=== PATIENT | female | born 1980 | race Caucasian/White ===

== ENCOUNTER 2019-10-06 16:21 | Outpatient (CLI) | payer OTHER, SELFPAY ==
--- NOTE | ~2019-10-06 | MM_ITS ---
EXAMINATION: MM screening [facility] BI w cit[facility] HISTORY: Screening mammogram TECHNIQUE: Craniocaudal and mediolateral oblique 3-D tomosynthesis images were obtained and synthetic 2-D images were generated. CAD analysis was submitted and interpreted. COMPARISON: 07/27/2018, 06/30/2018, 11/28/2016 BREAST PARENCHYMAL COMPOSITION: The breasts are heterogeneously dense, which may obscure small masses . FINDINGS: RIGHT BREAST: There is interval increase in size of cysts in the upper outer quadrant of the breast. No suspicious mass, calcification, or architectural distortion is identified. LEFT BREAST: There is a possible low density mass in the posterior third of the lower outer breast 7 cm from the nipple best seen on the craniocaudal view (CC image 32/95). IMPRESSION: 1. Possible left breast mass 2. Additional mammographic views and possible breast ultrasound are recommended. BI-RADS Category 0: Incomplete: Needs additional imaging evaluation. Reviewed, dictated and finalized at location A. IMPRESSION: 1. Possible left breast mass 2. Additional mammographic views and possible breast ultrasound are recommended . BI-RADS Category 0: Incomplete: Needs additional imaging evaluation.
== END 2019-10-06 16:22 | disposition home or self-care (01) ==
LOC: ANHIMG 16:49
PROVIDERS: PCP Physician Assistant; Visit Provider Physician Assistant
DX: Z12.31 Encounter for screening mammogram for malignant neoplasm of breast (principal); R92.8 Other abnormal and inconclusive findings on diagnostic imaging of breast
CPT/HCPCS: 77063; 77067

== ENCOUNTER 2019-10-26 11:27 | Outpatient (CLI) | payer OTHER, SELFPAY ==
--- NOTE | ~2019-10-26 | MMUS_ITS ---
EXAMINATION: MM diagnostic mammo unilat LT, US breast LT limited HISTORY: Possible left breast mass on screening mammogram TECHNIQUE: Additional 3-D tomosynthesis images of the left breast were performed and synthetic 2-D im ages were generated. CAD analysis was submitted and interpreted. High resolution limited left breast ultrasound was performed. COMPARISON: 10/06/2019, 06/30/2018, 11/28/2016 FINDINGS: MAMMOGRAPHIC FINDINGS: No definite persistent mass is identified with spot compression of the left breast. There is no suspi cious calcification or architectural distortion. ULTRASOUND: Limited ultrasound of the outer left breast is performed. There are multiple simple and complicated c ysts which measure up to 6 mm. No suspicious cystic or solid mass is identified. IMPRESSION: 1. . No mammographic or sonographic evidence of malignancy. 2. Recommend routine screening mammography in one year. BI-RADS Category 2: Benign finding(s). Reviewed, dictated and finalized at location A. IMPRESSION: 1. . No mammographic or sonographic evidence of malignancy. 2. Recommend routine screening mammography in one year. BI-RADS Category 2: Benign finding(s).
== END 2019-10-26 11:28 | disposition home or self-care (01) ==
LOC: ANHIMG 11:28
PROVIDERS: PCP Physician Assistant; Visit Provider Physician Assistant
DX: R92.8 Other abnormal and inconclusive findings on diagnostic imaging of breast (principal)
CPT/HCPCS: 76642; 77065

== ENCOUNTER 2021-01-05 12:40 | Outpatient (CLI) | payer OTHER, SELFPAY ==
--- NOTE | ~2021-01-05 | MMUS_ITS ---
EXAMINATION: MM diagnostic [facility] BI w citlaly, US breast RT limited HISTORY: Palpable mass in the upper outer quadrant of the right breast TECHNIQUE: Craniocaudal, mediolateral, and mediolateral oblique 3-D tomosynthesis images of the right breast were performed and synthetic 2-D images were generated. CAD analysis was submitted and interp reted. High resolution limited right breast ultrasound was performed. COMPARISON: 10/26/2019, 10/06/2019, 07/27/2018, 06/30/2018 BREAST PARENCHYMAL COMPOSITION: The breasts are heterogeneously dense, which may obscure small masses . FINDINGS: MAMMOGRAPHIC FINDINGS: Right breast: There is a 3.7 cm oval, obscured, equal density mass in the posterior third of the uppe r outer quadrant of the breast corresponding to the palpable abnormality of concern. Left breast: There is no evidence of suspicious mass, calcification, or architectural distortion to suggest malignancy. There has been no suspicious interval change. ULTRASOUND: There is a 3.6 x 2.5 cm cyst at the 9:00 location 8 cm from the nipple corresponding to the palpable abnormality of concern. An adjacent 1.4 x 0.9 cm cyst is present at the 9:00 location 5 cm from the n ipple. IMPRESSION: 1. Right breast cysts corresponding to the palpable abnormality of concern. No mammographic or sonogr aphic evidence of malignancy. 2. Recommend routine screening mammography in one year. BI-RADS Category 2: Benign finding(s). Reviewed, dictated and finalized at location A. IMPRESSION: 1. Right breast cysts corresponding to the palpable abnormality of concern. No mammographic or sonographic evidence of malignancy. 2. Recommend routine screening mammography in one year. BI-RADS Category 2: Benign finding(s).
== END 2021-01-05 12:41 | disposition home or self-care (01) ==
LOC: ANHIMG 12:44
PROVIDERS: PCP Physician Assistant; Visit Provider Physician Assistant
DX: N63.0 Unspecified lump in unspecified breast (principal)
CPT/HCPCS: 76642; 77062; 77066; G0279

== ENCOUNTER 2022-01-08 10:22 | Outpatient (CLI) | payer OTHER, SELFPAY ==
--- NOTE | ~2022-01-08 | MM_ITS ---
EXAMINATION: MM screening [facility] BI w [facility] HISTORY: Screening mammogram, family history of breast cancer in her mother. TECHNIQUE: Craniocaudal and mediolateral oblique 3-D tomosynthesis images were obtained and synthetic 2-D images were generated. CAD analysis was submitted and interpreted. COMPARISON: 01/05/2021, 10/26/2019, 10/06/2019, 07/27/2018, 06/30/2018 BREAST PARENCHYMAL COMPOSITION: The breasts are heterogeneously dense, which may obscure small masses . FINDINGS: Waxing and waning breast masses are consistent with cysts. There is no suspicious mass, johnathan cification, or architectural distortion to suggest malignancy in either breast. There has been no daria picious interval change. IMPRESSION: 1. No mammographic evidence of malignancy. 2. Recommend routine screening mammography in one year. BI-RADS Category 2: Benign finding(s). Reviewed, dictated and finalized at location A.
== END 2022-01-08 10:23 | disposition home or self-care (01) ==
PROVIDERS: PCP Physician Assistant; Visit Provider Physician Assistant
DX: Z12.31 Encounter for screening mammogram for malignant neoplasm of breast (principal)
CPT/HCPCS: 77063; 77067

== ENCOUNTER 2022-08-22 09:23 | Outpatient (CLI) | payer OTHER, SELFPAY ==
--- NOTE | ~2022-08-22 | US_ITS ---
EXAMINATION: US_VDOPREFBI_US DATE: 08/22/2022 10:48 INDICATION: Varicose veins of lower extremity. TECHNIQUE: Grayscale ultrasound images without and with compression and Doppler ultrasound images of the bilateral lower extremity veins were obtained. COMPARISON: None. FINDINGS: The visualized portions of right common femoral vein, profunda (deep) femoral vein, femoral vein, pop liteal vein, peroneal veins, posterior tibial veins, and greater saphenous vein outflow are patent. R ight greater saphenous vein measures 8 mm in the upper thigh, 6 mm in the lower thigh, and 5 mm in th e calf. Right small saphenous vein measures 5 mm in the upper calf and 4 mm in the lower calf. There is no reflux. The visualized portions of left common femoral vein, profunda femoral vein, femoral vein, popliteal v ein, peroneal veins, posterior tibial veins, and greater saphenous vein outflow are patent. Left grea ter saphenous vein measures 8 mm in the upper thigh, 6 mm in the lower thigh, and 4 mm in the calf. L eft small saphenous vein measures 5 mm in the upper calf and 3 mm the lower calf. IMPRESSION: 1. No deep venous thrombosis. 2. No reflux. Reviewed, dictated and finalized at location A.
== END 2022-08-22 09:24 | disposition home or self-care (01) ==
PROVIDERS: PCP Physician Assistant; Visit Provider Physician Assistant
DX: I83.93 Asymptomatic varicose veins of bilateral lower extremities (principal)
CPT/HCPCS: 93970

== ENCOUNTER → 2022-12-03 15:44 | Outpatient (CLI) | payer OTHER, SELFPAY ==
--- NOTE | ~2022-12-03 | XR_ITS ---
XR wrist LT min 3V 12/03/2022 16:44 INDICATION: Left wrist pain PROCEDURE: 4 views left wrist COMPARISON: No prior studies for comparison. FINDINGS: Fracture, dislocation or subluxation is not identified. The soft tissues appear within norm al limits. No foreign bodies are identified. IMPRESSION: 1: NO ACUTE BONE OR JOINT ABNORMALITY IDENTIFIED. Reviewed, dictated and finalized at location A.
== END ==
PROVIDERS: PCP Physician Assistant; Visit Provider Physician Assistant
DX: S69.92XA Unspecified injury of left wrist, hand and finger(s), initial encounter (principal); X58.XXXA Exposure to other specified factors, initial encounter
CPT/HCPCS: 73110

== ENCOUNTER 2022-12-17 16:38 | Outpatient (CLI) | payer OTHER, SELFPAY ==
--- NOTE | ~2022-12-17 | MR_ITS ---
MRI of the left wrist Technique: Coronal T1 weighted and proton density fat sat images, and axial and sagittal proton-densi ty and proton-density fat-sat images were acquired. Clinical History: Injury Findings: Scapholunate ligament is intact, and there is no widening of the scapholunate interval. Abhishek otriquetral ligament is intact. TFCC is intact. Bone marrow signals are unremarkable. Joint spaces are preserved. No joint effusion or synovitis evid ent. Flexor tendons in the carpal tunnel are unremarkable. Extensor tendons are unremarkable. No soft tiss ue mass or fluid collection evident. IMPRESSION: No significant abnormality identified. Reviewed, dictated and finalized at location .
== END 2022-12-17 16:39 | disposition home or self-care (01) ==
PROVIDERS: PCP Physician Assistant; Visit Provider Physician Assistant
DX: S69.92XA Unspecified injury of left wrist, hand and finger(s), initial encounter (principal)
CPT/HCPCS: 73221

== ENCOUNTER 2023-07-04 09:07 | Outpatient (CLI) | payer OTHER, SELFPAY ==
--- NOTE | ~2023-07-04 | MM_ITS ---
EXAMINATION: MM screening [facility] BI w cit[facility] HISTORY: Screening TECHNIQUE: Craniocaudal and mediolateral oblique 3-D tomosynthesis images were obtained and synthetic 2-D images were generated. CAD analysis was submitted and interpreted. COMPARISON: Comparison to multiple prior studies sequentially, with oldest reviewed study dated 06/30. BREAST PARENCHYMAL COMPOSITION: Dense: The breasts are heterogeneously dense, which may obscure small masses FINDINGS: Decreased size of mass in the upper outer quadrant of the right breast, consistent with kno wn cysts. Stable small obscured masses in the left breast, consistent with known cysts. No new masses , calcifications or architectural distortion in either breast to suggest malignancy. IMPRESSION: 1. No mammographic evidence of malignancy. 2. Recommend routine screening mammography in one year. BI-RADS Category 2: Benign finding(s). Reviewed, dictated and finalized at location A. 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
== END 2023-07-04 09:08 | disposition home or self-care (01) ==
LOC: ANHIMG 09:13
PROVIDERS: PCP Physician Assistant; Visit Provider Physician Assistant
DX: Z12.31 Encounter for screening mammogram for malignant neoplasm of breast (principal)
CPT/HCPCS: 77063; 77067

== ENCOUNTER 2024-09-01 10:25 | Outpatient (CLI) | payer OTHER, SELFPAY ==
--- NOTE | ~2024-09-01 | MM_ITS ---
EXAMINATION: MM screening [facility] BI w [facility] HISTORY: Screening TECHNIQUE: Craniocaudal and mediolateral oblique 3-D tomosynthesis images were obtained and synthetic 2-D images were generated. CAD analysis was submitted and interpreted. COMPARISON: Comparison to multiple prior studies sequentially, with oldest reviewed study dated 10/05. BREAST PARENCHYMAL COMPOSITION: Dense: The breasts are heterogeneously dense, which may obscure small masses FINDINGS: There are bilateral breast masses centered in the upper outer quadrant of both breasts, par tially obscured by fibroglandular content. Some of these masses are stable and some new or increased in size. There are no suspicious calcifications. IMPRESSION: 1. Bilateral breast masses. 2. Additional mammographic views and possible breast ultrasound are recommended. BI-RADS Category 0: Incomplete: Needs additional imaging evaluation. Reviewed, dictated and finalized at location A. IMPRESSION: 1. Bilateral breast masses. 2. Additional mammographic views and possible breast ultrasound are recommended . BI-RADS Category 0: Incomplete: Needs additional imaging evaluation.
--- OUTSIDE RECORDS SUMMARY | 2024-09-01 12:07 | XMS_ITS | Clinical Summary ---
Author Organization [facility] [place] Address [address] [place] [address] Phone Care Team Providers Care Medical Donation Professional Name Role Phone Chelsea Aquino Primary Care Provider Allergies No known active allergies Medications Levonorgestrel (MIRENA) 20 mcg/24 hr Intrauterine IUD by Intrauterine route. Active Active Problems Patient Care Coordination No te Formatting of this note migh t be different from the original. Primary Care: EDGAR Hernandez Referring Provider: Chelsea Aquino [address] [place] [address] [place] [address] Other: Problem Noted Date Diagnosed Date BRCA negative 03/20/2017 Overview (03/20/2017): The patient underwent the myriad my risk genetic testing for hereditary cancer syndromes due to her paternal family history of breast cancer and pancreatic cancer. The patient tested negative for any deleterious mutations in all 28 genes that were tested. This testing included the genes responsible for HBOC, Levin syndrome, as well as most other common hereditary cancer syndromes. Increased risk of breast cancer 03/17/2017 Vitamin D deficiency 03/17/2017 Family history of malignant neoplasm of breast in relative diagnosed when younger than 45 years of age 0902/07/2017 Family history of pancreatic cancer 02/07/2017 Encounter for genetic counseling and testing Diffuse cystic mastopathy 02/20/2009 Family history of malignant neoplasm of breast 1 Family History Medical History Relation Name Comments Cancer Father Pancreatic Cancer Maternal Grandfather Blood cancer Cancer Mother Cervical Breast Cancer Paternal Aunt 1 Susan Breast Cancer Paternal Aunt 2 Daniella Breast Cancer Paternal Cousin Kelley Breast Cancer Paternal Grandmother Healthy Sister 1 Healthy Sister 2 Healthy Sister 3 Celiac Disease Neg Hx Crohn's Disease Neg Hx Relation Name Status Comments Father Maternal Grandfather Maternal Grandmother Mother Paternal Aunt 1 Susan Paternal Aunt 2 Daniella Paternal Cousin Kelley Paternal Grandfather Paternal Grandmother Sister 1 Alive Sister 2 Alive Sister 3 Alive Social History Tobacco Use Types Packs/Day Years Used Date Smoking Tobacco: Never Smokeless Tobacco: Never Alcohol Use Standard Drinks/Week Comments Yes 0 (1 standard drink = 0.6 oz pur e alcohol) moderate Comments No Sex and Gender Information Value Date Recorded Sex Assigned at Not on file Legal Sex Female 5:44 AM [employer] Gender Identity Not on file Sexual Orientation Not on file Last Filed Vital Signs Vital Sign Reading Time Taken Comments Blood Pressure 98/67 04/22/2017 3:19 PM [employer] Pulse 84 03/17/2017 10:13 AM [employer] Temperature 36.9 C (98.4 F) 03/17/2017 10:13 AM [employer] Respiratory Rate 16 03/17/2017 10:13 AM [employer] Oxygen Saturation - - Inhaled Oxygen Concentration - - Weight 89.8 kg (198 lb) 05/30/2017 1:40 PM [employer] Height 180.3 cm (5' 11 ) 04/22/2017 3:19 PM [employer] Body Mass Index 27.62 04/22/2017 3:19 PM [employer] Plan of Treatment Health Maintenance Due Date Last Done Comments DTAP/TDAP/TD VACCINES (1 - Tdap) 1997 HEPATITIS B VACCINES (1 of 3 - 19+ 3-dose series) 1997 HPV/Cotest (21-29) 09/10/1999 CERVICAL CANCER SCREENING 2008 HPV/Cotest (30-65) 2008 PAP SMEAR 2008 BREAST CANCER SCREENING 2018 11/28/2016 COLORECTAL SCREENING 09/10/2023 Colorectal Cancer Screening 09/10/2023 FIT-DNA Q 3 years 09/10/2023 FIT/FOBT Q 1 year 09/10/2023 Flex Sig/CT Colonography Q 5 years 09/10/2023 INFLUENZA VACCINE (#1) 2023 HPV VACCINES Aged Out No longer eligi ble based on patient's age to complete this topic Procedures Procedure Name Priority Date/Time Associated Diagnosis Comments MAMMO SCREEN BILAT W OR WO CAD Routine 11/28/2016 3:08 PM CDT Visit for screening mammogram from Last 3 Months or Most Recently Relevant to Health Maintenance Results * MAMMO SCREEN BILAT W OR WO CAD (11/28/2016 3:08 PM CDT) Anatomical Region Laterality Modality Breast Bilateral Mammography 11/28/2016 3:08 PM CDT Addenda Addendum by Poppy Brantley MD on 12/14/2016 7:28 AM CDT Comparison is now made to previous sonograms from [facility]. No comparison mammograms are identified. Therefore the current study will need to serve as a baseline exam. Breast parenchyma is heterogeneously dense. No dominant masses, suspicious calcifications or areas of asymmetry or distortion are identified. IMPRESSION: Negative baseline screening mammogram. Recommend routine follow-up. OVERALL ASSESSMENT: BI-RADS category 1 - Negative Dictated from: [facility] Impressions 12/01/2016 8:23 PM CDT IMPRESSION: No prior films are currently available for comparison. The prior films will be requested and once received an addendum will be made. Overall Assessment: BI-RADS Category 0 - Incomplete: Needs comparison to prior images. Dictation Location: [facility] Narrative 12/01/2016 8:23 PM CDT BILATERAL SCREENING DIGITAL MAMMOGRAMS WITH COMPUTER ASSISTED DIAGNOSIS DATE: 11/28/2016 3:08 PM HISTORY: Annual screening study. FINDINGS: Comparison films are not available. CAD was utilized. The breast parenchyma is heterogeneously dense. Procedure Note Poppy Brantley MD - 12/01/2016 BILATERAL SCREENING DIGITAL MAMMOGRAMS WITH COMPUTER ASSISTED DIAGNOSIS DATE: 11/28/2016 3:08 PM HISTORY: Annual screening study. FINDINGS: Comparison films are not available. CAD was utilized. The breast parenchyma is heterogeneously dense. IMPRESSION IMPRESSION: No prior films are currently available for comparison. The prior films will be requested and once received an addendum will be made. Overall Assessment: BI-RADS Category 0 - Incomplete: Needs comparison to prior images. Dictation Location: [facility] us Elidia Jara MD MAMMO ORDERABLES Edited Result - Final from Last 3 Months or Most Recently Relevant to Health Maintenance Insurance [employer] [facility] OPEN ACCESS [facility] Address: [facility] [id number] [place] [address] Care Teams Medical Donation Professional Relationship Specialty Start Date End Date Chelsea Aquino PA PCP - General 10/18/08
--- OUTSIDE RECORDS SUMMARY | 2024-09-01 12:08 | XMS_ITS | Clinical Summary ---
Author Organization [facility] Address Formerly [facility] [place] [address] Care Team Providers Care Medical Transport Specialist Name Role Phone Keely Aquino Primary Care Provider [phone] Allergies No known active allergies Medications levonorgestrel 20 MCG/24HR IUD Active Levocetirizine Dihydrochloride 5 MG Tab Take 1 tablet by mouth daily. 07/02/19 20 Active vitamin D3, cholecalciferol, 5000 UNITS capsule Take 1 capsule by mouth daily. Active Multiple Vitamin (MULTIVITAMIN ADULT OR) Active Turmeric (QC TUMERIC COMPLEX OR) Active Emollient (COLLAGEN EX) Active fluticasone propionate (FLONASE) 50 MCG/ACT nasal spray fluticasone propionate 50 mcg/actuation nasal spray,suspensio n SPRAY 2 SPRAY(S) EVERY DAY BY INTRANASAL ROUTE DIRECTED. Active Active Problems Problem Noted Date Diagnosed Date BRCA negative 03/20/2017 Overview (09/29/2019): The patient underwent the myriad my risk [...] Vitamin D deficiency 03/17/2017 Family history of pancreatic cancer 02/07/2017 Diffuse cystic mastopathy 02/20/2009 Family history of malignant neoplasm of breast in relative diagnosed when younger than 45 years of age 1002/20/2009 Immunizations Immunization Administration Dates Next Due Tdap (Adacel) 09/29/2019 Family History Medical History Relation Comments Cancer Father Pancreatic Cance r. Pancreas Disease Father Cancer Maternal Grandmother Ovarian Cancer Mother In early to mid 40's. Total Hysto done for this. Cancer Paternal Grandfather Cancer Paternal Grandmother Relation Status Comments Father Maternal Grandmother Mother Alive Paternal Grandfather Paternal Grandmother Social History Tobacco Use Types Packs/Day Years Used Date Smoking Tobacco: Never Smokeless Tobacco: Never Tobacco Cessation:Counseling Given: No Alcohol Use Standard Drinks/Week Comments Yes 2 (1 standard drink = 0.6 oz pur e alcohol) Socially PHQ-2 Answer Date Recorded PHQ-2 Score - If the patient scores above 3, please move on to questions 3-9 2 12/05/2021 Comments No Sex and Gender Information Value Date Recorded Sex Assigned at Not on file Legal Sex Female 4:06 PM CDT Gender Identity Not on file Sexual Orientation Not on file Last Filed Vital Signs Vital Sign Reading Time Taken Comments Blood Pressure 119/82 12/05/2021 9:17 AM CDT Pulse 91 12/05/2021 9:17 AM CDT Temperature 37.6 C (99.6 F) 12/05/2021 9:17 AM CDT Respiratory Rate 18 12/05/2021 9:17 AM CDT Oxygen Saturation 97% 12/05/2021 9:17 AM CDT Inhaled Oxygen Concentration - - Weight 100.2 kg (221 lb) 12/05/2021 9:17 AM CDT Height 177.8 cm (5' 10 ) 12/05/2021 9:17 AM CDT Body Mass Index 31.71 12/05/2021 9:17 AM CDT Plan of Treatment Health Maintenance Due Date Last Done Comments Colorectal Cancer Screening Colonoscopy (10 Years) 1978 Hepatitis C 1996 Hepatitis B Vaccines (1 of 3 - 19+ 3-dose series) 1997 Annual Physical 12/05/2022 12/05/2021, 11/10, 09/29/2019 Mammogram Screening 01/09/2024 01/08/2022, 01/05/2021, 01/05/2021, Additional history exists COVID-19 Vaccine (2023- season) 2024 Cervical Cancer Screening Pap Smear (Age 30 to 64) Every 3 Years 12/05/2024 12/05/2021, 10/13/2019 Cervical Cancer Screening Pap with HPV Testing (Age 30 to 64) Every 5 Years 12/05/2026 12/05/2021 Cervical Cancer Screening with HPV 12/05/2026 DTaP, Tdap and Td Vaccines (2 - Td or Tdap) 09/28/2029 09/29/2019 HPV Vaccines Aged Out No longer eligi ble based on patient's age to complete this topic Meningococcal B Vaccine Aged Out No l onger eligible based on patient's age to complete this topic Meningococcal Vaccine Aged Out No britt marky eligible based on patient's age to complete this topic Pneumococcal Vaccine: Pediatrics (0 to 5 Years) and At-Risk Patients (6 to 49 Years) Aged Out No longer eligible based on patient's age to complete this topic RSV Immunizations Under 20 Months Aged Out No longer eligible based on patient's age to complete this topic Procedures Procedure Name Priority Date/Time Associated Diagnosis Comments MAMMOGRAM GENERIC (SCAN ORDER) 01/08/2022 HUMAN PAPILLOMAVIRUS, HIGH-RISK TYPES Routine 12/05/2021 12:00 PM CDT CYTOPATH CERV/VAG THIN LAYER Routine 12/05/2021 6:54 AM CDT from Last 3 Months or Most Recently Relevant to Health Maintenance Results * MAMMOGRAM GENERIC (01/08/2022) Anatomical Region Laterality Modality Other 01/08/2022 Narrative 01/08/2022 Ordered by an unspecified provider. us Documents Scanned SCANNING Final Result * HUMAN PAPILLOMAVIRUS, HIGH-RISK TYPES (12/05/2021 12:00 PM CDT) SPEC DESCRIPTION CERVICAL/END OCERVICAL 12/07/2021 7:16 AM CDT [facility] HPV DNA HIGH RISK NEGATIVE NEGATIVE 12/07/2021 3:10 PM CDT [facility] Comment:SEE CYTOLOGY REPORT 12/05/2021 12:0 0 PM CDT us Keely HERNÁNDEZ PATHOLOGY/CYTOLOGY ORDERABLE S Final Result [facility] [address] [place] [address], * Cytopath Cerv/Vag Thin Layer (12/05/2021 6:54 AM CDT) THIN PREP PAP [facility] [address] [place] [address] Department of Pathology Pathology Report CERVICAL/VAGINAL PAP SMEAR REPORT Name: JENNIFER HUTCHISON Age: 5 1980 (Age: 41) Location: [facility] Sex: F Collected Date: 12/05/2021 [facility] #: [id number] Date Received: 12/07/2021 Date Reported: 12/11/2021 Provider: KEELY HERNÁNDEZ INTERPRETATION CERVICAL/ENDOCERVI ELVIE: SATISFACTORY FOR EVALUATION. ENDOCERVICAL/TRANS FORMATION ZONE COMPONENT PRESENT. NEGATIVE FOR INTRAEPITHELIAL LESION OR MALIGNANCY. NEGATIVE FOR HIGH RISK HPV. The FDA approved Aptima HPV assay is an in vitro nucleic acid amplification test for the qualitative detection of E6/E7 viral messenger RNA (mRNA) from 14 high-risk types of human papillomavirus (HPV) in cervical specimens. The high-risk HPV types detected by the assay include: 16,18,31,33,35,39, 45,51,52,56,58,59, 66, and 68. Electronically Signed Out By BRIANDA Lynn (ASCP) CLINICAL HISTORY Z12.4 SCREENING PAP TEST ThinPrep Pap Test with HR HPV testing in patient > 30 years requested. Menstrual Status: Irregular Contraceptive History: IUD SPECIMEN SUBMITTED CERVICAL/ENDOCERVI ELVIE Specimen Received:1 Thin Prep Vial, Image Assisted Pap (SMD) Please note: The Pap smear is not a diagnostic test. It is a screening test. Negative results on combined screening (Pap test and HPV-DNA) have a high negative predictive value (99.1-100 percent) for cervical cancer. The pap test is not effective in detecting cervical adenocarcinoma. [facility] 12/05/2021 6:54 AM CDT 12/07/2021 6:54 AM CDT Comment:CERVICAL/ENDOCERVICA L Keely HERNÁNDEZ PATHOLOGY/CYTOLOGY ORDERABLE S Final Result [facility] [address] [place] [address], from Last 3 Months or Most Recently Relevant to Health Maintenance Insurance [employer] Care Teams Medical Transport Specialist Relationship Specialty [place] [address] [place] [address] PCP - General PHYSICIAN PHYSICAL THERAPY AIDE 09/29/19
--- OUTSIDE RECORDS SUMMARY | 2024-09-01 12:08 | XMS_ITS | Data Portability ---
Author Organization [facility] Ovi Conner Address [address] [place] [address] Care Team Providers Care Security Door Installer Name Role Phone FREDO FARIAS Primary Care Provider Unavailab le Assessment No assessment recorded. Plan of Treatment Reminders Order Date Submit Date Provider Last Modified By Organization Details Last Modified Time Details Appointments None recorded. Lab rapid strep group A, throat 2024 025 [email or web address] In-Office Order, Internal Use Only DO Not Attach Compendium DO Not Attach Compendium, Do Not Delete/merge, [id number] 17:54:25 influenza virus A + B + SARS-CoV-2 (COVID19) Ag panel, rapid IA, upper respirator y specimen 2024 025 [email or web address] In-Office Order, Internal Use Only DO Not Attach Compendium DO Not Attach Compendium, Do Not Delete/merge, [id number] 17:54:25 TSH + free T4, serum 2023 024 [facility], [address], [place], [address], 5 16:09:41 lipid panel, serum 2023 024 [facility], [address], [address], [place], [address], 5 16:09:42 CBC w/ auto diff 2023 024 [employer] [facility], [address], [place], [address], 5 16:09:41 vitamin B12 + folate, serum or blood 2023 024 [facility], [address], [place], [address], 5 16:09:41 CMP, serum or plasma 2023 024 [facility], [address], [place], [address], 5 16:09:41 HbA1c (hemoglobi n A1c), blood 2023 024 [facility], [address], [place], [address], 5 16:09:41 Referral None recorded. Procedures None recorded. Surgeries None recorded. Imaging MAMMO, screening, digital, bilateral 2023 024 [facility] (Mammography) , [address], [place], [address], 5 10:18:58 Medication Orders None recorded. Patient TargetsNo targets recorded. Patient InstructionsNo instructions recorded. Reason for Referral None Reported. Results Created Date Observation Date Name Description Value Unit Range Abnormal Flag Note LastModifiedBy Organization Detail LastModifiedTime 06/04/1906/04/2024 influ antonieta virus A + B + SARS- CoV-2 (COVI D19) Ag panel , rapid IA, upper respi rator y speci men Flu A negati ve Not Available In-Office Order Internal Use Only DO Not Attach Compendium DO Not Attach Compendium, Do Not Delete/merge, [id number] 06/04/2024 15:37:19 06/04/19 25 06/04/2024 influ antonieta virus A + B + SARS- CoV-2 (COVI D19) Ag panel , rapid IA, upper respi rator y speci men Flu B negati ve Not Available In-Office Order Internal Use Only DO Not Attach Compendium DO Not Attach Compendium, Do Not Delete/merge, [id number] 06/04/2024 15:37:19 06/04/19 25 06/04/2024 influ antonieta virus A + B + SARS- CoV-2 (COVI D19) Ag panel , rapid IA, upper respi rator y speci men Rapid SARS CoV 2 Ag, QL IA, respiratory specimen negati ve Not Available In-Office Order Internal Use Only DO Not Attach Compendium DO Not Attach Compendium, Do Not Delete/merge, [id number] 06/04/2024 15:37:19 06/04/19 25 06/04/2024 rapid strep group A, throa t Strep negati ve Not Available In-Office Order Internal Use Only DO Not Attach Compendium DO Not Attach Compendium, Do Not Delete/merge, [id number] 06/04/2024 15:08:50 Result Notes None recorded. Problems Name Problem SNOMED Code Status Onset Date Resolution Date Notes Provider Name and Address Organization Details Recorded Time Body mass index 25-29 - overweight 491340577 Active 024 Anthony Coates MA [facility] [place], [place] - [facility] 11:27:13 Problem Notes None recorded. Medical Equipment None Reported. Allergies No known drug allergies Medications Name Sig Start Date Stop Date Status Note LastModified by Organization Details LastModified Time Mirena 21 mcg/24 hr (up to 8 years) 52 mg intrauterin e device Take by intrauter ine route. active Not Available Not Available No t Available hydrocortis one 2.5 % topical ointment APPLY TO ARMPITS TWICE DAILY NEEDED 01/14 completed Not Available Not Available Not Available fluticasone propionate 50 mcg/actuati on nasal spray,suspe nsion SPRAY 2 SPRAYS INTRANASA LLY EVERY DAY DIRECTED. active Not Available Not Available No t Available levocetiriz ine 5 mg tablet TAKE 1 TABLET BY MOUTH EVERY DAY active Not Available Not Available No t Available Vitals Date Recorded Body weight Body mass index (BMI) Body height Respiratory rate Oxygen saturation Oxygen saturation in Arterial blood by Pulse oximetry Heart rate Systolic blood pressure Diastolic blood pressure Provider Name and Address Organization Details Last Updated DateTime 4 84576.2 1 g 27.8 kg/m2 177.8 cm 18 /min 99 % 99 % 91 /min 118 mm[Hg] 72 mm[Hg] Anthony Coates MA [facility] 11:29:38 Date Recorded Systolic blood pressure Diastolic blood pressure Provider Name and Address Organization Details Last Updated DateTime 01/15/2024 110 mm[Hg] 80 mm[Hg] EDGAR Sears Attn: Accounting,[address] [facility], [place], [address], [facility] 01/15/2024 11:58:41 Social History Question Answer Notes LastModified by Organizat ion Details LastModified Time Tobacco Smoking Status Never Smoker Anthony Coates MA null, [facility] 01/15/2024 11:25:02 Do You Have An Advance Directive? No Information not available 01/15/2024 What Is Your Level Of Alcohol Consumption? Occasional Information not available 01/15/2024 Are You Blind Or Do You Have Difficulty Seeing? No Information not available 01/15/2024 What Is Your Level Of Caffeine Consumption? Occasional No Soda, Coffee Information not available 01/15/2024 In The 14 Days Before Symptom Onset, Have You Had Close Contact With A Laboratory-confir med COVID-19 While That Case Was Ill? No Information not available 01/15/2024 In The 14 Days Before Symptom Onset, Have You Had Close Contact With A Person Who Is Under Investigation For COVID-19 While That Person Was Ill? No Information not available 01/15/2024 Have You Been To An Area Known To Be High Risk For COVID-19? No Information not available 01/15/2024 Are You Currently Employed? Yes Information not available 01/15/2024 Are You Deaf Or Do You Have Serious Difficulty Hearing? No Information not available 01/15/2024 What Type Of Diet Are You Following? 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 No Information not available 01/15/2024 What Was The Date Of Your Most Recent Tobacco Screening? 01/15/2024 Information not available 01/15/2024 What Is Your Relationship Status? Information not available 01/15/2024 Do You Use Your Seat Belt Or Car Seat Routinely? Yes Information not available 01/15/2024 Do You Have Smoke And Carbon Monoxide Detectors In Your Home? Yes Information not available 01/15/2024 Do You Feel Stressed (tense, Restless, Nervous, Or Anxious, Or Unable To Sleep At Night)? AV4885-4 Information not available 01/15/2024 Do You Use Any Illicit Or Recreational Drugs? No Information not available 01/15/2024 Do You Use Sunscreen Routinely? Yes Information not available 01/15/2024 Has Tobacco Cessation Counseling Been Provided? No Information not available 01/15/2024 Do You Or Have You Ever Used Any Other Forms Of Tobacco Or Nicotine? No Information not available 01/15/2024 Sex: Female Functional Status Question Answer Note LastModified by Organizat ion Details LastModified Time Are you able to care for yourself? Yes Information not available 01/15/2024 What is your exercise level? Occasional Information not available 01/15/2024 Mental Status None recorded. Family History Relationship Description Onset Age of this Age Resolved Age Notes LastModified by Organization Details LastModified Time Unspecified Relation Family history of breast cancer tcarterma Not available 2023 11:24:43 Maternal Grandmother Family history of breast cancer tcarterma Not available 2023 11:24:43 Paternal Grandmother Family history of breast cancer tcarterma Not available 2023 11:24:43 Sister Disorder of thyroid gland tcarterma Not available 2023 12:24:30 Mother Malignant tumor of ovary tcarterma Not available 2023 12:24:36 Father Malignant tumor of pancreas tcarterma Not available 2023 12:24:47 Medical History Condition Response Coronary Artery Disease N Other N High Blood Pressure N Atrial Fibrillation N Kidney or Bladder Problems N Thyroid Problems N GI Problems N Depression N COPD N Blood Clots N Have you had a mammogram in the last yea r? N Skin Problems N Anemia N Heart Attack ([place]) N Anxiety Disorder N Diabetes N Muscle, Joint, or Bone Problems N Seizures/Epilepsy N Have you had a colonoscopy in the last 1 0 years? N Acid Reflux (GERD) N Cancer N Stroke N Asthma N Allergies N Have you had a PSA blood test in the las t year? N High Cholesterol N Hepatitis N Liver Disease N Headaches N Heart Failure N Osteoporosis N Gynecological History Statement/Question Response Menses Monthly N Current Control Method IUD Obstetrics History GPAL:G 0 P 0 0 0 0 Past Encounters Encounter ID Performer Location Encounter Start Date Encounter Closed Date Diagnosis/Indication Diagnosis SNOMED-CT Code Diagnosis ICD10 Code Diagnosis Note [id number] EDGAR Sears [facility] [address] [place] [address] 01/15/2024 11:13:18 01/15/2024 13:28:33 Adult health examination 693969836 Z00.00 Annual wellness exam complete Cholesterol screening 27 9593613 Z13.220 Fasting lipid panel is due Diabetes m ellitus screening 409503183 Z13.1 Annual A1c screening is due Thyroid di sorder screening 359357529 Z13.29 Routine thyroid labs were ordered Long-term drug therapy 440068048 Z79.899 cmp, cbc and b12, folate labs are due Screening mammography 24 008283 Z12.31 Annual mammogram is ordered Body mass index 25-29 - overweight 567044440 Z68.27 BMI is 27.8 [id number] EDGAR Sears [facility] [address] [place] [address] 06/04/2024 14:49:22 06/07/2024 15:16:04 Sore throat 704519535 J02.9 Health Concerns Section Related Observation LastModified by Organization Detai ls LastModified Time None Recorded Concern Status LastModified by Organization Details LastModified Time None Recorded Advance Directives Directive N: Payers Encounter Date Sequence Insurance Name Policy Number Policy Lopez Covered Member ID Lopez Member ID Guarantor Name 01/15/2024 1 [employer] - ALLIED BENEFITS - OPEN ACCESS [id number] Silverio Hutchison [id number] OI Jennifer Hutchison 06/04/2024 1 [employer] Hutchison [id number] OI Jennifer Hutchison Notes Date Note Type Note Provider Name and Address Organization Details Recorded Time 01/15/2024 text/html Patient is here for annual wellness exam. She is due for all regular fasting labs. She is exercising and eating healthy and has lost weight and feels terrific. She has no complaints EDGAR Sears Attn: Accounting,[address] [place], [address], [place] [facility] 01/18/2024 23:32:31 OBGyn Episode No OBEpisode recorded.
--- OUTSIDE RECORDS SUMMARY | 2024-09-01 12:08 | XMS_ITS | Data Portability ---
Author Organization [place] [employer], Main Office Address [address] [place] [address] Assessment No assessment recorded. Plan of Treatment Reminders Order Date Submit Date Provider Last Modified By Organization Details Last Modified Time Details Appointments None recorde d. Lab None recorde d. Referral None recorde d. Procedures None recorde d. Surgeries None recorde d. Imaging XR, wrist 023 12/04/19 [facility], [address], [address] [address], [place], [address], 3 08:11:34 Medication Orders None recorde d. Patient TargetsNo targets recorded. Patient InstructionsNo instructions recorded. Reason for Referral None Reported. Results Created Date Observation Date Name Description Value Unit Range Abnormal Flag Note LastModifiedBy Organization Detail LastModifiedTime 04/30/20 21 05/01/2021 REFLE XIVE URINE CULTU RE reflexive urine culture NO CULTU RE INDIC ATED Not Available [address] [address] [place], [address], 05/01/2021 14:36:41 04/30/20 21 05/01/2021 URINA LYSIS , COMPL ETE W/REF CHIARA TO CULTU RE color yellow yellow normal Not Available [address] [address] [address] [place], [address], 05/01/2021 14:36:41 04/30/20 21 05/01/2021 URINA LYSIS , COMPL ETE W/REF CHIARA TO CULTU RE appearance clear clear normal Not Available [facility] [address] [address] [place], [address], 05/01/2021 14:36:41 04/30/20 21 05/01/2021 URINA LYSIS , COMPL ETE W/REF CHIARA TO CULTU RE specific gravity 1.017 1.001- 1.035 normal Not Available [address], [address], 05/01/2021 14:36:41 04/30/20 21 05/01/2021 URINA LYSIS , COMPL ETE W/REF CHIARA TO CULTU RE pH 5.5 5.0-8. 0 normal Not Available [address], [address], 05/01/2021 14:36:41 04/30/20 21 05/01/2021 URINA LYSIS , COMPL ETE W/REF CHIARA TO CULTU RE glucose negati ve negati ve normal Not Available [address], [address], 05/01/2021 14:36:41 04/30/20 21 05/01/2021 URINA LYSIS , COMPL ETE W/REF CHIARA TO CULTU RE bilirubin negati ve negati ve normal Not Available [address], [address], 05/01/2021 14:36:41 04/30/20 21 05/01/2021 URINA LYSIS , COMPL ETE W/REF CHIARA TO CULTU RE ketones negati ve negati ve normal Not Available [address], [address], 05/01/2021 14:36:41 04/30/20 21 05/01/2021 URINA LYSIS , COMPL ETE W/REF CHIARA TO CULTU RE occult blood negati ve negati ve normal Not Available [address], [address], 05/01/2021 14:36:41 12/20/05/01/2021 URINA LYSIS , COMPL ETE W/REF CHIARA TO CULTU RE protein negati ve negati ve normal Not Available [address], [address], 05/01/2021 14:36:41 04/30/2005/01/2021 URINA LYSIS , COMPL ETE W/REF CHIARA TO CULTU RE nitrite negati ve negati ve normal Not Available [address], [address], 05/01/2021 14:36:41 04/30/2005/01/2021 URINA LYSIS , COMPL ETE W/REF CHIRAA TO CULTU RE leukocyte esterase negati ve negati ve normal Not Available [address], [address], 05/01/2021 14:36:41 04/30/20 21 05/01/2021 URINA LYSIS , COMPL ETE W/REF CHIARA TO CULTU RE WBC none seen /hpf < or = 5 normal Not Available [address], [address], 05/01/2021 14:36:41 04/30/20 21 05/01/2021 URINA LYSIS , COMPL ETE W/REF CHIARA TO CULTU RE RBC none seen /hpf < or = 2 normal Not Available [address], [address], 05/01/2021 14:36:41 04/30/20 21 05/01/2021 URINA LYSIS , COMPL ETE W/REF CHIARA TO CULTU RE squamous epithelial cells 0-5 /hpf < or = 5 Not Available [address], [address], 05/01/2021 14:36:41 04/30/20 21 05/01/2021 URINA LYSIS , COMPL ETE W/REF CHIARA TO CULTU RE bacteria none seen /hpf none seen normal Not Available [address], [address], 05/01/2021 14:36:41 04/30/20 21 05/01/2021 URINA LYSIS , COMPL ETE W/REF CHIARA TO CULTU RE hyaline cast none seen /lpf none seen normal Not Available [address], [address], 05/01/2021 14:36:41 04/30/20 21 05/01/2021 CBC (INCL UDES DIFF/ PLT) white blood cell count 5.2 thous and/u L 3.8-10 .8 normal Not Available [address], [address], 05/01/2021 14:36:39 04/30/20 21 05/01/2021 CBC (INCL UDES DIFF/ PLT) red blood cell count 4.41 bonnie on/uL 3.80-5 .10 normal Not Available [address], [address], 05/01/2021 14:36:39 04/30/20 21 05/01/2021 CBC (INCL UDES DIFF/ PLT) hemoglobin 13.3 g/dL 11.7-1 5.5 normal Not Available [address], [address], 05/01/2021 14:36:39 04/30/20 21 05/01/2021 CBC (INCL UDES DIFF/ PLT) hematocrit 40.3 % 35.0-4 5.0 normal Not Available [address], [address], 05/01/2021 14:36:39 04/30/20 21 05/01/2021 CBC (INCL UDES DIFF/ PLT) MCV 91.4 fL 80.0-1 00.0 normal Not Available [address], [address], 05/01/2021 14:36:39 04/30/20 21 05/01/2021 CBC (INCL UDES DIFF/ PLT) MCH 30.2 pg 27.0-3 3.0 normal Not Available [address], [address], 05/01/2021 14:36:39 04/30/20 21 05/01/2021 CBC (INCL UDES DIFF/ PLT) MCHC 33.0 g/dL 32.0-3 6.0 normal Not Available [address], [address], 05/01/2021 14:36:39 04/30/20 21 05/01/2021 CBC (INCL UDES DIFF/ PLT) RDW 11.5 % 11.0-1 5.0 normal Not Available [address], [address], 05/01/2021 14:36:39 04/30/20 21 05/01/2021 CBC (INCL UDES DIFF/ PLT) platelet count 288 thous and/u L 140-40 0 normal Not Available [address], [address], 05/01/2021 14:36:39 04/30/20 21 05/01/2021 CBC (INCL UDES DIFF/ PLT) MPV 9.6 fL 7.5-12 .5 normal Not Available [address], [address], 05/01/2021 14:36:39 04/30/20 21 05/01/2021 CBC (INCL UDES DIFF/ PLT) absolute neutrophils 3167 cells /uL 1500-7 800 normal Not Available [address], [address], 05/01/2021 14:36:39 04/30/20 21 05/01/2021 CBC (INCL UDES DIFF/ PLT) absolute lymphocytes 1555 cells /uL 850-39 00 normal Not Available [address], [address], 05/01/2021 14:36:39 04/30/20 21 05/01/2021 CBC (INCL UDES DIFF/ PLT) absolute monocytes 348 cells /uL 200-95 0 normal Not Available [address], [address], 05/01/2021 14:36:39 04/30/20 21 05/01/2021 CBC (INCL UDES DIFF/ PLT) absolute eosinophils 109 cells /uL 15-500 normal Not Available [address], [address], 05/01/2021 14:36:39 04/30/20 21 05/01/2021 CBC (INCL UDES DIFF/ PLT) absolute basophils 21 cells /uL 0-200 normal Not Available [address], [address], 05/01/2021 14:36:39 04/30/20 21 05/01/2021 CBC (INCL UDES DIFF/ PLT) neutrophils 60.9 % normal Not Available [address], [address], 05/01/2021 14:36:39 04/30/20 21 05/01/2021 CBC (INCL UDES DIFF/ PLT) lymphocytes 29.9 % normal Not Available [address], [address], 05/01/2021 14:36:39 04/30/20 21 05/01/2021 CBC (INCL UDES DIFF/ PLT) monocytes 6.7 % normal Not Available [address] [place], [address], 05/01/2021 14:36:39 04/30/20 21 05/01/2021 CBC (INCL UDES DIFF/ PLT) eosinophils 2.1 % normal Not Available [address], [address], 05/01/2021 14:36:39 04/30/20 21 05/01/2021 CBC (INCL UDES DIFF/ PLT) basophils 0.4 % normal Not Available [address], [address], 05/01/2021 14:36:39 04/30/20 21 05/01/2021 HEMOG LOBIN A1C hemoglobin A1C 5.1 %_of_ total _HGB <5.7 normal Not Available [address], [address], 05/01/2021 14:36:39 04/30/20 21 05/01/2021 COMPR EHENS LOLIS METAB OLIC PANEL glucose 101 mg/dL 65-139 normal Non-f astin g refer ence inter carlita Not Available [address], [address], 05/01/2021 14:36:38 04/30/20 21 05/01/2021 COMPR EHENS LOLIS METAB OLIC PANEL urea nitrogen (BUN) 15 mg/dL 7-25 normal Not Available [address], [address], 05/01/2021 14:36:38 04/30/20 21 05/01/2021 COMPR EHENS LOLIS METAB OLIC PANEL creatinine 0.89 mg/dL 0.50-1 .10 normal Not Available [address], [address], 05/01/2021 14:36:38 04/30/20 21 05/01/2021 COMPR EHENS LOLIS METAB OLIC PANEL eGFR non-afr. slovak 80 mL/mi n/1.7 3m2 > or = 60 normal Not Available [address], [address], 05/01/2021 14:36:38 04/30/20 21 05/01/2021 COMPR EHENS LOLIS METAB OLIC PANEL eGFR 93 mL/mi n/1.7 3m2 > or = 60 normal Not Available [address], [address], 05/01/2021 14:36:38 04/30/20 21 05/01/2021 COMPR EHENS LOLIS METAB OLIC PANEL BUN/creatini ne ratio not applic able (calc ) 6-22 Not Available [address], [address], 05/01/2021 14:36:38 04/30/20 21 05/01/2021 COMPR EHENS LOLIS METAB OLIC PANEL sodium 138 mmol/ L 135-14 6 normal Not Available [address], [address], 05/01/2021 14:36:38 04/30/20 21 05/01/2021 COMPR EHENS LOLIS METAB OLIC PANEL potassium 4.1 mmol/ L 3.5-5. 3 normal Not Available [address], [address], 05/01/2021 14:36:38 04/30/20 21 05/01/2021 COMPR EHENS LOLIS METAB OLIC PANEL chloride 106 mmol/ L 98-110 normal Not Available [address], [address], 05/01/2021 14:36:38 04/30/20 21 05/01/2021 COMPR EHENS LOLIS METAB OLIC PANEL carbon dioxide 22 mmol/ L 20-32 normal Not Available [address], [address], 05/01/2021 14:36:38 04/30/20 21 05/01/2021 COMPR EHENS LOLIS METAB OLIC PANEL calcium 10.4 mg/dL 8.6-10 .2 high Not Available [address], [address], 05/01/2021 14:36:38 04/30/20 21 05/01/2021 COMPR EHENS LOLIS METAB OLIC PANEL protein, total 6.8 g/dL 6.1-8. 1 normal Not Available [address], [address], 05/01/2021 14:36:38 04/30/20 21 05/01/2021 COMPR EHENS LOLIS METAB OLIC PANEL albumin 4.2 g/dL 3.6-5. 1 normal Not Available [address], [address], 05/01/2021 14:36:38 04/30/20 21 05/01/2021 COMPR EHENS LOLIS METAB OLIC PANEL globulin 2.6 g/dL_ (calc ) 1.9-3. 7 normal Not Available [address], [address], 05/01/2021 14:36:38 04/30/20 21 05/01/2021 COMPR EHENS LOLIS METAB OLIC PANEL albumin/glob ulin ratio 1.6 (calc ) 1.0-2. 5 normal Not Available [address], [address], 05/01/2021 14:36:38 04/30/20 21 05/01/2021 COMPR EHENS LOLIS METAB OLIC PANEL bilirubin, total 0.4 mg/dL 0.2-1. 2 normal Not Available [address], [address], 05/01/2021 14:36:38 04/30/20 21 05/01/2021 COMPR EHENS LOLIS METAB OLIC PANEL alkaline phosphatase 82 U/L 31-125 normal Not Available [facility] [employer] [address] [place], [address], 05/01/2021 14:36:38 04/30/20 21 05/01/2021 COMPR EHENS LOLIS METAB OLIC PANEL AST 22 U/L 10-30 normal Not Available [address], [address], 05/01/2021 14:36:38 04/30/20 21 05/01/2021 COMPR EHENS LOLIS METAB OLIC PANEL ALT 19 U/L 6-29 normal Not Available [address], [address], 05/01/2021 14:36:38 04/30/20 21 05/01/2021 LIPID PANEL WITH RATIO S cholesterol, total 171 mg/dL <200 normal Not Available [address], [address], 05/01/2021 14:36:38 04/30/20 21 05/01/2021 LIPID PANEL WITH RATIO S HDL cholesterol 51 mg/dL > or = 50 normal Not Available [address], [address], 05/01/2021 14:36:38 04/30/20 21 05/01/2021 LIPID PANEL WITH RATIO S triglyceride s 169 mg/dL <150 high Not Available [address], [address], 05/01/2021 14:36:38 04/30/20 21 05/01/2021 LIPID PANEL WITH RATIO S LDL-choleste rol 93 mg/dL _(johnathan c) normal Refer ence range : <100 Roberta able range <100 mg/dL for prima ry preve ntion ; <70 mg/dL for patie nts with CHD or diabe tic patie nts with > or = 2 CHD risk facto rs. LDL-C is now calcu lated using the Cecilia n-Hop kins maylin marroquin, which is a valid ated novel metho d provi ding rhonda r accur acy than the Fried leatha equat ion in the estim ation of LDL-C . Cecilia n SS et al. SARINA. 2013; 310(1 9): 2061- 2068 (http ://ed ucati on.Qu Lucy josue [employer]. com/f aq/FA Q164) Not Available [facility] [address] [place], [address], 05/01/2021 14:36:38 04/30/20 21 05/01/2021 LIPID PANEL WITH RATIO S chol/HDLC ratio 3.4 (calc ) <5.0 normal Not Available [facility] [address] [address] [place], [address], 05/01/2021 14:36:38 04/30/20 21 05/01/2021 LIPID PANEL WITH RATIO S LDL/HDL ratio 1.8 (calc ) Below avera ge Risk: <2.34 Betsy Layne ge Risk: 2.35- 4.12 Moder ate Risk: 4.13- 5.56 High Risk: >5.57 Not Available [facility] [address] [address] [place], [address], 05/01/2021 14:36:38 04/30/20 21 05/01/2021 LIPID PANEL WITH RATIO S non HDL cholesterol 120 mg/dL _(johnathan c) <130 normal For patie nts with diabe neyad plus 1 major ASCVD risk facto r, treat ing to a non-H DL-C goal of <100 mg/dL (LDL- C of <70 mg/dL ) is consi lloydd a codey pemike c optio n. Not Available [facility] [address] [place], [address], 05/01/2021 14:36:38 04/30/20 21 05/01/2021 TSH+F REE T4 TSH 0.62 mIU/L normal Refer ence Range > or = 20 Years 0.40- 4.50 Pregn trent Range s First trime ster 0.26- 2.66 Secon d trime ster 0.55- 2.73 Third trime ster 0.43- 2.91 Not Available [address], [address], 05/01/2021 14:36:37 04/30/20 21 05/01/2021 TSH+F REE T4 T4, free 1.0 NG/dL 0.8-1. 8 normal Not Available [address], [address], 05/01/2021 14:36:37 08/10/19 23 08/10/2022 TSH+F REE T4 TSH 0.96 mIU/L normal Refer ence Range > or = 20 Years 0.40- 4.50 Pregn trent Range s First trime ster 0.26- 2.66 Secon d trime ster 0.55- 2.73 Third trime ster 0.43- 2.91 Not Available [address], [address], 08/10/2022 06:12:20 08/10/19 23 08/10/2022 TSH+F REE T4 T4, free 1.2 NG/dL 0.8-1. 8 normal Not Available [address], [address], 08/10/2022 06:12:20 08/10/19 23 08/10/2022 LIPID PANEL WITH RATIO S cholesterol, total 164 mg/dL <200 normal Not Available [address], [address], 08/10/2022 06:12:21 08/10/19 23 08/10/2022 LIPID PANEL WITH RATIO S HDL cholesterol 53 mg/dL > or = 50 normal Not Available [address], [address], 08/10/2022 06:12:21 08/10/19 23 08/10/2022 LIPID PANEL WITH RATIO S triglyceride s 73 mg/dL <150 normal Not Available [facility] [address] [place], [address], 08/10/2022 06:12:21 08/10/1908/10/2022 LIPID PANEL WITH RATIO S LDL-choleste rol 95 mg/dL _(johnathan c) normal Refer ence range : <100 Roberta able range <100 mg/dL for prima ry preve ntion ; <70 mg/dL for patie nts with CHD or diabe tic patie nts with > or = 2 CHD risk facto rs. LDL-C is now calcu lated using the Cecilia n-Hop kins calcu danilo n, which is a valid ated novel lior obrien accur acy than the Fried leatha equat ion in the estim ation of LDL-C . Cecilia marroquin SS et al. SARINA. 2013; 310(1 9): 2061- 2068 (http ://ed ati on.Qu Lucy [employer]. com/f aq/FA Q164) Not Available [facility] [address] [address] [address] [place], [address], 08/10/2022 06:12:21 08/10/1908/10/2022 LIPID PANEL WITH RATIO S chol/HDLC ratio 3.1 (calc ) <5.0 normal Not Available [address] [place], [address], 08/10/2022 06:12:21 08/10/19 23 08/10/2022 LIPID PANEL WITH RATIO S LDL/HDL ratio 1.8 (calc ) Below avera ge Risk: <2.34 Betsy Layne ge Risk: 2.35- 4.12 Moder ate Risk: 4.13- 5.56 High Risk: >5.57 Not Available [address], [address], 08/10/2022 06:12:21 08/10/19 23 08/10/2022 LIPID PANEL WITH RATIO S non HDL cholesterol 111 mg/dL _(johnathan c) <130 normal For patie nts with diabe neyda plus 1 major ASCVD risk facto r, treat ing to a non-H DL-C goal of <100 mg/dL (LDL- C of <70 mg/dL ) is izzy godwino n. Not Available [address] [address] [place], [address], 08/10/2022 06:12:21 08/10/19 23 08/10/2022 COMPR EHENS LOLIS METAB OLIC PANEL glucose 89 mg/dL 65-99 normal Fasti ng refer ence inter carlita Not Available [facility] [address] [address] [place], [address], 08/10/2022 06:12:22 08/10/19 23 08/10/2022 COMPR EHENS LOLIS METAB OLIC PANEL urea nitrogen (BUN) 15 mg/dL 7-25 normal Not Available [address] [address] [place], [address], 08/10/2022 06:12:22 08/10/19 23 08/10/2022 COMPR EHENS LOLIS METAB OLIC PANEL creatinine 0.88 mg/dL 0.50-0 .99 normal Not Available [address] [address] [place], [address], 08/10/2022 06:12:22 08/10/19 23 08/10/2022 COMPR EHENS LOLIS METAB OLIC PANEL eGFR 84 mL/mi n/1.7 3m2 > or = 60 normal The eGFR is based on the CKD-E PI 2020 equat ion. To calcu late the new eGFR from a previ ous Creat inine or Cysta vito C resul t, go to https ://roberta chery/jorge weston s/ kdoqi /gfr% 5Fcal culat or Not Available [address] [address] [place], [address], 08/10/2022 06:12:22 08/10/19 23 08/10/2022 COMPR EHENS LOLIS METAB OLIC PANEL BUN/creatini ne ratio NOT APPLIC ABLE (calc ) 6-22 Not Available [address], [address], 08/10/2022 06:12:22 08/10/19 23 08/10/2022 COMPR EHENS LOLIS METAB OLIC PANEL sodium 136 mmol/ L 135-14 6 normal Not Available [address], [address], 08/10/2022 06:12:22 08/10/19 23 08/10/2022 COMPR EHENS LOLIS METAB OLIC PANEL potassium 3.8 mmol/ L 3.5-5. 3 normal Not Available [address], [address], 08/10/2022 06:12:22 08/10/19 23 08/10/2022 COMPR EHENS LOLIS METAB OLIC PANEL chloride 101 mmol/ L 98-110 normal Not Available [address], [address], 08/10/2022 06:12:22 08/10/19 23 08/10/2022 COMPR EHENS LOLIS METAB OLIC PANEL carbon dioxide 29 mmol/ L 20-32 normal Not Available [address], [address], 08/10/2022 06:12:22 08/10/19 23 08/10/2022 COMPR EHENS LOLIS METAB OLIC PANEL calcium 10.2 mg/dL 8.6-10 .2 normal Not Available [address], [address], 08/10/2022 06:12:22 08/10/19 23 08/10/2022 COMPR EHENS LOLIS METAB OLIC PANEL protein, total 7.1 g/dL 6.1-8. 1 normal Not Available [address], [address], 08/10/2022 06:12:22 08/10/19 23 08/10/2022 COMPR EHENS LOLSI METAB OLIC PANEL albumin 4.4 g/dL 3.6-5. 1 normal Not Available [address], [address], 08/10/2022 06:12:22 08/10/19 23 08/10/2022 COMPR EHENS LOLIS METAB OLIC PANEL globulin 2.7 g/dL_ (calc ) 1.9-3. 7 normal Not Available [address], [address], 08/10/2022 06:12:22 08/10/19 23 08/10/2022 COMPR EHENS LOLIS METAB OLIC PANEL albumin/glob ulin ratio 1.6 (calc ) 1.0-2. 5 normal Not Available [address], [address], 08/10/2022 06:12:22 08/10/19 23 08/10/2022 COMPR EHENS LOLIS METAB OLIC PANEL bilirubin, total 0.5 mg/dL 0.2-1. 2 normal Not Available [address], [address], 08/10/2022 06:12:22 08/10/19 23 08/10/2022 COMPR EHENS LOLIS METAB OLIC PANEL alkaline phosphatase 78 U/L 31-125 normal Not Available [address] [address] [place], [address], 08/10/2022 06:12:22 08/10/19 23 08/10/2022 COMPR EHENS LOLIS METAB OLIC PANEL AST 20 U/L 10-30 normal Not Available [address], [address], 08/10/2022 06:12:22 03/31/08/10/2022 COMPR EHENS LOLIS METAB OLIC PANEL ALT 21 U/L 6-29 normal Not Available [address] [place], [address], 08/10/2022 06:12:22 08/10/19 23 08/10/2022 HEMOG LOBIN A1C hemoglobin A1C 5.0 %_of_ total _HGB <5.7 normal For the purpo se of sho reyna for the prese nce of diabe neyda: <5.7% Consi stent with the absen ce of diabe neyda 5.7-6 .4% Consi stent with incre ased risk for diabe neyda (pred iabet es) > or =6.5% Consi stent with diabe neyda This assay resul t is consi stent with a decre ased risk of diabe neyda. Curre ntly, no conse nsus exist s segun sotomayor use of hemog lobin A1c for diagn osis of diabe neyda in child ramana. Accor ding to Ameri can Diabe neyda Assoc iatio n (ADA) guide lines , hemog lobin A1c <7.0% repre sents optim al contr ol in non-p regna nt diabe tic patie nts. Diffe rent ri cs may apply to speci fic patie nt popul ation s. Stand ards of Medic al Care in Diabe neyda(A DA). Not Available [address], [address], 08/10/2022 06:12:22 08/10/1908/10/2022 CBC (INCL UDES DIFF/ PLT) white blood cell count 6.0 thous and/u L 3.8-10 .8 normal Not Available [facility] [address] [address] [place], [address], 08/10/2022 06:12:23 08/10/19 23 08/10/2022 CBC (INCL UDES DIFF/ PLT) red blood cell count 4.57 bonnie on/uL 3.80-5 .10 normal Not Available [facility] [place] [id number] [place] [address], [address], 08/10/2022 06:12:23 08/10/19 23 08/10/2022 CBC (INCL UDES DIFF/ PLT) hemoglobin 14.3 g/dL 11.7-1 5.5 normal Not Available [address], [address], 08/10/2022 06:12:23 08/10/1908/10/2022 CBC (INCL UDES DIFF/ PLT) hematocrit 42.6 % 35.0-4 5.0 normal Not Available [address], [address], 08/10/2022 06:12:23 08/10/19 23 08/10/2022 CBC (INCL UDES DIFF/ PLT) MCV 93.2 fL 80.0-1 00.0 normal Not Available [address], [address], 08/10/2022 06:12:23 08/10/19 23 08/10/2022 CBC (INCL UDES DIFF/ PLT) MCH 31.3 pg 27.0-3 3.0 normal Not Available [address], [address], 08/10/2022 06:12:23 08/10/1908/10/2022 CBC (INCL UDES DIFF/ PLT) MCHC 33.6 g/dL 32.0-3 6.0 normal Not Available [address], [address], 08/10/2022 06:12:23 08/10/19 23 08/10/2022 CBC (INCL UDES DIFF/ PLT) RDW 11.6 % 11.0-1 5.0 normal Not Available [address], [address], 08/10/2022 06:12:23 08/10/19 23 08/10/2022 CBC (INCL UDES DIFF/ PLT) platelet count 272 thous and/u L 140-40 0 normal Not Available [address], [address], 08/10/2022 06:12:23 08/10/19 23 08/10/2022 CBC (INCL UDES DIFF/ PLT) MPV 9.0 fL 7.5-12 .5 normal Not Available [address], [address], 08/10/2022 06:12:23 08/10/1908/10/2022 CBC (INCL UDES DIFF/ PLT) absolute neutrophils 4002 cells /uL 1500-7 800 normal Not Available [address], [address], 08/10/2022 06:12:23 08/10/19 23 08/10/2022 CBC (INCL UDES DIFF/ PLT) absolute lymphocytes 1548 cells /uL 850-39 00 normal Not Available [address], [address], 08/10/2022 06:12:23 08/10/19 23 08/10/2022 CBC (INCL UDES DIFF/ PLT) absolute monocytes 372 cells /uL 200-95 0 normal Not Available [address], [address], 08/10/2022 06:12:23 08/10/1908/10/2022 CBC (INCL UDES DIFF/ PLT) absolute eosinophils 48 cells /uL 15-500 normal Not Available [address], [address], 08/10/2022 06:12:23 08/10/1908/10/2022 CBC (INCL UDES DIFF/ PLT) absolute basophils 30 cells /uL 0-200 normal Not Available [address], [address], 08/10/2022 06:12:23 08/10/19 23 08/10/2022 CBC (INCL UDES DIFF/ PLT) neutrophils 66.7 % normal Not Available [facility] [address], [address], 08/10/2022 06:12:23 08/10/19 23 08/10/2022 CBC (INCL UDES DIFF/ PLT) lymphocytes 25.8 % normal Not Available [facility] [address], [address], 08/10/2022 06:12:23 08/10/19 23 08/10/2022 CBC (INCL UDES DIFF/ PLT) monocytes 6.2 % normal Not Available [facility] [address], [address], 08/10/2022 06:12:23 08/10/19 23 08/10/2022 CBC (INCL UDES DIFF/ PLT) eosinophils 0.8 % normal Not Available [facility] [address], [id number], 08/10/2022 06:12:23 08/10/19 23 08/10/2022 CBC (INCL UDES DIFF/ PLT) basophils 0.5 % normal Not Available [facility] [address], [id number], 08/10/2022 06:12:23 08/10/19 23 08/10/2022 URINA LYSIS , COMPL ETE W/REF CHIARA TO CULTU RE color YELLOW yellow normal Not Available [facility] [address], [id number], 08/10/2022 06:12:24 08/10/19 23 08/10/2022 URINA LYSIS , COMPL ETE W/REF CHIARA TO CULTU RE appearance CLOUDY clear abnormal Not Available [facility] [address], [id number], 08/10/2022 06:12:24 08/10/19 23 08/10/2022 URINA LYSIS , COMPL ETE W/REF CHIARA TO CULTU RE specific gravity 1.020 1.001- 1.035 normal Not Available [address], [id number], 08/10/2022 06:12:24 08/10/19 23 08/10/2022 URINA LYSIS , COMPL ETE W/REF CHIARA TO CULTU RE pH 6.5 5.0-8. 0 normal Not Available [address], [id number], 08/10/2022 06:12:24 08/10/19 23 08/10/2022 URINA LYSIS , COMPL ETE W/REF CHIARA TO CULTU RE glucose NEGATI VE negati ve normal Not Available [address], [id number], 08/10/2022 06:12:24 08/10/19 23 08/10/2022 URINA LYSIS , COMPL ETE W/REF CHIARA TO CULTU RE bilirubin NEGATI VE negati ve normal Not Available [address], [id number], 08/10/2022 06:12:24 08/10/19 23 08/10/2022 URINA LYSIS , COMPL ETE W/REF CHIARA TO CULTU RE ketones NEGATI VE negati ve normal Not Available [address], [id number], 08/10/2022 06:12:24 08/10/19 23 08/10/2022 URINA LYSIS , COMPL ETE W/REF CHIARA TO CULTU RE occult blood NEGATI VE negati ve normal Not Available [address], [id number], 08/10/2022 06:12:24 08/10/19 23 08/10/2022 URINA LYSIS , COMPL ETE W/REF CHIARA TO CULTU RE protein NEGATI VE negati ve normal Not Available [address], [id number], 08/10/2022 06:12:24 08/10/19 23 08/10/2022 URINA LYSIS , COMPL ETE W/REF CHIARA TO CULTU RE nitrite NEGATI VE negati ve normal Not Available [address], [id number], 08/10/2022 06:12:24 08/10/19 23 08/10/2022 URINA LYSIS , COMPL ETE W/REF CHIARA TO CULTU RE leukocyte esterase NEGATI VE negati ve normal Not Available [address], [id number], 08/10/2022 06:12:24 08/10/19 23 08/10/2022 URINA LYSIS , COMPL ETE W/REF CHIARA TO CULTU RE WBC 0-5 /hpf < or = 5 normal Not Available [address] [address], [address], 08/10/2022 06:12:24 08/10/19 23 08/10/2022 URINA LYSIS , COMPL ETE W/REF CHIARA TO CULTU RE RBC NONE SEEN /hpf < or = 2 normal Not Available [address], [address], 08/10/2022 06:12:24 08/10/19 23 08/10/2022 URINA LYSIS , COMPL ETE W/REF CHIARA TO CULTU RE squamous epithelial cells 10-20 /hpf < or = 5 abnormal Not Available [address], [address], 08/10/2022 06:12:24 08/10/19 23 08/10/2022 URINA LYSIS , COMPL ETE W/REF CHIARA TO CULTU RE bacteria MODERA TE /hpf none seen abnormal Not Available [address], [address], 08/10/2022 06:12:24 08/10/19 23 08/10/2022 URINA LYSIS , COMPL ETE W/REF CHIARA TO CULTU RE hyaline cast 0-5 /lpf none seen abnormal Not Available [address], [address], 08/10/2022 06:12:24 08/10/19 23 08/10/2022 URINA LYSIS , COMPL ETE W/REF CHIARA TO CULTU RE note This urine was joseph zed for the prese nce of WBC, RBC, bacte opal, casts , and other forme d eleme nts. Only those eleme nts seen were repor italia. Not Available [address], [address], 08/10/2022 06:12:24 08/10/19 23 08/10/2022 REFLE XIVE URINE CULTU RE reflexive urine culture NO CULTU RE INDIC ATED Not Available [address], [address], 08/10/2022 06:12:24 01/11/20 21 01/05/2021 MAMMO , scree maribell, digit al, bilat eral No observ ation record ed. [id number], [place], [address], 07/10/2022 16:58:19 04/02/20 22 01/08/2022 MAMMO , scree maribell, digit al, bilat eral No observ ation record ed. [id number], [place], [address], 07/10/2022 16:58:19 12/05/19 23 12/03/2022 XR, wrist No observ ation record ed. [email or web address] [address], [place], [address], 12/04/2022 15:53:10 12/20/19 23 12/17/2022 MRI, wrist , w/o contr ast No observ ation record ed. [address] [facility] [address], [place], [address], 12/20/2022 11:12:43 12/20/19 23 12/17/2022 MRI, wrist , w/o contr ast No observ ation record ed. [address] [facility] [address], [place], [address], 12/20/2022 11:12:13 Result Notes None recorded. Problems Name Problem SNOMED Code Status Onset Date Resolution Date Notes Provider Name and Address Organization Details Recorded Time Bacterial conjunctiviti s 202863981 Active Not Available [facility] 3 16:57:07 Acute sinusitis 73657360 Active Not Available [facility] 3 16:57:07 Body mass index 25-29 - overweight 546207601 Active Not Available [facility] 3 16:57:07 Lazy eye 344120587 Active Not Available [facility] 3 16:57:07 Acute otitis media 7830112 Active Not Available [facility] 3 16:57:07 Seasonal allergic rhinitis 214151012 Active Not Available [facility] 3 16:57:07 Change in skin lesion 777491155 Active Not Available [facility] 3 16:57:07 Cough 08171139 Active Not Available [facility] 3 16:57:07 Hoarse 35529011 Active 2021 Not Available [facility] 3 16:57:07 Upper respiratory infection 42325696 Active Not Available [facility] 3 16:57:07 Blepharospasm 11483923 Active Not Available [facility] 3 16:57:07 Allergic rhinitis 03172109 Active Not Available [facility] 3 16:57:07 Varicose veins of lower extremity 63291833 Active 2022 Not Available [facility] 3 16:57:07 Congestion of nasal sinus 90010783 Active 2021 Not Available [facility] 3 16:57:07 Skin lesion 17956904 Active Not Available [facility] 3 16:57:08 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 Procedures Surgical History None recorded. Imaging Results Imaging Date Name Status LastModified by Organiz ation Details LastModified Time 01/05/2021 MAMMO, screening, digital, bilateral completed [id number] [place] [address], [address], 07/10/2022 16:58:19 01/08/2022 MAMMO, screening, digital, bilateral completed [id number] [facility], [place], [address], 07/10/2022 16:58:19 12/03/2022 XR, wrist completed [email or web address] [facility] [address], [place], [address], 12/04/2022 15:53:10 12/17/2022 MRI, wrist, w/o contrast completed [address] [place] [address], [address], 12/20/2022 11:12:43 12/17/2022 MRI, wrist, w/o contrast completed [address] [place] [address], [address], 12/20/2022 11:12:13 Procedure Notes None recorded. Medical Equipment None Reported. Medications Name Sig Start Date Stop Date Status Note LastModified by Organization Details LastModified Time amoxicillin 500 mg capsule 01/04 completed Not Available Not Available Not Available azithromyci n 250 mg tablet TAKE 2 TABLETS (500 MG) BY ORAL ROUTE ONCE DAILY FOR 1 DAY THEN 1 TABLET (250 MG) BY ORAL ROUTE ONCE DAILY FOR 4 DAYS 08/30 completed Not Available Not Available Not Available triamcinolo ne acetonide 0.1 % topical cream 10/10 completed Not Available Not Available Not Available amoxicillin 875 mg tablet Take 1 tablet every 12 hours by oral route. active Not Available Not Available No t Available cephalexin 500 mg capsule TAKE 1 CAPSULE BY MOUTH EVERY 6 HOURS 02/03 completed Not Available Not Available Not Available methylpredn isolone 4 mg tablets in a dose pack Take by oral route for 6 days. 08/31 completed Not Available Not Available Not Available Vitamin D2 1,250 mcg (50,000 unit) capsule TAKE 1 CAPSULE BY MOUTH EVERY WEEK 10/10 completed Not Available Not Available Not Available Tussionex Pennkinetic ER 10 mg-8 mg/5 mL suspension, extended release Take 5 mL every 12 hours by oral route as needed. active Not Available Not Available No t Available cefdinir 300 mg capsule TAKE 1 CAPSULE(S ) EVERY 12 HOURS BY ORAL ROUTE WITH MEALS. active Not Available Not Available No t Available fluticasone propionate 50 mcg/actuati on nasal spray,suspe nsion SPRAY 2 SPRAY(S) EVERY DAY BY INTRANASA L ROUTE DIRECTED. active Not Available Not Available No t Available tobramycin 0.3 %-dexametha sone 0.1 % eye drops,suspe nsion INSTILL 1 DROP INTO each eye BY OPHTHALMI C ROUTE EVERY 6 HOURS x 5 days active Not Available Not Available No t Available Vigamox 0.5 % eye drops INSTILL 1 DROP INTO each eye BY OPHTHALMI C ROUTE 3 TIMES PER DAY active Not Available Not Available No t Available Zyrtec takes daily 05/27 completed Not Available Not Available Not Available Mirena use as directed 2014 active Not Available Not Available Not Avai lable levocetiriz ine 5 mg tablet TAKE 1 TABLET BY MOUTH EVERY DAY active Not Available Not Available No t Available Flonase Allergy Relief otc, takes prn 2020 active Not Available Not Available Not Avai lable Vitals Date Recorded Body mass index (BMI) Body height Oxygen saturation Oxygen saturation in Arterial blood by Pulse oximetry Heart rate Body temperature Body weight Systolic blood pressure Diastolic blood pressure Provider Name and Address Organization Details Last Updated DateTime 1 32.2 kg/m2 177.17 cm 98 % 98 % 101 /min 97.2 [degF] 772392. 1 g 110 mm[Hg] 70 mm[Hg] Not Available [facility] 3 16:56:25 Date Recorded Body mass index (BMI) Body height Oxygen saturation Oxygen saturation in Arterial blood by Pulse oximetry Heart rate Body temperature Body weight Systolic blood pressure Diastolic blood pressure Provider Name and Address Organization Details Last Updated DateTime 3 33.1 kg/m2 175.26 cm 99 % 99 % 101 /min 98.1 [degF] 692038. 69 g 122 mm[Hg] 72 mm[Hg] Not Available [facility] 3 16:56:25 Date Recorded Body height Provider Name an d Address Organization Details Last Updated DateTime 07/13/2020 177.17 cm Not Available [facility] 3 16:56:25 Date Recorded Body height Provider Name an d Address Organization Details Last Updated DateTime 05/31/2021 177.17 cm Not Available [facility] 3 16:56:25 Date Recorded Body height Body mass index (BMI) Body weight Body temperature Heart rate Oxygen saturation Oxygen saturation in Arterial blood by Pulse oximetry Systolic blood pressure Diastolic blood pressure Provider Name and Address Organization Details Last Updated DateTime 3 175.26 cm 32.5 kg/m2 78031.3 2 g 97.6 [degF] 74 /min 97 % 97 % 118 mm[Hg] 80 mm[Hg] Samantha Gamboa RN [place] - [facility] [employer] [facility] 3 15:58:07 Social History Question Answer Notes LastModified by Organizat ion Details LastModified Time Tobacco Smoking Status Never Smoker Not Available [facility] 07/10/2022 16:55:52 What Is Your Level Of Alcohol Consumption? Occasional [id number] Information not available 07/10/2022 What Is Your Level Of Caffeine Consumption? Moderate [id number] Information not available 07/10/2022 How Much Tobacco Do You Chew? None [id number].[id number] Information not available 07/10/2022 In The 14 Days Before Symptom Onset, Have You Had Close Contact With A Laboratory-confir med COVID-19 While That Case Was Ill? No [id number] Information not available 07/10/2022 In The 14 Days Before Symptom Onset, Have You Had Close Contact With A Person Who Is Under Investigation For COVID-19 While That Person Was Ill? No [id number].[id number] Information not available 07/10/2022 What Type Of Diet Are You Following? REGULAR [id number].[id number] Information not available 07/10/2022 Which Illicit Or Recreational Drugs Have You Used? None [id number] Information not available 07/10/2022 Do You Or Have You Ever Used E-cigarettes Or Vape? 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 Yes [id number].[id number] Information not available 07/10/2022 What Was The Date Of Your Most Recent Tobacco Screening? 07/13/2020 [id number] Information not available 07/10/2022 Do You Or Have You Ever Used Smokeless Tobacco? Never Used Smokeless Tobacco [id number].[id number] Information not available 07/10/2022 How Much Tobacco Do You Smoke? No MIGRATION.[id number] Information not available 07/10/2022 How Many Years Have You Smoked Tobacco? 0 MIGRATION.[id number] Information not available 07/10/2022 Have You Recently Traveled Abroad? No MIGRATION.[id number] Information not available 07/10/2022 Sex: Unknown Functional Status Question Answer Note LastModified by Organizat ion Details LastModified Time What is your exercise level? Moderate [id number] Information not available 07/10/2022 Mental Status None recorded. Family History Relationship Description Onset Age of this Age Resolved Age Notes LastModified by Organization Details LastModified Time Father Malignant tumor of pancreas 54 [id number] Not available 07/10/2022 16:55:56 Paternal Grandmother Malignant tumor of breast [id number] Not available 07/10/2022 16:55:56 Paternal Aunt Malignant tumor of pancreas MIGRATION.[id number] Not available 07/10/2022 16:55:56 Maternal Grandmother Myocardial infarction 59 [id number] Not available 07/10/2022 16:55:56 Medical History Condition Response BLINDNESS N NERVE DISEASE N RHEUMATIC FEVER N BLADDER PROBLEMS N KIDNEY STONES N OTHER # 1 N POLIO N LUNG DISEASE/DISORDER N RADIATION / CHEMOTHERAPY N COPD N Other # 2 N BLOOD DISEASES N SURGERY N EAR OR HEARING PROBLEMS N MUMPS N DEPRESSION (INCLUDING POST ) N BOWEL PROBLEMS N STROKE/TIA N ULCERS N BENIGN PROSTATIC HYPERPLASIA N MEASLES N MYOCARDIAL INFARCTION N OBESITY N GERD/NAUSEA N ANEURYSM N URINARY/BLADDER/KIDNEY PROBLEMS N INPATIENT PSYCH CARE N CORONARY ARTERY DISEASE (CAD) N ADDICTION CONCERNS N ENDOMETRIOSIS N Impotence N USE OF BLOOD THINNERS N SKIN PROBLEMS Y GASTROINTESTINAL DISORDER N PERIPHERAL VASCULAR DISEASE N MUSCLE,JOINT OR BONE PROBLEMS N GASTROINTESTINAL BLEEDING N BLOOD CLOTS N ASTHMA N CATARACTS N ERECTILE DYSFUNCTION N VARICOSITIES N GI PROBLEMS N Low Testosterone N INFERTILITY N AIDS/HIV N LIVER DISEASE N MALE HYPOGONADISM N HYPERTENSION N Deficiency N ANXIETY DISORDER N BLOOD TRANSFUSION N ANEMIA/BLOOD DISORDER N CHRONIC EAR INFECTIONS N BRONCHITIS N TUBERCULOSIS N GLAUCOMA N DIVERTICULITIS N SLEEP APNEA N CHICKENPOX N INFECTIOUS DISEASE N HEART ARRHYTHMIA N PROSTATE N INSOMNIA N HIGH CHOLESTEROL / HYPERLIPIDEMIA N HYPERTHYROIDISM N EYE PROBLEMS N NEUROLOGICAL PROBLEMS N EDEMA N CHRONIC PAIN SYNDROME N HYPOTHYROIDISM N CAROTID BLOCKAGE N CONSTIPATION N BACK / NECK PROBLEMS N HAVE YOU BEEN HOSPITALIZED OR SEEN IN [facility] IN THE PAST YEAR ? N ATHEROSCLEROSIS N BREAST PROBLEMS Y DIALYSIS N ECZEMA N OSTEOPOROSIS N ARTHRITIS N NO SIGNIFICANT PAST MEDICAL HISTORY N APPENDICITIS N DIABETES, TYPE N BAD TEETH N ENT N HEARTBURN / REFLUX Y AUTISM SPECTRUM DISORDER (ASD) N HEPATITIS / LIVER DISEASE N PULMONARY DISEASE N GOUT N SLEEP DISORDER N ALZHEIMER'S DISEASE N Brain Problems N HERPES N DEMENTIA N HEADACHES/MIGRAINES Y SEIZURES/EPILEPSY N VASCULAR DISEASE N PACEMAKER N Blood Disorder N DIZZINESS N HEART DISEASE/HEART PROBLEMS N KIDNEY DISEASE N MULTIPLE SCLEROSIS N CARDIAC ARRHYTHMIA N CANCER: SPECIFY N ANESTHESIA COMPLICATIONS N ATRIAL FIBRILLATION N Gall Stones N PULMONARY EMBOLISM N AUTOIMMUNE DISEASE N Gynecological History Statement/Question Response Menses Monthly N Abnormal Pap Y Date of Last Pap 10/11/2019 Date of Last Mammogram 10/26/2019 Current Control Method IUD Sexually Active? Y Obstetrics History GPAL:G 0 P 0 0 0 0 Immunizations Vaccine Type Date Status Note Provider Nam e and Address Organization Details Recorded Time Tdap 10/11/2019 completed Not Available [facility] 07/10/2022 16:58:15 Past Encounters Encounter ID Performer Location Encounter Start Date Encounter Closed Date Diagnosis/Indication Diagnosis SNOMED-CT Code Diagnosis ICD10 Code Diagnosis Note [id number] [facility] [address] [place] [address] 07/13/2020 00:00:00 08/03/2020 23:42:57 [id number] [facility] [address] [place] [address] 02/06/2021 00:00:00 02/06/2021 20:00:05 [id number] [facility] [address] [place] [address] 05/31/2021 00:00:00 06/11/2021 00:11:03 [id number] [facility] [address] [place] [address] 07/03/2022 00:00:00 07/06/2022 22:25:01 [id number] EDGAR Sears [facility] [address] [place] [address] 12/03/2022 15:48:46 12/03/2022 16:32:56 Injury of wrist 308572346 S69.92XA check xray of wrist to evaluate for possible small fracture that occurred over 18 months ago and was never evaluated. If xray is normal, she will need to proceed with MRI of the wrist to assess for ligamentou s injury. Health Concerns Section Related Observation LastModified by Organization Detai ls LastModified Time None Recorded Concern Status LastModified by Organization Details LastModified Time None Recorded Advance Directives Directive None Recorded Payers Encounter Date Sequence Insurance Name Policy Number Policy Lopez Covered Member ID Lopez Member ID Guarantor Name 12/03/2022 1 [employer] - OPEN ACCESS [id number] Silverio Hutchison [id number] BRIAN Hutchison Notes Date Note Type Note Provider Name and Address Organization Details Recorded Time 07/13/2020 text/html Sinusitis/Allerg yRepo rted bypatient.Quality:no itching; no throbbing; minimal discomfort; improving;hoarseness; congested;colored phlegm;productive cough;watering Severity:no pain; does not limit daily activities; no nosebleeds (epistaxis);frequent breathing through the mouth(only at night) Duration:infrequent; symptoms usually last ; had 1 sinus infections treated with antibiotics in the last year Onset/Timing:new onset; occurs during particular seasons of the year spring; initially started 6days ago; progressively worse over last 3days Context:no recent upper respiratory infection; no recent sick contacts; not worse around animals; not worse around pollen; not worse around dust; not worse around molds; not worse when mowing grass; not worse with certain foods; not worse with odors;worse with environmental exposure Alleviating factors:relief with nasal steroid Flonase Aggravating factors:not worse with change in medication; worse during an upper respiratory infection (a cold); worse when allergies are active; worse when weather yo-yo's on us Associated Symptoms:no fever; no weight loss; no hemoptysis; no hematemesis; no difficulty breathing; no feeling of strangulation; no nausea or vomiting; no headache; no facial pain; no sore throat; not constantly clearing the throat; no decreased sense of smell; no ear fullness; no nasal itching; no eye itching; no skin itching; no dental pain; no muscle aches;nasal discharge from both nostrils;cough;nasal discharge;pain behind the eyes both Risk Factors:no current smoking or tobacco use; no history of smoking; no increased stress; no family history of allergies; no history of nasal trauma; no allergy to aspirin; no history of nasal polyps; no history of asthma; no chemotherapy; no DM; no HIV; no immunodeficiency Prior Treatmenthas not tried any otc, decongestants or cold medicine Not Available [facility] 08/03/2020 23:42:57 02/06/2021 text/html Generic HPI TemplateReported bypatient.Notes:Pt is here today for her wellness exam, doing fine, no complaints Not Available [facility] 02/06/2021 20:00:05 05/31/2021 text/html Sinusitis/Allerg yRepo rted bypatient.Quality:no pain; no throbbing; minimal discomfort;hoarseness Severity:no frequent breathing through the mouth; no nosebleeds (epistaxis); no snoring; mild;limits daily activities(but getting better.) Duration:continuous Onset/Timing:gradual onset; initially started 2weeks ago Context:no recent upper respiratory infection; no recent sick contacts; not worse with seasonal allergen exposure; not worse around animals; not worse around pollen; not worse around dust; not worse around molds; not worse with environmental exposure; not worse when mowing grass; not worse with certain foods; not worse with odors; COVID-19 pos 05/21/21 Alleviating factors:relief with OTC meds pseudofed ((wallphed) but stopped that now) Aggravating factors:not worse with change in medication; not worse during an upper respiratory infection (a cold); not worse when allergies are active Associated Symptoms:no fever; no weight loss; no hemoptysis; no hematemesis; no difficulty breathing; no feeling of strangulation; no nausea or vomiting; no facial pain; no sinus pain; no sore throat; no decreased sense of smell; no nasal passage blockage; no ear fullness; no nasal itching; no eye itching; no pain behind the eyes; no skin itching; no dental pain; no muscle aches;nasal discharge from both nostrils;cough;thick phlegm in throat;nasal discharge Risk Factors:no current smoking or tobacco use; no history of smoking; no increased stress; no family history of allergies; no history of nasal trauma; no allergy to aspirin; no history of nasal polyps; no history of asthma; no chemotherapy; no DM; no HIV; no immunodeficiency Not Available [facility] 06/11/2021 00:11:03 12/03/2022 text/html Generic HPI TemplateReported bypatient.Location:le ft wrist Quality:soreness, sharp pain, aching Context:old fall a few years ago is when it started. Aggravating factors:movement, weight bearing EDGAR Sears [address] [facility], [facility] [address], [place], [address], [facility] 12/06/2022 10:39:44 OBGyn Episode No OBEpisode recorded.
--- OUTSIDE RECORDS SUMMARY | 2024-09-01 12:08 | XMS_ITS | Clinical Summary ---
Author Organization [facility] Care Team Providers Care Leaf Sticker Name Role Phone Unavailable Primary Care Provider Unavailabl e Social History Tobacco Use Types Packs/Day Years Used Date Smoking Tobacco: Never Assessed Comments Unknown Sex and Gender Information Value Date Recorded Sex Assigned at Not on file Legal Sex Female 2:38 PM [employer]AP[employer] SE[employer] Gender Identity Not on file Sexual Orientation Not on file Plan of Treatment Health Maintenance Due Date Last Done Comments Hepatitis C Virus (HCV) Screening 1978 Hepatitis B Immunization (1 of 3 - 19+ 3-dose series) 1997 Pap Smear 09/10/1999 Cervical Cancer Screening (CCS) 2008 HPV/Cotest 2008 Discussion re Starting/Frequ ency of Mammograms 2018 Colonoscopy 09/10/2023 Colorectal Cancer Screening 09/10/2023 Influenza Immunization (#1) 2024 SARS-COV-2 Immunization ( season) 2024 Respiratory Syncytial Virus (RSV) Immunization (Adult) (1 - 1-dose 75+ series) 2053 DTaP/Tdap/Td Immunization Discontinued 09/29/2019 TdaP Immunization Completed 09/29/2019 Meningococcal Immunization (ACWY) Aged Out No longer eligible based on patient's age to complete this topic Pneumococcal Immunization Combined Aged Out No longer eligible b ased on patient's age to complete this topic Rotavirus Immunization Aged Out No lo nger eligible based on patient's age to complete this topic
== END 2024-09-01 10:26 | disposition home or self-care (01) ==
LOC: ANHIMG 10:29
PROVIDERS: PCP Physician Assistant; Visit Provider Physician Assistant
DX: Z12.31 Encounter for screening mammogram for malignant neoplasm of breast (principal); N63.21 Unspecified lump in the left breast, upper outer quadrant; N63.11 Unspecified lump in the right breast, upper outer quadrant
CPT/HCPCS: 77063; 77067

== ENCOUNTER 2024-09-16 11:05 | Outpatient (CLI) | payer OTHER, SELFPAY ==
--- NOTE | ~2024-09-16 | MMUS_ITS ---
EXAMINATION: US breast BI limited, MM diagnostic katina BI w citlaly HISTORY: Follow-up bilateral breast masses. TECHNIQUE: Additional 3-D tomosynthesis images of the breasts were performed and synthetic 2-D images were generated. CAD analysis was submitted and interpreted. High resolution bilateral limited breast ultrasound was performed. COMPARISON: Comparison to multiple prior studies sequentially, with oldest reviewed study dated 10/05. BREAST PARENCHYMAL COMPOSITION: Dense: The breasts are heterogeneously dense, which may obscure small masses FINDINGS: MAMMOGRAPHIC FINDINGS: There are persistent obscured asymmetries in the upper outer quadrant of both breasts. No discrete ma ss is identified. No suspicious calcifications. No architectural distortion. ULTRASOUND: Limited right breast ultrasound: There are multiple cysts of the right breast. At 10:00, 2 cm from th e nipple there is an oval hypoechoic mass measuring 6 x 6 x 4 mm with posterior acoustic shadowing, s lightly irregular margins and no internal vascularity. Limited left breast ultrasound: At 2:00, 1 cm from the nipple there is a 1 cm cyst at 3:00 near the n ipple there is an oval circumscribed parallel oriented hypoechoic 5 mm mass without posterior feature s or internal vascularity, likely benign. IMPRESSION: 1. Suspicious right breast mass at 10:00, 2 cm from the nipple measuring 6 mm. Ultrasound-guided righ t breast biopsy recommended. Probable benign left breast mass at 3:00 near the nipple measuring 5 mm. Six-month follow-up breast ultrasound recommended to assess stability of this mass. 2. Ultrasound-guided right breast biopsy recommended. BI-RADS category 4, suspicious findings. Reviewed, dictated and finalized at location A. IMPRESSION: 1. Suspicious right breast mass at 10:00, 2 cm from the nipple measuring 6 mm. Ultrasound-guided right breast biopsy recommended. Probable benign left breast mass at 3:00 near the nipple measuring 5 mm. Six-month follow-up breast ultraso und recommended to assess stability of this mass. 2. Ultrasound-guided right breast biopsy recommended. BI-RADS category 4, suspicious findings.
--- OUTSIDE RECORDS SUMMARY | 2024-09-16 11:17 | XMS_ITS | Clinical Summary ---
Author Organization [facility] [place] Address [address] [place] [address] Phone Care Team Providers Care General Maintenance Technician Name Role Phone Chelsea Aquino Primary Care Provider [phone] Allergies No known active allergies Medications Levonorgestrel (MIRENA) 20 mcg/24 hr Intrauterine IUD by Intrauterine route. Active Active Problems Patient Care Coordination No te Formatting of this note migh t be different from the original. 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 Gender Identity Not on file Sexual Orientation Not on file Last Filed Vital Signs Vital Sign Reading Time Taken Comments Blood Pressure 98/67 04/22/2017 3:19 PM DITCHING MACHINE OPERATOR Pulse 84 03/17/2017 10:13 AM DITCHING MACHINE OPERATOR Temperature 36.9 C (98.4 F) 03/17/2017 10:13 AM DITCHING MACHINE OPERATOR Respiratory Rate 16 03/17/2017 10:13 AM DITCHING MACHINE OPERATOR Oxygen Saturation - - Inhaled Oxygen Concentration - - Weight 89.8 kg (198 lb) 05/30/2017 1:40 PM DITCHING MACHINE OPERATOR Height 180.3 cm (5' 11 ) 04/22/2017 3:19 PM DITCHING MACHINE OPERATOR Body Mass Index 27.62 04/22/2017 3:19 PM DITCHING MACHINE OPERATOR Plan of Treatment Health Maintenance Due Date [...] is now made to previous sonograms from [facility]. No comparison mammograms are identified. Therefore the current study will need to serve as a baseline exam. Breast parenchyma is heterogeneously dense. No dominant masses, suspicious calcifications or areas of asymmetry or distortion are identified. IMPRESSION: Negative baseline screening mammogram. Recommend routine follow-up. OVERALL ASSESSMENT: BI-RADS category 1 - Negative Dictated from: [facility] Impressions 12/01/2016 8:23 PM CDT IMPRESSION: No prior films are currently available for comparison. The prior films will be requested and once received an addendum will be made. Overall Assessment: BI-RADS Category 0 - Incomplete: Needs comparison to prior images. Dictation Location: [facility] Narrative 12/01/2016 8:23 PM CDT BILATERAL SCREENING [...] Needs comparison to prior images. Dictation Location: [facility] us Elidia Jara MD MAMMO ORDERABLES Edited Result - Final from Last 3 Months or Most Recently Relevant to Health Maintenance Insurance [employer] [facility] [place] [facility] [place] Address: [facility] [address] [place] [address] Care Teams General Maintenance Technician Relationship Specialty Start Date End Date Chelsea Aquino PA PCP - General 10/18/08
--- OUTSIDE RECORDS SUMMARY | 2024-09-16 11:17 | XMS_ITS | Clinical Summary ---
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
--- OUTSIDE RECORDS SUMMARY | 2024-09-16 11:17 | XMS_ITS | Data Portability ---
Author Organization [facility] Ovi Conner Address [address] [place] [address] Care Team Providers Care Punch Molder Name Role Phone FREDO FARIAS Primary Care Provider Unavailab le Assessment No assessment recorded. Plan of Treatment Reminders Order Date Submit Date Provider Last Modified By Organization Details Last Modified Time Details Appointments None recorded. Lab rapid strep group A, throat 2024 025 [email or web address] In-Office Order, Internal Use Only DO Not Attach Compendium DO Not Attach Compendium, Do Not Delete/merge, [id number] 17:54:25 influenza virus A + B + SARS-CoV-2 (COVID19) Ag panel, rapid IA, upper respirator y specimen 2024 025 [email or web address] In-Office Order, Internal Use Only DO Not Attach Compendium DO Not Attach Compendium, Do Not Delete/merge, [id number] 5 17:54:25 TSH + free T4, serum 2023 024 [facility], [address], [place], [address], 5 16:09:41 lipid panel, serum 2023 024 [facility], [address], [address], [place], [address], 5 16:09:42 CBC w/ auto diff 2023 024 [facility], [address], [place], [address], 5 16:09:41 vitamin B12 + folate, serum or blood 2023 024 [facility], [address], [place], [address], 5 16:09:41 CMP, serum or plasma 2023 024 [facility], [address], [place], [address], 5 16:09:41 HbA1c (hemoglobi n A1c), blood 2023 024 [facility], [address], [place], [address], 5 16:09:41 Referral None recorded. Procedures None recorded. Surgeries None recorded. Imaging MAMMO, screening, digital, bilateral 2023 024 [facility] (Mammography) , [address], [place], [address], 5 10:18:58 Medication Orders None recorded. Patient [...] DO Not Attach Compendium, Do Not Delete/merge, [id number] 06/04/2024 15:37:19 06/04/19 25 06/04/2024 influ antonieta virus A + B + SARS- CoV-2 (COVI D19) Ag panel , rapid IA, upper respi rator y speci men Flu B negati ve Not Available In-Office Order Internal Use Only DO Not Attach Compendium DO Not Attach Compendium, Do Not Delete/merge, [id number] 06/04/2024 15:37:19 06/04/19 25 06/04/2024 influ antonieta virus A + B + SARS- CoV-2 (COVI D19) Ag panel , rapid IA, upper respi rator y speci men Rapid SARS CoV 2 Ag, QL IA, respiratory specimen negati ve Not Available In-Office Order Internal Use Only DO Not Attach Compendium DO Not Attach Compendium, Do Not Delete/merge, [id number] 06/04/2024 15:37:19 06/04/19 25 06/04/2024 rapid strep group A, throa t Strep negati ve Not Available In-Office Order Internal Use Only DO Not Attach Compendium DO Not Attach Compendium, Do Not Delete/merge, [id number] 06/04/2024 15:08:50 09/02/19 25 09/01/2024 MAMMO , scree maribell, digit al, bilat eral No observ ation record ed. [address] [place] [address], [address], 09/02/2024 10:36:22 Result Notes None recorded. Problems Name Problem SNOMED Code Status Onset Date Resolution Date Notes Provider Name and Address Organization Details Recorded Time Body mass index 25-29 - overweight 244765727 Active 024 Anthony Coates MA [facility], [place] - [facility] 4 11:27:13 Problem Notes None recorded. Procedures Surgical History None recorded. Imaging Results Imaging Date Name Status LastModified by Organiz ation Details LastModified Time 09/01/2024 MAMMO, screening, digital, bilateral completed [address], [address], 09/02/2024 10:36:22 Procedure Notes None recorded. Medical Equipment None [...] Address Organization Details Last Updated DateTime 4 11014.2 1 g 27.8 kg/m2 177.8 cm 18 /min 99 % 99 % 91 /min 118 mm[Hg] 72 mm[Hg] Anthony Coates MA [facility] 4 11:29:38 Date Recorded Systolic blood pressure Diastolic blood pressure Provider Name and Address Organization Details Last Updated DateTime 01/15/2024 110 mm[Hg] 80 mm[Hg] EDGAR Sears Attn: Accounting[address] [place], [address], [facility] 01/15/2024 11:58:41 Social History Question Answer Notes LastModified by Organizat ion Details LastModified Time Tobacco Smoking Status Never Smoker Anthony Coates MA null, [facility] 01/15/2024 11:25:02 Do You Have An Advance [...] available 01/15/2024 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 [id number] Information not available 01/15/2024 Do You Use [...] [email or web address] Not available 2023 12:24:30 Mother Malignant neoplasm of ovary tcarterma Not available 2023 12:24:36 [...] Skin Problems N Anemia N Heart Attack (DE) N Anxiety Disorder N Diabetes N Muscle, [...] SNOMED-CT Code Diagnosis ICD10 Code Diagnosis Note [id number] Mazin Burgess MD [place] [address] [address] 01/15/2024 11:13:18 01/15/2024 13:28:33 Adult health examination 820277500 Z00.00 Annual wellness exam complete Cholesterol screening 27 1280324 Z13.220 Fasting lipid panel is due Diabetes m ellitus screening 324903108 Z13.1 Annual A1c screening is due Thyroid di sorder screening 811030540 Z13.29 Routine thyroid labs were ordered Long-term drug therapy 067443539 Z79.899 cmp, cbc and b12, folate labs are due Screening mammography 24 567284 Z12.31 Annual mammogram is ordered Body mass index 25-29 - overweight 416867702 Z68.27 BMI is 27.8 [id number] Mazin Burgess MD [facility] [place] [address] [place] [address] 06/04/2024 14:49:22 06/07/2024 15:16:04 Sore throat 833501881 J02.9 Health Concerns Section Related Observation LastModified by Organization Detai ls LastModified Time None Recorded Concern Status LastModified by Organization Details LastModified Time None Recorded Advance Directives Directive N: Payers Encounter Date Sequence Insurance Name Policy Number Policy Lopez Covered Member ID Lopez Member ID Guarantor Name 01/15/2024 1 [employer] - [employer] BENEFITS - OPEN ACCESS [id number] Silverio Hutchison [id number] OI Jennifer Hutchison 06/04/2024 1 [employer] Silverio Hutchison [id number] OI Jennifer Hutchison Notes Date Note Type Note Provider Name and Address Organization Details Recorded Time 01/15/2024 text/html Patient is here for annual wellness exam. She is due for all regular fasting labs. She is exercising and eating healthy and has lost weight and feels terrific. She has no complaints EDGAR Sears Attn: Accounting,[address] [place], [address], [facility] 01/18/2024 23:32:31 OBGyn Episode No OBEpisode recorded.
--- OUTSIDE RECORDS SUMMARY | 2024-09-16 11:17 | XMS_ITS | Clinical Summary ---
Author Organization [facility] Anonymous You Address [address] [place] [address] Care Team Providers Care Veterinary Meat Inspector Name Role Phone Unavailable Primary Care Provider Unavailabl e Source Comments [facility] Anonymous You,non-owned Affiliates and Associated Physician Practices is amultiple site organization consisting of ambulatory clinics and hospital sitesin [place], [place], [place] and [place]. This disclosure is being madepursuant to the Care Everywhere program and may not contain all information available regarding this patient. Last updated 18.ISH Anonymous You Allergies No known active allergies Medications * Be aware that medications may not be up to date on this document. Alwaysverify current medications with the patient. Multiple Vitamins-Cowles als (MULTIPLE VITAMINS/WOMEN S PO) Active vitamin D3 (CHOLECALCIFER OL) 125 MCG (5000 UT) capsule Take 1 capsule by mouth once daily Active fluticasone propionate (FLONASE) 50 MCG/ACT nasal spray fluticasone propionate 50 mcg/actuation nasal spray,suspension SPRAY 2 SPRAY(S) EVERY DAY BY INTRANASAL ROUTE DIRECTED. Active levonorgestrel (MIRENA) 20 MCG/24HR IUD Active levocetirizine (XYZAL) 5 MG tablet levocetirizine 5 mg tablet TAKE 1 TABLET BY MOUTH EVERY DAY Active Social History Tobacco Use Types Packs/Day Years Used Date Smoking Tobacco: Never Smokeless Tobacco: Never Comments No Sex and Gender Information Value Date Recorded Sex Assigned at Not on file Legal Sex Female 2:11 PM RESPIRATORY THERAPY MANAGER Gender Identity Not on file Sexual Orientation Not on file Last Filed Vital Signs Vital Sign Reading Time Taken Comments Blood Pressure 120/82 04/09/2021 12:10 PM RESPIRATORY THERAPY MANAGER Pulse 91 04/09/2021 12:10 PM RESPIRATORY THERAPY MANAGER Temperature 37.2 C (98.9 F) 04/09/2021 12:10 PM RESPIRATORY THERAPY MANAGER Respiratory Rate 16 04/09/2021 12:10 PM RESPIRATORY THERAPY MANAGER Oxygen Saturation 97% 04/09/2021 12:10 PM RESPIRATORY THERAPY MANAGER Inhaled Oxygen Concentration - - Weight 90.7 kg (200 lb) 04/09/2021 12:10 PM RESPIRATORY THERAPY MANAGER Height 177.8 cm (5' 10 ) 04/09/2021 12:10 PM RESPIRATORY THERAPY MANAGER Body Mass Index 28.7 04/09/2021 12:10 PM RESPIRATORY THERAPY MANAGER Plan of Treatment Health Maintenance Due Date Last Done Comments COLOGUARD (AGES 45-75) - COL ON CA SCREENING 1978 COLON MONITORING 1978 COLONOSCOPY - COLON CA SCREENING 1978 CT COLONOGRAPHY - COLON CA SCREENING 1978 Colorectal Cancer Screening 1978 FIT - COLON CA SCREENING 1978 FLEX SIG - COLON CA SCREENING 1978 LIPID TESTING 1978 MAMMOGRAM 1978 HIV SCREENING 1993 HEPATITIS C SCREENING 09/04/1996 DTAP/TDAP/TD VACCINES (1 - Tdap) 1997 HEPATITIS B VACCINE (1 of 3 - 19+ 3-dose series) 1997 SCREENING FOR DIABETES 04/09/2021 COVID-19 VACCINE (1 - 2023-2 5 season) 2024 DEPRESSION SCREENING 05/12/2024 INFLUENZA VACCINE (Season Ended) 2025 ZOSTER VACCINE (1 of 2) 2028 HIB VACCINE Aged Out No longer eligi ble based on patient's age to complete this topic HPV VACCINE Aged Out No longer eligi ble based on patient's age to complete this topic MENINGOCOCCAL (Group B) VACC INE SHARED DECISION-MAKING Aged Out No longer eligibl e based on patient's age to complete this topic MENINGOCOCCAL GROUPS A/C/Y/W VACCINE Aged Out No longer eligible b ased on patient's age to complete this topic PNEUMOCOCCAL VACCINE Aged Out No long er eligible based on patient's age to complete this topic Insurance [facility]
--- OUTSIDE RECORDS SUMMARY | 2024-09-16 11:17 | XMS_ITS | Data Portability ---
Author Organization [employer], Main Office Address [address] [place] [address] Assessment No assessment recorded. Plan of Treatment Reminders Order Date Submit Date Provider Last Modified By Organization Details Last Modified Time Details Appointments None recorde d. Lab None recorde d. Referral None recorde d. Procedures None recorde d. Surgeries None recorde d. Imaging XR, wrist 023 12/04/19 [facility], [address], [address] [address], [place], [address], 3 08:11:34 Medication Orders None recorde d. Patient TargetsNo targets recorded. Patient InstructionsNo instructions recorded. Reason for Referral None Reported. Results Created Date Observation Date Name Description Value Unit Range Abnormal Flag Note LastModifiedBy Organization Detail LastModifiedTime 04/30/20 21 05/01/2021 REFLE XIVE URINE CULTU RE reflexive urine culture NO CULTU RE INDIC ATED Not Available [address] [address] [place], [address], 05/01/2021 14:36:41 04/30/20 21 05/01/2021 URINA LYSIS , COMPL ETE W/REF CHIARA TO CULTU RE color yellow yellow normal Not Available [employer] [address] [address] [place], [address], 05/01/2021 14:36:41 04/30/20 21 05/01/2021 URINA LYSIS , COMPL ETE W/REF CHIARA TO CULTU RE appearance clear clear normal Not Available [employer] [address] [address] [place], [address], 05/01/2021 14:36:41 04/30/20 21 05/01/2021 URINA LYSIS , COMPL ETE W/REF CHIARA TO CULTU RE specific gravity 1.017 1.001- 1.035 normal Not Available [address], [address], 05/01/2021 14:36:41 04/30/20 21 05/01/2021 URINA LYSIS , COMPL ETE W/REF CHIARA TO CULTU RE pH 5.5 5.0-8. 0 normal Not Available [address], [address], 05/01/2021 14:36:41 04/30/20 21 05/01/2021 URINA LYSIS , COMPL ETE W/REF CHIARA TO CULTU RE glucose negati ve negati ve normal Not Available [address], [address], 05/01/2021 14:36:41 04/30/20 21 05/01/2021 URINA LYSIS , COMPL ETE W/REF CHIARA TO CULTU RE bilirubin negati ve negati ve normal Not Available [address], [address], 05/01/2021 14:36:41 04/30/20 21 05/01/2021 URINA LYSIS , COMPL ETE W/REF CHIARA TO CULTU RE ketones negati ve negati ve normal Not Available [address], [address], 05/01/2021 14:36:41 04/30/20 21 05/01/2021 URINA LYSIS , COMPL ETE W/REF CHIARA TO CULTU RE occult blood negati ve negati ve normal Not Available [address], [address], 05/01/2021 14:36:41 12/20/05/01/2021 URINA LYSIS , COMPL ETE W/REF CHIARA TO CULTU RE protein negati ve negati ve normal Not Available [address], [address], 05/01/2021 14:36:41 04/30/2005/01/2021 URINA LYSIS , COMPL ETE W/REF CHIARA TO CULTU RE nitrite negati ve negati ve normal Not Available [address], [address], 05/01/2021 14:36:41 04/30/2005/01/2021 URINA LYSIS , COMPL ETE W/REF CHIARA TO CULTU RE leukocyte esterase negati ve negati ve normal Not Available [address], [address], 05/01/2021 14:36:41 04/30/20 21 05/01/2021 URINA LYSIS , COMPL ETE W/REF CHIARA TO CULTU RE WBC none seen /hpf < or = 5 normal Not Available [address], [address], 05/01/2021 14:36:41 04/30/20 21 05/01/2021 URINA LYSIS , COMPL ETE W/REF CHIARA TO CULTU RE RBC none seen /hpf < or = 2 normal Not Available [address], [address], 05/01/2021 14:36:41 04/30/20 21 05/01/2021 URINA LYSIS , COMPL ETE W/REF CHIARA TO CULTU RE squamous epithelial cells 0-5 /hpf < or = 5 Not Available [address], [address], 05/01/2021 14:36:41 04/30/20 21 05/01/2021 URINA LYSIS , COMPL ETE W/REF CHIARA TO CULTU RE bacteria none seen /hpf none seen normal Not Available [address], [address], 05/01/2021 14:36:41 04/30/20 21 05/01/2021 URINA LYSIS , COMPL ETE W/REF CHIARA TO CULTU RE hyaline cast none seen /lpf none seen normal Not Available [address], [address], 05/01/2021 14:36:41 04/30/20 21 05/01/2021 CBC (INCL UDES DIFF/ PLT) white blood cell count 5.2 thous and/u L 3.8-10 .8 normal Not Available [address], [address], 05/01/2021 14:36:39 04/30/20 21 05/01/2021 CBC (INCL UDES DIFF/ PLT) red blood cell count 4.41 bonnie on/uL 3.80-5 .10 normal Not Available [address], [address], 05/01/2021 14:36:39 04/30/20 21 05/01/2021 CBC (INCL UDES DIFF/ PLT) hemoglobin 13.3 g/dL 11.7-1 5.5 normal Not Available [address], [address], 05/01/2021 14:36:39 04/30/20 21 05/01/2021 CBC (INCL UDES DIFF/ PLT) hematocrit 40.3 % 35.0-4 5.0 normal Not Available [address], [address], 05/01/2021 14:36:39 04/30/20 21 05/01/2021 CBC (INCL UDES DIFF/ PLT) MCV 91.4 fL 80.0-1 00.0 normal Not Available [address], [address], 05/01/2021 14:36:39 04/30/20 21 05/01/2021 CBC (INCL UDES DIFF/ PLT) MCH 30.2 pg 27.0-3 3.0 normal Not Available [address], [address], 05/01/2021 14:36:39 04/30/20 21 05/01/2021 CBC (INCL UDES DIFF/ PLT) MCHC 33.0 g/dL 32.0-3 6.0 normal Not Available [address], [address], 05/01/2021 14:36:39 04/30/20 21 05/01/2021 CBC (INCL UDES DIFF/ PLT) RDW 11.5 % 11.0-1 5.0 normal Not Available [address], [address], 05/01/2021 14:36:39 04/30/20 21 05/01/2021 CBC (INCL UDES DIFF/ PLT) platelet count 288 thous and/u L 140-40 0 normal Not Available [address], [address], 05/01/2021 14:36:39 04/30/20 21 05/01/2021 CBC (INCL UDES DIFF/ PLT) MPV 9.6 fL 7.5-12 .5 normal Not Available [address], [address], 05/01/2021 14:36:39 04/30/20 21 05/01/2021 CBC (INCL UDES DIFF/ PLT) absolute neutrophils 3167 cells /uL 1500-7 800 normal Not Available [address], [address], 05/01/2021 14:36:39 04/30/20 21 05/01/2021 CBC (INCL UDES DIFF/ PLT) absolute lymphocytes 1555 cells /uL 850-39 00 normal Not Available [address], [address], 05/01/2021 14:36:39 04/30/20 21 05/01/2021 CBC (INCL UDES DIFF/ PLT) absolute monocytes 348 cells /uL 200-95 0 normal Not Available [address], [address], 05/01/2021 14:36:39 04/30/20 21 05/01/2021 CBC (INCL UDES DIFF/ PLT) absolute eosinophils 109 cells /uL 15-500 normal Not Available [address], [address], 05/01/2021 14:36:39 04/30/20 21 05/01/2021 CBC (INCL UDES DIFF/ PLT) absolute basophils 21 cells /uL 0-200 normal Not Available [address], [address], 05/01/2021 14:36:39 04/30/20 21 05/01/2021 CBC (INCL UDES DIFF/ PLT) neutrophils 60.9 % normal Not Available [address], [address], 05/01/2021 14:36:39 04/30/20 21 05/01/2021 CBC (INCL UDES DIFF/ PLT) lymphocytes 29.9 % normal Not Available [address], [address], 05/01/2021 14:36:39 04/30/20 21 05/01/2021 CBC (INCL UDES DIFF/ PLT) monocytes 6.7 % normal Not Available [address] [place], [address], 05/01/2021 14:36:39 04/30/20 21 05/01/2021 CBC (INCL UDES DIFF/ PLT) eosinophils 2.1 % normal Not Available [address], [address], 05/01/2021 14:36:39 04/30/20 21 05/01/2021 CBC (INCL UDES DIFF/ PLT) basophils 0.4 % normal Not Available [address], [address], 05/01/2021 14:36:39 04/30/20 21 05/01/2021 HEMOG LOBIN A1C hemoglobin A1C 5.1 %_of_ total _HGB <5.7 normal Not Available [address], [address], 05/01/2021 14:36:39 04/30/20 21 05/01/2021 COMPR EHENS LOLIS METAB OLIC PANEL glucose 101 mg/dL 65-139 normal Non-f astin g refer ence inter carlita Not Available [address], [address], 05/01/2021 14:36:38 04/30/20 21 05/01/2021 COMPR EHENS LOLIS METAB OLIC PANEL urea nitrogen (BUN) 15 mg/dL 7-25 normal Not Available [address], [address], 05/01/2021 14:36:38 04/30/20 21 05/01/2021 COMPR EHENS LOLIS METAB OLIC PANEL creatinine 0.89 mg/dL 0.50-1 .10 normal Not Available [address], [address], 05/01/2021 14:36:38 04/30/20 21 05/01/2021 COMPR EHENS LOLIS METAB OLIC PANEL eGFR non-afr. hong konger 80 mL/mi n/1.7 3m2 > or = 60 normal Not Available [address], [address], 05/01/2021 14:36:38 04/30/20 21 05/01/2021 COMPR EHENS LOLIS METAB OLIC PANEL eGFR 93 mL/mi n/1.7 3m2 > or = 60 normal Not Available [address], [address], 05/01/2021 14:36:38 04/30/20 21 05/01/2021 COMPR EHENS LOLIS METAB OLIC PANEL BUN/creatini ne ratio not applic able (calc ) 6-22 Not Available [address], [address], 05/01/2021 14:36:38 04/30/20 21 05/01/2021 COMPR EHENS LOLIS METAB OLIC PANEL sodium 138 mmol/ L 135-14 6 normal Not Available [address], [address], 05/01/2021 14:36:38 04/30/20 21 05/01/2021 COMPR EHENS LOLIS METAB OLIC PANEL potassium 4.1 mmol/ L 3.5-5. 3 normal Not Available [address], [address], 05/01/2021 14:36:38 04/30/20 21 05/01/2021 COMPR EHENS LOLIS METAB OLIC PANEL chloride 106 mmol/ L 98-110 normal Not Available [address], [address], 05/01/2021 14:36:38 04/30/20 21 05/01/2021 COMPR EHENS LOLIS METAB OLIC PANEL carbon dioxide 22 mmol/ L 20-32 normal Not Available [address], [address], 05/01/2021 14:36:38 04/30/20 21 05/01/2021 COMPR EHENS LOLIS METAB OLIC PANEL calcium 10.4 mg/dL 8.6-10 .2 high Not Available [address], [address], 05/01/2021 14:36:38 04/30/20 21 05/01/2021 COMPR EHENS LOLIS METAB OLIC PANEL protein, total 6.8 g/dL 6.1-8. 1 normal Not Available [address], [address], 05/01/2021 14:36:38 04/30/20 21 05/01/2021 COMPR EHENS LOLIS METAB OLIC PANEL albumin 4.2 g/dL 3.6-5. 1 normal Not Available [address], [address], 05/01/2021 14:36:38 04/30/20 21 05/01/2021 COMPR EHENS LOLIS METAB OLIC PANEL globulin 2.6 g/dL_ (calc ) 1.9-3. 7 normal Not Available [address], [address], 05/01/2021 14:36:38 04/30/20 21 05/01/2021 COMPR EHENS LOLIS METAB OLIC PANEL albumin/glob ulin ratio 1.6 (calc ) 1.0-2. 5 normal Not Available [address], [address], 05/01/2021 14:36:38 04/30/20 21 05/01/2021 COMPR EHENS LOLIS METAB OLIC PANEL bilirubin, total 0.4 mg/dL 0.2-1. 2 normal Not Available [address], [address], 05/01/2021 14:36:38 04/30/20 21 05/01/2021 COMPR EHENS LOLIS METAB OLIC PANEL alkaline phosphatase 82 U/L 31-125 normal Not Available [facility] [employer] [address] [place], [address], 05/01/2021 14:36:38 04/30/20 21 05/01/2021 COMPR EHENS LOLIS METAB OLIC PANEL AST 22 U/L 10-30 normal Not Available [address], [address], 05/01/2021 14:36:38 04/30/20 21 05/01/2021 COMPR EHENS LOLIS METAB OLIC PANEL ALT 19 U/L 6-29 normal Not Available [address], [address], 05/01/2021 14:36:38 04/30/20 21 05/01/2021 LIPID PANEL WITH RATIO S cholesterol, total 171 mg/dL <200 normal Not Available [address], [address], 05/01/2021 14:36:38 04/30/20 21 05/01/2021 LIPID PANEL WITH RATIO S HDL cholesterol 51 mg/dL > or = 50 normal Not Available [address], [address], 05/01/2021 14:36:38 04/30/20 21 05/01/2021 LIPID PANEL WITH RATIO S triglyceride s 169 mg/dL <150 high Not Available [address], [address], 05/01/2021 14:36:38 04/30/20 21 05/01/2021 LIPID PANEL [...] 2068 (http ://ed ucati on.Qu Lucy josue [employer]. com/f aq/FA Q164) Not Available [facility] [address] [place], [address], 05/01/2021 14:36:38 04/30/20 21 05/01/2021 LIPID PANEL WITH RATIO S chol/HDLC ratio 3.4 (calc ) <5.0 normal Not Available [facility] [address] [address] [place], [address], 05/01/2021 14:36:38 04/30/20 21 05/01/2021 LIPID PANEL WITH RATIO S LDL/HDL ratio 1.8 (calc ) Below avera ge Risk: <2.34 Morrice ge Risk: 2.35- 4.12 Moder ate Risk: 4.13- 5.56 High Risk: >5.57 Not Available [facility] [address] [facility] [place], [address], 05/01/2021 14:36:38 04/30/20 21 05/01/2021 LIPID PANEL WITH RATIO S non HDL cholesterol 120 mg/dL _(johnathan c) <130 normal For patie nts with diabe neyda plus 1 major ASCVD risk facto r, treat ing to a non-H DL-C goal of <100 mg/dL (LDL- C of <70 mg/dL ) is consi lloydd a codey pemike c optio n. Not Available [facility] [address] [place], [address], 05/01/2021 14:36:38 04/30/20 21 05/01/2021 TSH+F REE T4 TSH 0.62 mIU/L normal Refer ence Range > or = 20 Years 0.40- 4.50 Pregn trent Range s First trime ster 0.26- 2.66 Secon d trime ster 0.55- 2.73 Third trime ster 0.43- 2.91 Not Available [address], [address], 05/01/2021 14:36:37 04/30/20 21 05/01/2021 TSH+F REE T4 T4, free 1.0 NG/dL 0.8-1. 8 normal Not Available [address], [address], 05/01/2021 14:36:37 08/10/19 23 08/10/2022 TSH+F REE T4 TSH 0.96 mIU/L normal Refer ence Range > or = 20 Years 0.40- 4.50 Pregn trent Range s First trime ster 0.26- 2.66 Secon d trime ster 0.55- 2.73 Third trime ster 0.43- 2.91 Not Available [address], [address], 08/10/2022 06:12:20 08/10/19 23 08/10/2022 TSH+F REE T4 T4, free 1.2 NG/dL 0.8-1. 8 normal Not Available [address], [address], 08/10/2022 06:12:20 08/10/19 23 08/10/2022 LIPID PANEL WITH RATIO S cholesterol, total 164 mg/dL <200 normal Not Available [address], [address], 08/10/2022 06:12:21 08/10/19 23 08/10/2022 LIPID PANEL WITH RATIO S HDL cholesterol 53 mg/dL > or = 50 normal Not Available [address], [address], 08/10/2022 06:12:21 08/10/19 23 08/10/2022 LIPID PANEL WITH RATIO S triglyceride s 73 mg/dL <150 normal Not Available [facility] [address] [place], [address], 08/10/2022 06:12:21 08/10/1908/10/2022 LIPID PANEL WITH RATIO [...] 2061- 2068 (http ://ed ati on.Qu Lucy Furious. com/f aq/FA Q164) Not Available [employer] [address] [address] [facility] [place], [address], 08/10/2022 06:12:21 08/10/1908/10/2022 LIPID PANEL WITH RATIO S chol/HDLC ratio 3.1 (calc ) <5.0 normal Not Available [address] [place], [address], 08/10/2022 06:12:21 08/10/19 23 08/10/2022 LIPID PANEL WITH RATIO S LDL/HDL ratio 1.8 (calc ) Below avera ge Risk: <2.34 Morrice ge Risk: 2.35- 4.12 Moder ate Risk: 4.13- 5.56 High Risk: >5.57 Not Available [address], [address], 08/10/2022 06:12:21 08/10/19 23 08/10/2022 LIPID PANEL WITH RATIO S non HDL cholesterol 111 mg/dL _(johnathan c) <130 normal For patie nts with diabe neyda plus 1 major ASCVD risk facto r, treat ing to a non-H DL-C goal of <100 mg/dL (LDL- C of <70 mg/dL ) is izzy godwino n. Not Available [address] [address] [place], [address], 08/10/2022 06:12:21 08/10/19 23 08/10/2022 COMPR EHENS LOLIS METAB OLIC PANEL glucose 89 mg/dL 65-99 normal Fasti ng refer ence inter carlita Not Available [facility] [address] [address] [place], [address], 08/10/2022 06:12:22 08/10/19 23 08/10/2022 COMPR EHENS LOLIS METAB OLIC PANEL urea nitrogen (BUN) 15 mg/dL 7-25 normal Not Available [address] [address] [place], [address], 08/10/2022 06:12:22 08/10/19 23 08/10/2022 COMPR EHENS LOLIS METAB OLIC PANEL creatinine 0.88 mg/dL 0.50-0 .99 normal Not Available [address] [address] [place], [address], 08/10/2022 06:12:22 08/10/19 23 08/10/2022 COMPR EHENS LOLIS METAB OLIC PANEL eGFR 84 mL/mi n/1.7 3m2 > or = 60 normal The eGFR is based on the CKD-E PI 2020 equat ion. To calcu late the new eGFR from a previ ous Creat inine or Cysta ivto C resul t, go to https ://roberta chery/jorge weston s/ kdoqi /gfr% 5Fcal culat or Not Available [address] [address] [place], [address], 08/10/2022 06:12:22 08/10/19 23 08/10/2022 COMPR EHENS LOLIS METAB OLIC PANEL BUN/creatini ne ratio NOT APPLIC ABLE (calc ) 6-22 Not Available [address], [address], 08/10/2022 06:12:22 08/10/19 23 08/10/2022 COMPR EHENS LOLIS METAB OLIC PANEL sodium 136 mmol/ L 135-14 6 normal Not Available [address], [address], 08/10/2022 06:12:22 08/10/19 23 08/10/2022 COMPR EHENS LOLIS METAB OLIC PANEL potassium 3.8 mmol/ L 3.5-5. 3 normal Not Available [address], [address], 08/10/2022 06:12:22 08/10/19 23 08/10/2022 COMPR EHENS LOLIS METAB OLIC PANEL chloride 101 mmol/ L 98-110 normal Not Available [address], [address], 08/10/2022 06:12:22 08/10/19 23 08/10/2022 COMPR EHENS LOLIS METAB OLIC PANEL carbon dioxide 29 mmol/ L 20-32 normal Not Available [address], [address], 08/10/2022 06:12:22 08/10/19 23 08/10/2022 COMPR EHENS LOLIS METAB OLIC PANEL calcium 10.2 mg/dL 8.6-10 .2 normal Not Available [address], [address], 08/10/2022 06:12:22 08/10/19 23 08/10/2022 COMPR EHENS LOLIS METAB OLIC PANEL protein, total 7.1 g/dL 6.1-8. 1 normal Not Available [address], [address], 08/10/2022 06:12:22 08/10/19 23 08/10/2022 COMPR EHENS LOLIS METAB OLIC PANEL albumin 4.4 g/dL 3.6-5. 1 normal Not Available [address], [address], 08/10/2022 06:12:22 08/10/19 23 08/10/2022 COMPR EHENS LOLIS METAB OLIC PANEL globulin 2.7 g/dL_ (calc ) 1.9-3. 7 normal Not Available [address], [address], 08/10/2022 06:12:22 08/10/19 23 08/10/2022 COMPR EHENS LOLIS METAB OLIC PANEL albumin/glob ulin ratio 1.6 (calc ) 1.0-2. 5 normal Not Available [address], [address], 08/10/2022 06:12:22 08/10/19 23 08/10/2022 COMPR EHENS LOLIS METAB OLIC PANEL bilirubin, total 0.5 mg/dL 0.2-1. 2 normal Not Available [address], [address], 08/10/2022 06:12:22 08/10/19 23 08/10/2022 COMPR EHENS LOLIS METAB OLIC PANEL alkaline phosphatase 78 U/L 31-125 normal Not Available [address] [address] [place], [address], 08/10/2022 06:12:22 08/10/19 23 08/10/2022 COMPR EHENS LOLIS METAB OLIC PANEL AST 20 U/L 10-30 normal Not Available [address], [address], 08/10/2022 06:12:22 03/31/08/10/2022 COMPR EHENS LOLIS METAB OLIC PANEL ALT 21 U/L 6-29 normal Not Available [address] [place], [address], 08/10/2022 06:12:22 08/10/19 23 08/10/2022 HEMOG LOBIN [...] Care in Diabe neyda(A DA). Not Available [address], [address], 08/10/2022 06:12:22 08/10/1908/10/2022 CBC (INCL UDES DIFF/ PLT) white blood cell count 6.0 thous and/u L 3.8-10 .8 normal Not Available [facility] [address] [address] [place], [address], 08/10/2022 06:12:23 08/10/19 23 08/10/2022 CBC (INCL UDES DIFF/ PLT) red blood cell count 4.57 bonnie on/uL 3.80-5 .10 normal Not Available [facility] [place] [address] [place] [address], [address], 08/10/2022 06:12:23 08/10/19 23 08/10/2022 CBC (INCL UDES DIFF/ PLT) hemoglobin 14.3 g/dL 11.7-1 5.5 normal Not Available [address], [address], 08/10/2022 06:12:23 08/10/1908/10/2022 CBC (INCL UDES DIFF/ PLT) hematocrit 42.6 % 35.0-4 5.0 normal Not Available [address], [address], 08/10/2022 06:12:23 08/10/19 23 08/10/2022 CBC (INCL UDES DIFF/ PLT) MCV 93.2 fL 80.0-1 00.0 normal Not Available [address], [address], 08/10/2022 06:12:23 08/10/19 23 08/10/2022 CBC (INCL UDES DIFF/ PLT) MCH 31.3 pg 27.0-3 3.0 normal Not Available [address], [address], 08/10/2022 06:12:23 08/10/1908/10/2022 CBC (INCL UDES DIFF/ PLT) MCHC 33.6 g/dL 32.0-3 6.0 normal Not Available [address], [address], 08/10/2022 06:12:23 08/10/19 23 08/10/2022 CBC (INCL UDES DIFF/ PLT) RDW 11.6 % 11.0-1 5.0 normal Not Available [address], [address], 08/10/2022 06:12:23 08/10/19 23 08/10/2022 CBC (INCL UDES DIFF/ PLT) platelet count 272 thous and/u L 140-40 0 normal Not Available [address], [address], 08/10/2022 06:12:23 08/10/19 23 08/10/2022 CBC (INCL UDES DIFF/ PLT) MPV 9.0 fL 7.5-12 .5 normal Not Available [address], [address], 08/10/2022 06:12:23 08/10/1908/10/2022 CBC (INCL UDES DIFF/ PLT) absolute neutrophils 4002 cells /uL 1500-7 800 normal Not Available [address], [address], 08/10/2022 06:12:23 08/10/19 23 08/10/2022 CBC (INCL UDES DIFF/ PLT) absolute lymphocytes 1548 cells /uL 850-39 00 normal Not Available [address], [address], 08/10/2022 06:12:23 08/10/19 23 08/10/2022 CBC (INCL UDES DIFF/ PLT) absolute monocytes 372 cells /uL 200-95 0 normal Not Available [address], [address], 08/10/2022 06:12:23 08/10/1908/10/2022 CBC (INCL UDES DIFF/ PLT) absolute eosinophils 48 cells /uL 15-500 normal Not Available [address], [address], 08/10/2022 06:12:23 08/10/1908/10/2022 CBC (INCL UDES DIFF/ PLT) absolute basophils 30 cells /uL 0-200 normal Not Available [address], [address], 08/10/2022 06:12:23 08/10/19 23 08/10/2022 CBC (INCL UDES DIFF/ PLT) neutrophils 66.7 % normal Not Available [facility] [address], [address], 08/10/2022 06:12:23 08/10/19 23 08/10/2022 CBC (INCL UDES DIFF/ PLT) lymphocytes 25.8 % normal Not Available [facility] [address], [address], 08/10/2022 06:12:23 08/10/19 23 08/10/2022 CBC (INCL UDES DIFF/ PLT) monocytes 6.2 % normal Not Available [facility] [address], [address], 08/10/2022 06:12:23 08/10/19 23 08/10/2022 CBC (INCL UDES DIFF/ PLT) eosinophils 0.8 % normal Not Available [facility] [address], [address], 08/10/2022 06:12:23 08/10/19 23 08/10/2022 CBC (INCL UDES DIFF/ PLT) basophils 0.5 % normal Not Available [facility] [address], [address], 08/10/2022 06:12:23 08/10/19 23 08/10/2022 URINA LYSIS , COMPL ETE W/REF CHIARA TO CULTU RE color YELLOW yellow normal Not Available [facility] [address], [address], 08/10/2022 06:12:24 08/10/19 23 08/10/2022 URINA LYSIS , COMPL ETE W/REF CHIARA TO CULTU RE appearance CLOUDY clear abnormal Not Available [facility] [address], [address], 08/10/2022 06:12:24 08/10/19 23 08/10/2022 URINA LYSIS , COMPL ETE W/REF CHIARA TO CULTU RE specific gravity 1.020 1.001- 1.035 normal Not Available [address], [address], 08/10/2022 06:12:24 08/10/19 23 08/10/2022 URINA LYSIS , COMPL ETE W/REF CHIARA TO CULTU RE pH 6.5 5.0-8. 0 normal Not Available [address], [address], 08/10/2022 06:12:24 08/10/19 23 08/10/2022 URINA LYSIS , COMPL ETE W/REF CHIARA TO CULTU RE glucose NEGATI VE negati ve normal Not Available [address], [address], 08/10/2022 06:12:24 08/10/19 23 08/10/2022 URINA LYSIS , COMPL ETE W/REF CHIARA TO CULTU RE bilirubin NEGATI VE negati ve normal Not Available [address], [address], 08/10/2022 06:12:24 08/10/19 23 08/10/2022 URINA LYSIS , COMPL ETE W/REF CHIARA TO CULTU RE ketones NEGATI VE negati ve normal Not Available [address], [address], 08/10/2022 06:12:24 08/10/19 23 08/10/2022 URINA LYSIS , COMPL ETE W/REF CHIARA TO CULTU RE occult blood NEGATI VE negati ve normal Not Available [address], [address], 08/10/2022 06:12:24 08/10/19 23 08/10/2022 URINA LYSIS , COMPL ETE W/REF CHIARA TO CULTU RE protein NEGATI VE negati ve normal Not Available [address], [address], 08/10/2022 06:12:24 08/10/19 23 08/10/2022 URINA LYSIS , COMPL ETE W/REF CHIARA TO CULTU RE nitrite NEGATI VE negati ve normal Not Available [address], [address], 08/10/2022 06:12:24 08/10/19 23 08/10/2022 URINA LYSIS , COMPL ETE W/REF CHIARA TO CULTU RE leukocyte esterase NEGATI VE negati ve normal Not Available [address], [address], 08/10/2022 06:12:24 08/10/19 23 08/10/2022 URINA LYSIS , COMPL ETE W/REF CHIARA TO CULTU RE WBC 0-5 /hpf < or = 5 normal Not Available [address], [address], 08/10/2022 06:12:24 08/10/19 23 08/10/2022 URINA LYSIS , COMPL ETE W/REF CHIARA TO CULTU RE RBC NONE SEEN /hpf < or = 2 normal Not Available [address], [address], 08/10/2022 06:12:24 08/10/19 23 08/10/2022 URINA LYSIS , COMPL ETE W/REF CHIARA TO CULTU RE squamous epithelial cells 10-20 /hpf < or = 5 abnormal Not Available [address], [address], 08/10/2022 06:12:24 08/10/19 23 08/10/2022 URINA LYSIS , COMPL ETE W/REF CHIARA TO CULTU RE bacteria MODERA TE /hpf none seen abnormal Not Available [address], [address], 08/10/2022 06:12:24 08/10/19 23 08/10/2022 URINA LYSIS , COMPL ETE W/REF CHIARA TO CULTU RE hyaline cast 0-5 /lpf none seen abnormal Not Available [address], [address], 08/10/2022 06:12:24 08/10/19 23 08/10/2022 URINA LYSIS , COMPL ETE W/REF CHIARA TO CULTU RE note This urine was joseph zed for the prese nce of WBC, RBC, bacte opal, casts , and other forme d eleme nts. Only those eleme nts seen were repor [place]. Not Available [address], [address], 08/10/2022 06:12:24 08/10/19 23 08/10/2022 REFLE XIVE URINE CULTU RE reflexive urine culture NO CULTU RE INDIC ATED Not Available [address], [address], 08/10/2022 06:12:24 01/11/20 21 01/05/2021 MAMMO , scree maribell, digit al, bilat eral No observ ation record ed. [id number], [place], [address], 07/10/2022 16:58:19 04/02/20 22 01/08/2022 MAMMO , scree maribell, digit al, bilat eral No observ ation record ed. [id number], [place], [address], 07/10/2022 16:58:19 12/05/19 23 12/03/2022 XR, wrist No observ ation record ed. [email or web address] [facility] [address], [place], [address], 12/04/2022 15:53:10 12/20/19 23 12/17/2022 MRI, wrist , w/o contr ast No observ ation record ed. [address] [facility] [address], [place], [address], 12/20/2022 11:12:43 12/20/19 23 12/17/2022 MRI, wrist , w/o contr ast No observ ation record ed. [address] [facility] [address], [place], [address], 12/20/2022 11:12:13 Result Notes None recorded. Problems Name Problem SNOMED Code Status Onset Date Resolution Date Notes Provider Name and Address Organization Details Recorded Time Bacterial conjunctiviti s 308022630 Active Not Available [facility] 3 16:57:07 Acute sinusitis 75565620 Active Not Available [facility] 3 16:57:07 Body mass index 25-29 - overweight 037081525 Active Not Available [facility] 3 16:57:07 Lazy eye 499084541 Active Not Available [facility] 3 16:57:07 Acute otitis media 9803575 Active Not Available [facility] 3 16:57:07 Seasonal allergic rhinitis 741207980 Active Not Available [facility] 3 16:57:07 Change in skin lesion 797373952 Active Not Available [facility] 3 16:57:07 Cough 86714819 Active Not Available [facility] 3 16:57:07 Hoarse 10688956 Active 2021 Not Available [facility] 3 16:57:07 Upper respiratory infection 64381036 Active Not Available [facility] 3 16:57:07 Blepharospasm 07253099 Active Not Available [facility] 3 16:57:07 Allergic rhinitis 30461191 Active Not Available [facility] 3 16:57:07 Varicose veins of lower extremity 28570931 Active 2022 Not Available [facility] 3 16:57:07 Congestion of nasal sinus 46313411 Active 2021 Not Available [facility] 3 16:57:07 Skin lesion 97599155 Active Not Available [facility] 3 16:57:08 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 Procedures Surgical History None recorded. Imaging Results Imaging Date Name Status LastModified by Organiz ation Details LastModified Time 01/05/2021 MAMMO, screening, digital, bilateral completed [id number] [place] [address], [address], 07/10/2022 16:58:19 01/08/2022 MAMMO, screening, digital, bilateral completed [id number] [address] [facility], [place], [address], 07/10/2022 16:58:19 12/03/2022 XR, wrist completed [email or web address] [address], [place], [address], 12/04/2022 15:53:10 12/17/2022 MRI, wrist, w/o contrast completed [address] [place] [address], [address], 12/20/2022 11:12:43 12/17/2022 MRI, wrist, w/o contrast completed [address] [place] [address], [address], 12/20/2022 11:12:13 Procedure Notes None recorded. Medical [...] % 98 % 101 /min 97.2 [degF] 113316. 1 g 110 mm[Hg] 70 mm[Hg] Not Available [facility] 3 16:56:25 Date Recorded Body mass index (BMI) Body height Oxygen saturation Oxygen saturation in Arterial blood by Pulse oximetry Heart rate Body temperature Body weight Systolic blood pressure Diastolic blood pressure Provider Name and Address Organization Details Last Updated DateTime 3 33.1 kg/m2 175.26 cm 99 % 99 % 101 /min 98.1 [degF] 759331. 69 g 122 mm[Hg] 72 mm[Hg] Not Available [facility] 3 16:56:25 Date Recorded Body height Provider Name an d Address Organization Details Last Updated DateTime 07/13/2020 177.17 cm Not Available [facility] 3 16:56:25 Date Recorded Body height Provider Name an d Address Organization Details Last Updated DateTime 05/31/2021 177.17 cm Not Available [facility] 3 16:56:25 Date Recorded Body height Body mass index (BMI) Body weight Body temperature Heart rate Oxygen saturation Oxygen saturation in Arterial blood by Pulse oximetry Systolic blood pressure Diastolic blood pressure Provider Name and Address Organization Details Last Updated DateTime 3 175.26 cm 32.5 kg/m2 12465.3 2 g 97.6 [degF] 74 /min 97 % 97 % 118 mm[Hg] 80 mm[Hg] Samantha Gamboa RN [place] [facility] [employer] [facility] 3 15:58:07 Social History Question Answer Notes LastModified by Organizat ion Details LastModified Time Tobacco Smoking Status Never Smoker Not Available [facility] 07/10/2022 16:55:52 What Is Your Level Of Alcohol Consumption? Occasional [id number] Information not available 07/10/2022 What Is Your Level Of Caffeine Consumption? Moderate [id number].[id number] 6525 Information not available 07/10/2022 How Much Tobacco Do You Chew? None MIGRATION.[id number] Information not available 07/10/2022 In The 14 Days Before Symptom Onset, Have You Had Close Contact With A Laboratory-confir med COVID-19 While That Case Was Ill? No [id number].[id number] 7364 Information not available 07/10/2022 In The 14 Days Before Symptom Onset, Have You Had Close Contact With A Person Who Is Under Investigation For COVID-19 While That Person Was Ill? No MIGRATION.[id number] 6657 Information not available 07/10/2022 What Type Of Diet Are You Following? REGULAR MIGRATION.869432 5201 Information not available 07/10/2022 Which Illicit Or Recreational Drugs Have You Used? None [id number].[id number] 7219 Information not available 07/10/2022 Do You Or Have You Ever Used E-cigarettes Or Vape? 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 Yes MIGRATION.838012 1724 Information not available 07/10/2022 What Was The Date Of Your Most Recent Tobacco Screening? 07/13/2020 MIGRATION.[id number] 3108 Information not available 07/10/2022 Do You Or Have You Ever Used Smokeless Tobacco? Never Used Smokeless Tobacco MIGRATION.867215 9930 Information not available 07/10/2022 How Much Tobacco Do You Smoke? No MIGRATION.688506 8666 Information not available 07/10/2022 How Many Years Have You Smoked Tobacco? 0 MIGRATION.296036 6332 Information not available 07/10/2022 Have You Recently Traveled Abroad? No MIGRATION.602210 3623 Information not available 07/10/2022 Sex: Unknown Functional Status Question Answer Note LastModified by Organizat ion Details LastModified Time What is your exercise level? Moderate [id number] Information not available 07/10/2022 Mental Status None recorded. Family History Relationship Description Onset Age of this Age Resolved Age Notes LastModified by Organization Details LastModified Time Father Malignant tumor of pancreas 54 [id number] Not available 07/10/2022 16:55:56 Paternal Grandmother Malignant tumor of breast MIGRATION.238 [id number] Not available 07/10/2022 16:55:56 Paternal Aunt Malignant tumor of pancreas MIGRATION.318 [id number] Not available 07/10/2022 16:55:56 Maternal Grandmother Myocardial infarction 59 MIGRATION.193 [id number] Not available 07/10/2022 16:55:56 Medical History Condition Response NERVE DISEASE N BLINDNESS N RHEUMATIC FEVER N KIDNEY STONES N BLADDER PROBLEMS N OTHER # 1 N POLIO N LUNG DISEASE/DISORDER N COPD N RADIATION / CHEMOTHERAPY N Other # 2 N BLOOD DISEASES N SURGERY N EAR OR HEARING PROBLEMS N MUMPS N DEPRESSION (INCLUDING POST ) N BOWEL PROBLEMS N STROKE/TIA N ULCERS N BENIGN PROSTATIC HYPERPLASIA N MEASLES N MYOCARDIAL INFARCTION N OBESITY N GERD/NAUSEA N ANEURYSM N URINARY/BLADDER/KIDNEY PROBLEMS N CORONARY ARTERY DISEASE (CAD) N INPATIENT PSYCH CARE N ADDICTION CONCERNS N Impotence N ENDOMETRIOSIS N USE OF BLOOD THINNERS N SKIN [...] APNEA N CHICKENPOX N INFECTIOUS DISEASE N PROSTATE N HEART ARRHYTHMIA N INSOMNIA N HIGH CHOLESTEROL / HYPERLIPIDEMIA N HYPERTHYROIDISM N EYE PROBLEMS N NEUROLOGICAL PROBLEMS N EDEMA N CHRONIC PAIN SYNDROME N HYPOTHYROIDISM N CONSTIPATION N CAROTID BLOCKAGE N BACK / NECK PROBLEMS N HAVE YOU BEEN HOSPITALIZED OR SEEN IN [facility] IN THE PAST YEAR ? N ATHEROSCLEROSIS [...] Brain Problems N HERPES N DEMENTIA N SEIZURES/EPILEPSY N HEADACHES/MIGRAINES Y VASCULAR DISEASE N PACEMAKER N Blood Disorder N DIZZINESS N KIDNEY DISEASE N HEART DISEASE/HEART PROBLEMS N MULTIPLE SCLEROSIS N CARDIAC ARRHYTHMIA N CANCER: SPECIFY N ANESTHESIA COMPLICATIONS N Gall Stones N ATRIAL FIBRILLATION N PULMONARY EMBOLISM N AUTOIMMUNE DISEASE N [...] SNOMED-CT Code Diagnosis ICD10 Code Diagnosis Note [id number] EDGAR Sears [facility] [address] [place] [address] 07/13/2020 00:00:00 08/03/2020 23:42:57 [id number] EDGAR Sears [facility] [address] [place] [address] 02/06/2021 00:00:00 02/06/2021 20:00:05 [id number] EDGAR Sears [facility] [address] [place] [address] 05/31/2021 00:00:00 06/11/2021 00:11:03 [id number] EDGAR Sears [facility] [address] [place] [address] 07/03/2022 00:00:00 07/06/2022 22:25:01 [id number] EDGAR Sears [facility] [address] [place] [address] 12/03/2022 15:48:46 12/03/2022 16:32:56 Injury of wrist 743815236 S69.92XA check xray of wrist to evaluate [...] Lopez Member ID Guarantor Name 12/03/2022 1 [employer] - OPEN ACCESS [id number] Silverio Hutchison [id number] BRIAN Hutchison Notes Date Note Type Note [...] otc, decongestants or cold medicine Not Available [facility] 08/03/2020 23:42:57 02/06/2021 text/html Generic HPI TemplateReported bypatient.Notes:Pt is here today for her wellness exam, doing fine, no complaints Not Available [facility] 02/06/2021 20:00:05 05/31/2021 text/html Sinusitis/Allerg yRepo rted [...] DM; no HIV; no immunodeficiency Not Available [facility] 06/11/2021 00:11:03 12/03/2022 text/html Generic HPI TemplateReported bypatient.Location:le ft wrist Quality:soreness, sharp pain, aching Context:old fall a few years ago is when it started. Aggravating factors:movement, weight bearing EDGAR Sears [address] [place] [address], [address], [address], [place] [facility] 12/06/2022 10:39:44 OBGyn Episode No OBEpisode recorded.
--- OUTSIDE RECORDS SUMMARY | 2024-09-16 11:18 | XMS_ITS | Clinical Summary ---
Author Organization [facility] Address [facility] [place] [address] Care Team Providers Care Mobile Practice Lead Name Role Phone Keely Aquino Primary Care Provider [phone] Allergies No known active allergies Medications levonorgestrel [...] DESCRIPTION CERVICAL/END OCERVICAL 12/07/2021 7:16 AM CDT [facility] HPV DNA HIGH RISK NEGATIVE NEGATIVE 12/07/2021 3:10 PM CDT [facility] Comment:SEE CYTOLOGY REPORT 12/05/2021 12:0 0 PM CDT us Keely HERNÁNDEZ PATHOLOGY/CYTOLOGY ORDERABLE S Final Result [facility] [address] [place] [address], * Cytopath Cerv/Vag Thin Layer (12/05/2021 6:54 AM CDT) THIN PREP PAP [facility] [address] [place] [address] Department of Pathology Pathology Report CERVICAL/VAGINAL PAP SMEAR REPORT Name: JENNIFER HUTCHISON Age: 5 1980 (Age: 41) Location: [facility] Sex: F Collected Date: 12/05/2021 [facility] #: [id number] Date Received: 12/07/2021 Date Reported: 12/11/2021 Provider: [...] is not effective in detecting cervical adenocarcinoma. [facility] 12/05/2021 6:54 AM CDT 12/07/2021 6:54 AM CDT Comment:CERVICAL/ENDOCERVICA L Keely HERNÁNDEZ PATHOLOGY/CYTOLOGY ORDERABLE S Final Result [facility] [address] [place] [address], from Last 3 Months or Most Recently Relevant to Health Maintenance Insurance [email or web address] Care Teams Mobile Practice Lead Relationship Specialty [place] [address] [place] [address] PCP - General PHYSICIAN PLY CUTTER 09/29/19
== END 2024-09-16 11:06 | disposition home or self-care (01) ==
PROVIDERS: PCP Physician Assistant; Visit Provider Physician Assistant
DX: R92.8 Other abnormal and inconclusive findings on diagnostic imaging of breast (principal)
CPT/HCPCS: 76642; 77062; 77066; G0279

== ENCOUNTER 2024-10-19 10:26 | Outpatient (CLI) | payer OTHER, SELFPAY ==
--- NOTE | ~2024-10-19 | MR_ITS ---
MR breast BI wo/w con 10/20/2024 07:35 CDT INDICATION: Suspicious right breast mass on prior examination. TECHNIQUE: MRI of the breasts perform using standard protocol pre-and post IV contrast with the follo wing sequences: Axial T2 STIR, axial T1, axial vibrant T1 with fat suppression precontrast and multip hasic postcontrast. 18 cc MultiHance administered intravenously. COMPARISON: Comparison to multiple prior studies sequentially, with oldest reviewed study dated 01/05. FINDINGS: Dense: The breasts are composed of heterogeneous fibroglandular content. Right breast: There are no abnormalities on the precontrast sequences. There is mild background paren chymal enhancement. No enhancing lesions following contrast administration. No areas of enhancement meeting threshold criteria on CAD analysis. No evidence of signal abnormalities in the axillary or internal mammary node distributions. LEFT BREAST: No signal abnormalities on precontrast sequences. There is mild-moderate background par enchymal enhancement. No enhancing lesions following contrast administration. No areas of enhancem ent meeting threshold criteria on CAD analysis. There are multiple left breast cysts. No evidence of signal abnormalities in the axillary or internal mammary node distributions. IMPRESSION: 1: Right breast: Negative. No evidence of malignancy. The previously identified mass in the right breast at 10:00, 2 cm from the nipple does not abnormally enhance, likely benign. Six-month follow-up right breast ultrasound recommended. BI-RADS Category 3. 2: Left breast: Negative. No evidence of malignancy. BI-RADS category 1. Recommend annual mammogr aphy follow-up. Follow-up MRI may be useful for supplementing mammographic evaluation as clinically indicated. Reviewed, dictated and finalized at location B. IMPRESSION: 1: Right breast: Negative. No evidence of malignancy. The previously identif ied mass in the right breast at 10:00, 2 cm from the nipple does not abnormally enhance, likely benign. Six-month follow-up right breast ultrasound recommende d. BI-RADS Category 3. 2: Left breast: Negative. No evidence of malignancy. BI-RADS category 1. Re commend annual mammography follow-up. Follow-up MRI may be useful for supplementing mammographic evaluation as clinic ally indicated.
--- OUTSIDE RECORDS SUMMARY | 2024-10-19 11:37 | XMS_ITS | Clinical Summary ---
Author Organization [facility] [place] Address [address] [place] [address] Phone Care Team Providers Care Breaker Machine Tender Name Role Phone Chelsea Aquino Primary Care Provider [phone] Allergies No known active allergies Medications Levonorgestrel (MIRENA) 20 mcg/24 hr Intrauterine IUD by Intrauterine route. Active Active Problems Patient Care Coordination No te Formatting of this note migh t be different from the original. 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 Gender Identity Not on file Sexual Orientation Not on file Last Filed Vital Signs Vital Sign Reading Time Taken Comments Blood Pressure 98/67 04/22/2017 3:19 PM CLINICAL ADMINISTRATOR Pulse 84 03/17/2017 10:13 AM CLINICAL ADMINISTRATOR Temperature 36.9 C (98.4 F) 03/17/2017 10:13 AM CLINICAL ADMINISTRATOR Respiratory Rate 16 03/17/2017 10:13 AM CLINICAL ADMINISTRATOR Oxygen Saturation - - Inhaled Oxygen Concentration - - Weight 89.8 kg (198 lb) 05/30/2017 1:40 PM CLINICAL ADMINISTRATOR Height 180.3 cm (5' 11) 04/22/2017 3:19 PM CLINICAL ADMINISTRATOR Body Mass Index 27.62 04/22/2017 3:19 PM CLINICAL ADMINISTRATOR Plan of Treatment Health Maintenance Due Date [...] is now made to previous sonograms from [facility]. No comparison mammograms are identified. Therefore the current study will need to serve as a baseline exam. Breast parenchyma is heterogeneously dense. No dominant masses, suspicious calcifications or areas of asymmetry or distortion are identified. IMPRESSION: Negative baseline screening mammogram. Recommend routine follow-up. OVERALL ASSESSMENT: BI-RADS category 1 - Negative Dictated from: [facility] Impressions 12/01/2016 8:23 PM CDT IMPRESSION: No prior films are currently available for comparison. The prior films will be requested and once received an addendum will be made. Overall Assessment: BI-RADS Category 0 - Incomplete: Needs comparison to prior images. Dictation Location: [facility] Narrative 12/01/2016 8:23 PM CDT [...] Needs comparison to prior images. Dictation Location: [facility] us Elidia Jara MD MAMMO ORDERABLES Edited Result - Final from Last 3 Months or Most Recently Relevant to Health Maintenance Insurance [employer] [facility] OPEN ACCESS Care Teams Breaker Machine Tender Relationship Specialty Start Date End Date Chelsea Aquino PA PCP - General 10/18/08
--- OUTSIDE RECORDS SUMMARY | 2024-10-19 11:38 | XMS_ITS | Data Portability ---
Author Organization [facility] Ovi Conner Address [address] [place] [address] Care Team Providers Care Systems Consultant Name Role Phone FREDO FARIAS Primary Care Provider Unavailab le Assessment No assessment recorded. Plan of Treatment Reminders Order Date Submit Date Provider Last Modified By Organization Details Last Modified Time Details Appointments None recorded. Lab rapid strep group A, throat 2024 025 [email or web address] In-Office Order, Internal Use Only DO Not Attach Compendium DO Not Attach Compendium, Do Not Delete/merge, [id number] 5 17:54:25 influenza virus A + B + SARS-CoV-2 (COVID19) Ag panel, rapid IA, upper respirator y specimen 2024 025 [email or web address] In-Office Order, Internal Use Only DO Not Attach Compendium DO Not Attach Compendium, Do Not Delete/merge, [id number] 5 17:54:25 TSH + free T4, serum 2023 024 [employer] [facility], [address], [place], [address], 5 10:22:58 lipid panel, serum 2023 024 [employer] [facility], [address], [address], [place], [address], 5 10:22:41 CBC w/ auto diff 2023 024 [employer] [facility], [address], [place], [address], 5 10:23:09 vitamin B12 + folate, serum or blood 2023 024 [facility], [address], [place], [address], 5 10:23:19 CMP, serum or plasma 2023 024 [facility], [address], [place], [address], 5 10:23:27 HbA1c (hemoglobi n A1c), blood 2023 024 [facility], [address], [place], [address], 5 10:22:50 Referral None recorded. Procedures None recorded. Surgeries None recorded. Imaging MAMMO, screening, digital, bilateral 2023 024 [facility] (Mammography) , [address], [place], [address], 5 10:18:58 Medication Orders None recorded. Patient [...] DO Not Attach Compendium, Do Not Delete/merge, [id number] 06/04/2024 15:37:19 06/04/19 25 06/04/2024 influ antonieta virus A + B + SARS- CoV-2 (COVI D19) Ag panel , rapid IA, upper respi rator y speci men Flu B negati ve Not Available In-Office Order Internal Use Only DO Not Attach Compendium DO Not Attach Compendium, Do Not Delete/merge, [id number] 06/04/2024 15:37:19 06/04/19 25 06/04/2024 influ antonieta virus A + B + SARS- CoV-2 (COVI D19) Ag panel , rapid IA, upper respi rator y speci men Rapid SARS CoV 2 Ag, QL IA, respiratory specimen negati ve Not Available In-Office Order Internal Use Only DO Not Attach Compendium DO Not Attach Compendium, Do Not Delete/merge, [id number] 06/04/2024 15:37:19 06/04/19 25 06/04/2024 rapid strep group A, throa t Strep negati ve Not Available In-Office Order Internal Use Only DO Not Attach Compendium DO Not Attach Compendium, Do Not Delete/merge, [id number] 06/04/2024 15:08:50 09/02/19 25 09/01/2024 MAMMO , scree maribell, digit al, bilat eral No observ ation record ed. [facility] [address], [place], [address], 09/02/2024 10:36:22 09/17/1909/16/2024 MAMMO , diagn ostic , digit al, bilat eral No observ ation record ed. [facility] (Mammography) [address], [place], [address], 09/17/2024 11:09:06 Result Notes None recorded. Problems Name Problem SNOMED Code Status Onset Date Resolution Date Notes Provider Name and Address Organization Details Recorded Time Body mass index 25-29 - overweight 393638986 Active 024 Anthony Coates MA [facility] [place] - [facility] 4 11:27:13 Problem Notes None recorded. Medical [...] 2 SPRAYS INTRANASA LLY EVERY DAY DIRECTED. 2024 active Not Available Not Available Not Avai lable levocetiriz ine 5 mg tablet TAKE 1 TABLET BY MOUTH EVERY DAY active Not Available Not Available No t Available Vitals Date Recorded Systolic blood pressure Diastolic blood pressure Provider Name and Address Organization Details Last Updated DateTime 01/15/2024 110 mm[Hg] 80 mm[Hg] EDGAR Sears Attn: Accounting,[address] [place], [address], [facility] 01/15/2024 11:58:41 Date Recorded Body weight Body mass index (BMI) Body height Respiratory rate Oxygen saturation Oxygen saturation in Arterial blood by Pulse oximetry Heart rate Systolic blood pressure Diastolic blood pressure Provider Name and Address Organization Details Last Updated DateTime 36350.2 1 g 27.8 kg/m2 177.8 cm 18 /min 99 % 99 % 91 /min 118 mm[Hg] 72 mm[Hg] Anthony Coates MA [facility] 11:29:38 Social History Question Answer Notes LastModified by Organizat ion Details LastModified Time Tobacco Smoking Status Never Smoker Anthony Coates MA null, [facility] 01/15/2024 11:25:02 Do You Have An Advance Directive? No Information not available 01/15/2024 Are You Blind [...] No Information not available 01/15/2024 Are You Deaf Or Do You Have Serious Difficulty Hearing? No Information not available 01/15/2024 What Type Of Diet Are You Following? REGULAR Information not available 01/15/2024 Are There Any [...] Yes Information not available 01/15/2024 Do You Use Sunscreen Routinely? Yes Information not available 01/15/2024 Has Tobacco Cessation Counseling Been Provided? No Information not available 01/15/2024 Sex: Female Functional Status Question Answer Note LastModified by Organizat ion Details LastModified Time Do you use any illicit or recreational drugs? No Information not available 01/15/2024 Do you or have you ever used any other forms of tobacco or nicotine? No Information not available 01/15/2024 What is your level of alcohol consumption? Occasional Information not available 01/15/2024 Are you currently employed? Yes Information not available 01/15/2024 Are you able to care for yourself? 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 Occasional Information not available 01/15/2024 Mental Status Question Answer Note LastModified by Organization D etails LastModified Time Do you feel stressed (tense, restless, nervous, or anxious, or unable to sleep at night)? [id number] Information not available 01/15/2024 Family History Relationship Description Onset Age of [...] Skin Problems N Anemia N Heart Attack (MD) N Anxiety Disorder N Diabetes N Muscle, [...] SNOMED-CT Code Diagnosis ICD10 Code Diagnosis Note [id number] Mazin Burgess [place] [facility] [place] [address] [place] [id number] 01/15/2024 11:13:18 01/15/2024 13:28:33 Adult health examination 696303538 Z00.00 Annual wellness exam complete Cholesterol screening 27 1559471 Z13.220 Fasting lipid panel is due Diabetes m ellitus screening 035587518 Z13.1 Annual A1c screening is due Thyroid di sorder screening 989150249 Z13.29 Routine thyroid labs were ordered Long-term drug therapy 663937797 Z79.899 cmp, cbc and b12, folate labs are due Screening mammography 24 838656 Z12.31 Annual mammogram is ordered Body mass index 25-29 - overweight 664375325 Z68.27 BMI is 27.8 [id number] Mazin Burgess MD [facility] [address] [place] [address] 06/04/2024 14:49:22 06/07/2024 15:16:04 Sore throat 084442714 J02.9 Health Concerns Section Related Observation LastModified by Organization Detai ls LastModified Time None Recorded Concern Status LastModified by Organization Details LastModified Time None Recorded Advance Directives Directive N: Payers Encounter Date Sequence Insurance Name Policy Number Policy Lopez Covered Member ID Lopez Member ID Guarantor Name 01/15/2024 1 [employer] - ALLIED BENEFITS - OPEN ACCESS [id number] Silverio Hutchison [id number] OI Jennifer Hutchison 06/04/2024 1 [employer] Silverio Hutchison [id number] OI Jennifer Hutchison Notes Date Note Type Note Provider Name and Address Organization Details Recorded Time 01/15/2024 text/html Patient is here for annual wellness exam. She is due for all regular fasting labs. She is exercising and eating healthy and has lost weight and feels terrific. She has no complaints EDGAR Sears Attn: Accounting,[address] [place], [address], [facility] - [facility] 01/18/2024 23:32:31 OBGyn Episode No OBEpisode recorded.
--- OUTSIDE RECORDS SUMMARY | 2024-10-19 11:38 | XMS_ITS | Clinical Summary ---
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
--- OUTSIDE RECORDS SUMMARY | 2024-10-19 11:38 | XMS_ITS | Clinical Summary ---
Author Organization [facility] Address [address] [place] [address] Care Team Providers Care Porcelain Enameling Supervisor Name Role Phone Unavailable Primary Care Provider Unavailabl e Source Comments [facility],non-owned Affiliates and Associated Physician Practices is amultiple site organization consisting of ambulatory clinics and hospital sitesin [place], [place], [place] and [place]. This disclosure is being madepursuant to the Care Everywhere program and may not contain all information available regarding this patient. Last updated 18.[employer] [facility] Allergies No known active allergies Medications * Be aware that medications may not be up to date on this document. Alwaysverify current medications with the patient. 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 Gender Identity Not on file Sexual Orientation Not on file Last Filed Vital Signs Vital Sign Reading Time Taken Comments Blood Pressure 120/82 04/09/2021 12:10 PM PHOTOGRAPHER Pulse 91 04/09/2021 12:10 PM PHOTOGRAPHER Temperature 37.2 C (98.9 F) 04/09/2021 12:10 PM PHOTOGRAPHER Respiratory Rate 16 04/09/2021 12:10 PM PHOTOGRAPHER Oxygen Saturation 97% 04/09/2021 12:10 PM PHOTOGRAPHER Inhaled Oxygen Concentration - - Weight 90.7 kg (200 lb) 04/09/2021 12:10 PM PHOTOGRAPHER Height 177.8 cm (5' 10) 04/09/2021 12:10 PM PHOTOGRAPHER Body Mass Index 28.7 04/09/2021 12:10 PM PHOTOGRAPHER Plan of Treatment Health Maintenance Due Date [...] patient's age to complete this topic Insurance Alphion
--- OUTSIDE RECORDS SUMMARY | 2024-10-19 11:38 | XMS_ITS | Data Portability ---
Author Organization [facility], Main Office Address [address] [place] [address] Assessment No assessment recorded. Plan of Treatment Reminders Order Date Submit Date Provider Last Modified By Organization Details Last Modified Time Details Appointments None recorde d. Lab None recorde d. Referral None recorde d. Procedures None recorde d. Surgeries None recorde d. Imaging XR, wrist 023 12/04/19 [facility], [address], [address] [address], [place], [address], 3 08:11:34 Medication Orders None recorde d. Patient TargetsNo targets recorded. Patient InstructionsNo instructions recorded. Reason for Referral None Reported. Results Created Date Observation Date Name Description Value Unit Range Abnormal Flag Note LastModifiedBy Organization Detail LastModifiedTime 04/30/20 21 05/01/2021 REFLE XIVE URINE CULTU RE reflexive urine culture NO CULTU RE INDIC ATED Not Available [address] [address] [place], [address], 05/01/2021 14:36:41 04/30/20 21 05/01/2021 URINA LYSIS , COMPL ETE W/REF CHIARA TO CULTU RE color yellow yellow normal Not Available [employer] [address] [address] [place], [address], 05/01/2021 14:36:41 04/30/20 21 05/01/2021 URINA LYSIS , COMPL ETE W/REF CHIARA TO CULTU RE appearance clear clear normal Not Available [employer] [address] [address] [place], [address], 05/01/2021 14:36:41 04/30/20 21 05/01/2021 URINA LYSIS , COMPL ETE W/REF CHIARA TO CULTU RE specific gravity 1.017 1.001- 1.035 normal Not Available [address], [address], 05/01/2021 14:36:41 04/30/20 21 05/01/2021 URINA LYSIS , COMPL ETE W/REF CHIARA TO CULTU RE pH 5.5 5.0-8. 0 normal Not Available [address], [address], 05/01/2021 14:36:41 04/30/20 21 05/01/2021 URINA LYSIS , COMPL ETE W/REF CHIARA TO CULTU RE glucose negati ve negati ve normal Not Available [address], [address], 05/01/2021 14:36:41 04/30/20 21 05/01/2021 URINA LYSIS , COMPL ETE W/REF CHIARA TO CULTU RE bilirubin negati ve negati ve normal Not Available [address], [address], 05/01/2021 14:36:41 04/30/20 21 05/01/2021 URINA LYSIS , COMPL ETE W/REF CHIARA TO CULTU RE ketones negati ve negati ve normal Not Available [address], [address], 05/01/2021 14:36:41 04/30/20 21 05/01/2021 URINA LYSIS , COMPL ETE W/REF CHIARA TO CULTU RE occult blood negati ve negati ve normal Not Available [address], [address], 05/01/2021 14:36:41 12/20/05/01/2021 URINA LYSIS , COMPL ETE W/REF CHIARA TO CULTU RE protein negati ve negati ve normal Not Available [address], [address], 05/01/2021 14:36:41 04/30/2005/01/2021 URINA LYSIS , COMPL ETE W/REF CHIARA TO CULTU RE nitrite negati ve negati ve normal Not Available [address], [address], 05/01/2021 14:36:41 04/30/2005/01/2021 URINA LYSIS , COMPL ETE W/REF CHIARA TO CULTU RE leukocyte esterase negati ve negati ve normal Not Available [address], [address], 05/01/2021 14:36:41 04/30/20 21 05/01/2021 URINA LYSIS , COMPL ETE W/REF CHIARA TO CULTU RE WBC none seen /hpf < or = 5 normal Not Available [address], [address], 05/01/2021 14:36:41 04/30/20 21 05/01/2021 URINA LYSIS , COMPL ETE W/REF CHIARA TO CULTU RE RBC none seen /hpf < or = 2 normal Not Available [address], [address], 05/01/2021 14:36:41 04/30/20 21 05/01/2021 URINA LYSIS , COMPL ETE W/REF CHIARA TO CULTU RE squamous epithelial cells 0-5 /hpf < or = 5 Not Available [address], [address], 05/01/2021 14:36:41 04/30/20 21 05/01/2021 URINA LYSIS , COMPL ETE W/REF CHIARA TO CULTU RE bacteria none seen /hpf none seen normal Not Available [address], [address], 05/01/2021 14:36:41 04/30/20 21 05/01/2021 URINA LYSIS , COMPL ETE W/REF CHIARA TO CULTU RE hyaline cast none seen /lpf none seen normal Not Available [address], [address], 05/01/2021 14:36:41 04/30/20 21 05/01/2021 CBC (INCL UDES DIFF/ PLT) white blood cell count 5.2 thous and/u L 3.8-10 .8 normal Not Available [address], [address], 05/01/2021 14:36:39 04/30/20 21 05/01/2021 CBC (INCL UDES DIFF/ PLT) red blood cell count 4.41 bonnie on/uL 3.80-5 .10 normal Not Available [address], [address], 05/01/2021 14:36:39 04/30/20 21 05/01/2021 CBC (INCL UDES DIFF/ PLT) hemoglobin 13.3 g/dL 11.7-1 5.5 normal Not Available [address], [address], 05/01/2021 14:36:39 04/30/20 21 05/01/2021 CBC (INCL UDES DIFF/ PLT) hematocrit 40.3 % 35.0-4 5.0 normal Not Available [address], [address], 05/01/2021 14:36:39 04/30/20 21 05/01/2021 CBC (INCL UDES DIFF/ PLT) MCV 91.4 fL 80.0-1 00.0 normal Not Available [address], [address], 05/01/2021 14:36:39 04/30/20 21 05/01/2021 CBC (INCL UDES DIFF/ PLT) MCH 30.2 pg 27.0-3 3.0 normal Not Available [address], [address], 05/01/2021 14:36:39 04/30/20 21 05/01/2021 CBC (INCL UDES DIFF/ PLT) MCHC 33.0 g/dL 32.0-3 6.0 normal Not Available [address], [address], 05/01/2021 14:36:39 04/30/20 21 05/01/2021 CBC (INCL UDES DIFF/ PLT) RDW 11.5 % 11.0-1 5.0 normal Not Available [address], [address], 05/01/2021 14:36:39 04/30/20 21 05/01/2021 CBC (INCL UDES DIFF/ PLT) platelet count 288 thous and/u L 140-40 0 normal Not Available [address], [address], 05/01/2021 14:36:39 04/30/20 21 05/01/2021 CBC (INCL UDES DIFF/ PLT) MPV 9.6 fL 7.5-12 .5 normal Not Available [address], [address], 05/01/2021 14:36:39 04/30/20 21 05/01/2021 CBC (INCL UDES DIFF/ PLT) absolute neutrophils 3167 cells /uL 1500-7 800 normal Not Available [address], [address], 05/01/2021 14:36:39 04/30/20 21 05/01/2021 CBC (INCL UDES DIFF/ PLT) absolute lymphocytes 1555 cells /uL 850-39 00 normal Not Available [address], [address], 05/01/2021 14:36:39 04/30/20 21 05/01/2021 CBC (INCL UDES DIFF/ PLT) absolute monocytes 348 cells /uL 200-95 0 normal Not Available [address], [address], 05/01/2021 14:36:39 04/30/20 21 05/01/2021 CBC (INCL UDES DIFF/ PLT) absolute eosinophils 109 cells /uL 15-500 normal Not Available [address], [address], 05/01/2021 14:36:39 04/30/20 21 05/01/2021 CBC (INCL UDES DIFF/ PLT) absolute basophils 21 cells /uL 0-200 normal Not Available [address], [address], 05/01/2021 14:36:39 04/30/20 21 05/01/2021 CBC (INCL UDES DIFF/ PLT) neutrophils 60.9 % normal Not Available [address], [address], 05/01/2021 14:36:39 04/30/20 21 05/01/2021 CBC (INCL UDES DIFF/ PLT) lymphocytes 29.9 % normal Not Available [address], [address], 05/01/2021 14:36:39 04/30/20 21 05/01/2021 CBC (INCL UDES DIFF/ PLT) monocytes 6.7 % normal Not Available [address] [place], [address], 05/01/2021 14:36:39 04/30/20 21 05/01/2021 CBC (INCL UDES DIFF/ PLT) eosinophils 2.1 % normal Not Available [address], [address], 05/01/2021 14:36:39 04/30/20 21 05/01/2021 CBC (INCL UDES DIFF/ PLT) basophils 0.4 % normal Not Available [address], [address], 05/01/2021 14:36:39 04/30/20 21 05/01/2021 HEMOG LOBIN A1C hemoglobin A1C 5.1 %_of_ total _HGB <5.7 normal Not Available [address], [address], 05/01/2021 14:36:39 04/30/20 21 05/01/2021 COMPR EHENS LOLIS METAB OLIC PANEL glucose 101 mg/dL 65-139 normal Non-f astin g refer ence inter carlita Not Available [address], [address], 05/01/2021 14:36:38 04/30/20 21 05/01/2021 COMPR EHENS LOLIS METAB OLIC PANEL urea nitrogen (BUN) 15 mg/dL 7-25 normal Not Available [address], [address], 05/01/2021 14:36:38 04/30/20 21 05/01/2021 COMPR EHENS LOLIS METAB OLIC PANEL creatinine 0.89 mg/dL 0.50-1 .10 normal Not Available [address], [address], 05/01/2021 14:36:38 04/30/20 21 05/01/2021 COMPR EHENS LOLIS METAB OLIC PANEL eGFR non-afr. gibraltarian 80 mL/mi n/1.7 3m2 > or = 60 normal Not Available [address], [address], 05/01/2021 14:36:38 04/30/20 21 05/01/2021 COMPR EHENS LOLIS METAB OLIC PANEL eGFR 93 mL/mi n/1.7 3m2 > or = 60 normal Not Available [address], [address], 05/01/2021 14:36:38 04/30/20 21 05/01/2021 COMPR EHENS LOLIS METAB OLIC PANEL BUN/creatini ne ratio not applic able (calc ) 6-22 Not Available [address], [address], 05/01/2021 14:36:38 04/30/20 21 05/01/2021 COMPR EHENS LOLIS METAB OLIC PANEL sodium 138 mmol/ L 135-14 6 normal Not Available [address], [address], 05/01/2021 14:36:38 04/30/20 21 05/01/2021 COMPR EHENS LOLIS METAB OLIC PANEL potassium 4.1 mmol/ L 3.5-5. 3 normal Not Available [address], [address], 05/01/2021 14:36:38 04/30/20 21 05/01/2021 COMPR EHENS LOLIS METAB OLIC PANEL chloride 106 mmol/ L 98-110 normal Not Available [address], [address], 05/01/2021 14:36:38 04/30/20 21 05/01/2021 COMPR EHENS LOLIS METAB OLIC PANEL carbon dioxide 22 mmol/ L 20-32 normal Not Available [address], [address], 05/01/2021 14:36:38 04/30/20 21 05/01/2021 COMPR EHENS LOLIS METAB OLIC PANEL calcium 10.4 mg/dL 8.6-10 .2 high Not Available [address], [address], 05/01/2021 14:36:38 04/30/20 21 05/01/2021 COMPR EHENS LOLIS METAB OLIC PANEL protein, total 6.8 g/dL 6.1-8. 1 normal Not Available [address], [address], 05/01/2021 14:36:38 04/30/20 21 05/01/2021 COMPR EHENS LOLIS METAB OLIC PANEL albumin 4.2 g/dL 3.6-5. 1 normal Not Available [address], [address], 05/01/2021 14:36:38 04/30/20 21 05/01/2021 COMPR EHENS LOLIS METAB OLIC PANEL globulin 2.6 g/dL_ (calc ) 1.9-3. 7 normal Not Available [address], [address], 05/01/2021 14:36:38 04/30/20 21 05/01/2021 COMPR EHENS LOLIS METAB OLIC PANEL albumin/glob ulin ratio 1.6 (calc ) 1.0-2. 5 normal Not Available [address], [address], 05/01/2021 14:36:38 04/30/20 21 05/01/2021 COMPR EHENS LOLIS METAB OLIC PANEL bilirubin, total 0.4 mg/dL 0.2-1. 2 normal Not Available [address], [address], 05/01/2021 14:36:38 04/30/20 21 05/01/2021 COMPR EHENS LOLIS METAB OLIC PANEL alkaline phosphatase 82 U/L 31-125 normal Not Available [facility] [employer] [address] [place], [address], 05/01/2021 14:36:38 04/30/20 21 05/01/2021 COMPR EHENS LOLIS METAB OLIC PANEL AST 22 U/L 10-30 normal Not Available [address], [address], 05/01/2021 14:36:38 04/30/20 21 05/01/2021 COMPR EHENS LOLIS METAB OLIC PANEL ALT 19 U/L 6-29 normal Not Available [address], [address], 05/01/2021 14:36:38 04/30/20 21 05/01/2021 LIPID PANEL WITH RATIO S cholesterol, total 171 mg/dL <200 normal Not Available [address], [address], 05/01/2021 14:36:38 04/30/20 21 05/01/2021 LIPID PANEL WITH RATIO S HDL cholesterol 51 mg/dL > or = 50 normal Not Available [address], [address], 05/01/2021 14:36:38 04/30/20 21 05/01/2021 LIPID PANEL WITH RATIO S triglyceride s 169 mg/dL <150 high Not Available [address], [address], 05/01/2021 14:36:38 04/30/20 21 05/01/2021 LIPID PANEL [...] 2068 (http ://ed ucati on.Qu Lucy josue [employer]. com/f aq/FA Q164) Not Available [facility] [address] [place], [address], 05/01/2021 14:36:38 04/30/20 21 05/01/2021 LIPID PANEL WITH RATIO S chol/HDLC ratio 3.4 (calc ) <5.0 normal Not Available [facility] [address] [address] [place], [address], 05/01/2021 14:36:38 04/30/20 21 05/01/2021 LIPID PANEL WITH RATIO S LDL/HDL ratio 1.8 (calc ) Below avera ge Risk: <2.34 [place] ge Risk: 2.35- 4.12 Moder ate Risk: 4.13- 5.56 High Risk: >5.57 Not Available [facility] [address] [address] [place], [address], 05/01/2021 14:36:38 04/30/20 21 05/01/2021 LIPID PANEL WITH RATIO S non HDL cholesterol 120 mg/dL _(johnathan c) <130 normal For patie nts with diabe neyda plus 1 major ASCVD risk facto r, treat ing to a non-H DL-C goal of <100 mg/dL (LDL- C of <70 mg/dL ) is consi lloydd a codey pemike c optio n. Not Available [facility] [address] [place], [address], 05/01/2021 14:36:38 04/30/20 21 05/01/2021 TSH+F REE T4 TSH 0.62 mIU/L normal Refer ence Range > or = 20 Years 0.40- 4.50 Pregn trent Range s First trime ster 0.26- 2.66 Secon d trime ster 0.55- 2.73 Third trime ster 0.43- 2.91 Not Available [address], [address], 05/01/2021 14:36:37 04/30/20 21 05/01/2021 TSH+F REE T4 T4, free 1.0 NG/dL 0.8-1. 8 normal Not Available [address], [address], 05/01/2021 14:36:37 08/10/19 23 08/10/2022 TSH+F REE T4 TSH 0.96 mIU/L normal Refer ence Range > or = 20 Years 0.40- 4.50 Pregn trent Range s First trime ster 0.26- 2.66 Secon d trime ster 0.55- 2.73 Third trime ster 0.43- 2.91 Not Available [address], [address], 08/10/2022 06:12:20 08/10/19 23 08/10/2022 TSH+F REE T4 T4, free 1.2 NG/dL 0.8-1. 8 normal Not Available [address], [address], 08/10/2022 06:12:20 08/10/19 23 08/10/2022 LIPID PANEL WITH RATIO S cholesterol, total 164 mg/dL <200 normal Not Available [address], [address], 08/10/2022 06:12:21 08/10/19 23 08/10/2022 LIPID PANEL WITH RATIO S HDL cholesterol 53 mg/dL > or = 50 normal Not Available [address], [address], 08/10/2022 06:12:21 08/10/19 23 08/10/2022 LIPID PANEL WITH RATIO S triglyceride s 73 mg/dL <150 normal Not Available [facility] [address] [place], [address], 08/10/2022 06:12:21 08/10/1908/10/2022 LIPID PANEL WITH RATIO [...] 2061- 2068 (http ://ed ati on.Qu Lucy Mural.ly. com/f aq/FA Q164) Not Available [facility] [address] [address] [address] [place], [address], 08/10/2022 06:12:21 08/10/1908/10/2022 LIPID PANEL WITH RATIO S chol/HDLC ratio 3.1 (calc ) <5.0 normal Not Available [address] [place], [address], 08/10/2022 06:12:21 08/10/19 23 08/10/2022 LIPID PANEL WITH RATIO S LDL/HDL ratio 1.8 (calc ) Below avera ge Risk: <2.34 [place] ge Risk: 2.35- 4.12 Moder ate Risk: 4.13- 5.56 High Risk: >5.57 Not Available [address], [address], 08/10/2022 06:12:21 08/10/19 23 08/10/2022 LIPID PANEL WITH RATIO S non HDL cholesterol 111 mg/dL _(johnathan c) <130 normal For patie nts with diabe neyda plus 1 major ASCVD risk facto r, treat ing to a non-H DL-C goal of <100 mg/dL (LDL- C of <70 mg/dL ) is izzy godwino n. Not Available [address] [address] [place], [address], 08/10/2022 06:12:21 08/10/19 23 08/10/2022 COMPR EHENS LOLIS METAB OLIC PANEL glucose 89 mg/dL 65-99 normal Fasti ng refer ence inter carlita Not Available [facility] [address] [address] [place], [address], 08/10/2022 06:12:22 08/10/19 23 08/10/2022 COMPR EHENS LOLIS METAB OLIC PANEL urea nitrogen (BUN) 15 mg/dL 7-25 normal Not Available [address] [address] [place], [address], 08/10/2022 06:12:22 08/10/19 23 08/10/2022 COMPR EHENS LOLIS METAB OLIC PANEL creatinine 0.88 mg/dL 0.50-0 .99 normal Not Available [address] [address] [place], [address], 08/10/2022 06:12:22 08/10/19 23 08/10/2022 COMPR EHENS [...] kdoqi /gfr% 5Fcal culat or Not Available [address] [address] [place], [address], 08/10/2022 06:12:22 08/10/19 23 08/10/2022 COMPR EHENS LOLIS METAB OLIC PANEL BUN/creatini ne ratio NOT APPLIC ABLE (calc ) 6-22 Not Available [address], [address], 08/10/2022 06:12:22 08/10/19 23 08/10/2022 COMPR EHENS LOLIS METAB OLIC PANEL sodium 136 mmol/ L 135-14 6 normal Not Available [address], [address], 08/10/2022 06:12:22 08/10/19 23 08/10/2022 COMPR EHENS LOLIS METAB OLIC PANEL potassium 3.8 mmol/ L 3.5-5. 3 normal Not Available [address], [address], 08/10/2022 06:12:22 08/10/19 23 08/10/2022 COMPR EHENS LOLIS METAB OLIC PANEL chloride 101 mmol/ L 98-110 normal Not Available [address], [address], 08/10/2022 06:12:22 08/10/19 23 08/10/2022 COMPR EHENS LOLIS METAB OLIC PANEL carbon dioxide 29 mmol/ L 20-32 normal Not Available [address], [address], 08/10/2022 06:12:22 08/10/19 23 08/10/2022 COMPR EHENS LOLIS METAB OLIC PANEL calcium 10.2 mg/dL 8.6-10 .2 normal Not Available [address], [address], 08/10/2022 06:12:22 08/10/19 23 08/10/2022 COMPR EHENS LOLIS METAB OLIC PANEL protein, total 7.1 g/dL 6.1-8. 1 normal Not Available [address], [address], 08/10/2022 06:12:22 08/10/19 23 08/10/2022 COMPR EHENS LOLIS METAB OLIC PANEL albumin 4.4 g/dL 3.6-5. 1 normal Not Available [address], [address], 08/10/2022 06:12:22 08/10/19 23 08/10/2022 COMPR EHENS LOLIS METAB OLIC PANEL globulin 2.7 g/dL_ (calc ) 1.9-3. 7 normal Not Available [address], [address], 08/10/2022 06:12:22 08/10/19 23 08/10/2022 COMPR EHENS LOLIS METAB OLIC PANEL albumin/glob ulin ratio 1.6 (calc ) 1.0-2. 5 normal Not Available [address], [address], 08/10/2022 06:12:22 08/10/19 23 08/10/2022 COMPR EHENS LOLIS METAB OLIC PANEL bilirubin, total 0.5 mg/dL 0.2-1. 2 normal Not Available [address], [address], 08/10/2022 06:12:22 08/10/19 23 08/10/2022 COMPR EHENS LOLIS METAB OLIC PANEL alkaline phosphatase 78 U/L 31-125 normal Not Available [address] [address] [place], [address], 08/10/2022 06:12:22 08/10/19 23 08/10/2022 COMPR EHENS LOLIS METAB OLIC PANEL AST 20 U/L 10-30 normal Not Available [address], [address], 08/10/2022 06:12:22 03/31/08/10/2022 COMPR EHENS LOLIS METAB OLIC PANEL ALT 21 U/L 6-29 normal Not Available [address] [place], [address], 08/10/2022 06:12:22 08/10/19 23 08/10/2022 HEMOG LOBIN [...] Care in Diabe neyda(A DA). Not Available [address], [address], 08/10/2022 06:12:22 08/10/1908/10/2022 CBC (INCL UDES DIFF/ PLT) white blood cell count 6.0 thous and/u L 3.8-10 .8 normal Not Available [facility] [address] [address] [place], [address], 08/10/2022 06:12:23 08/10/19 23 08/10/2022 CBC (INCL UDES DIFF/ PLT) red blood cell count 4.57 bonnie on/uL 3.80-5 .10 normal Not Available [facility] [place] [id number] [place] [address], [address], 08/10/2022 06:12:23 08/10/19 23 08/10/2022 CBC (INCL UDES DIFF/ PLT) hemoglobin 14.3 g/dL 11.7-1 5.5 normal Not Available [address], [address], 08/10/2022 06:12:23 08/10/1908/10/2022 CBC (INCL UDES DIFF/ PLT) hematocrit 42.6 % 35.0-4 5.0 normal Not Available [address], [address], 08/10/2022 06:12:23 08/10/19 23 08/10/2022 CBC (INCL UDES DIFF/ PLT) MCV 93.2 fL 80.0-1 00.0 normal Not Available [address], [address], 08/10/2022 06:12:23 08/10/19 23 08/10/2022 CBC (INCL UDES DIFF/ PLT) MCH 31.3 pg 27.0-3 3.0 normal Not Available [address], [address], 08/10/2022 06:12:23 08/10/1908/10/2022 CBC (INCL UDES DIFF/ PLT) MCHC 33.6 g/dL 32.0-3 6.0 normal Not Available [address], [address], 08/10/2022 06:12:23 08/10/19 23 08/10/2022 CBC (INCL UDES DIFF/ PLT) RDW 11.6 % 11.0-1 5.0 normal Not Available [address], [address], 08/10/2022 06:12:23 08/10/19 23 08/10/2022 CBC (INCL UDES DIFF/ PLT) platelet count 272 thous and/u L 140-40 0 normal Not Available [address], [address], 08/10/2022 06:12:23 08/10/19 23 08/10/2022 CBC (INCL UDES DIFF/ PLT) MPV 9.0 fL 7.5-12 .5 normal Not Available [address], [address], 08/10/2022 06:12:23 08/10/1908/10/2022 CBC (INCL UDES DIFF/ PLT) absolute neutrophils 4002 cells /uL 1500-7 800 normal Not Available [address], [address], 08/10/2022 06:12:23 08/10/19 23 08/10/2022 CBC (INCL UDES DIFF/ PLT) absolute lymphocytes 1548 cells /uL 850-39 00 normal Not Available [address], [address], 08/10/2022 06:12:23 08/10/19 23 08/10/2022 CBC (INCL UDES DIFF/ PLT) absolute monocytes 372 cells /uL 200-95 0 normal Not Available [address], [address], 08/10/2022 06:12:23 08/10/1908/10/2022 CBC (INCL UDES DIFF/ PLT) absolute eosinophils 48 cells /uL 15-500 normal Not Available [address], [address], 08/10/2022 06:12:23 08/10/1908/10/2022 CBC (INCL UDES DIFF/ PLT) absolute basophils 30 cells /uL 0-200 normal Not Available [address], [address], 08/10/2022 06:12:23 08/10/19 23 08/10/2022 CBC (INCL UDES DIFF/ PLT) neutrophils 66.7 % normal Not Available [facility] [address], [address], 08/10/2022 06:12:23 08/10/19 23 08/10/2022 CBC (INCL UDES DIFF/ PLT) lymphocytes 25.8 % normal Not Available [facility] [address], [address], 08/10/2022 06:12:23 08/10/19 23 08/10/2022 CBC (INCL UDES DIFF/ PLT) monocytes 6.2 % normal Not Available [facility] [address], [address], 08/10/2022 06:12:23 08/10/19 23 08/10/2022 CBC (INCL UDES DIFF/ PLT) eosinophils 0.8 % normal Not Available [facility] [address], [address], 08/10/2022 06:12:23 08/10/19 23 08/10/2022 CBC (INCL UDES DIFF/ PLT) basophils 0.5 % normal Not Available [facility] [address], [address], 08/10/2022 06:12:23 08/10/19 23 08/10/2022 URINA LYSIS , COMPL ETE W/REF CHIARA TO CULTU RE color YELLOW yellow normal Not Available [facility] [address], [address], 08/10/2022 06:12:24 08/10/19 23 08/10/2022 URINA LYSIS , COMPL ETE W/REF CHIARA TO CULTU RE appearance CLOUDY clear abnormal Not Available [facility] [address], [address], 08/10/2022 06:12:24 08/10/19 23 08/10/2022 URINA LYSIS , COMPL ETE W/REF CHIARA TO CULTU RE specific gravity 1.020 1.001- 1.035 normal Not Available [address], [address], 08/10/2022 06:12:24 08/10/19 23 08/10/2022 URINA LYSIS , COMPL ETE W/REF CHIARA TO CULTU RE pH 6.5 5.0-8. 0 normal Not Available [address], [address], 08/10/2022 06:12:24 08/10/19 23 08/10/2022 URINA LYSIS , COMPL ETE W/REF CHIARA TO CULTU RE glucose NEGATI VE negati ve normal Not Available [address], [address], 08/10/2022 06:12:24 08/10/19 23 08/10/2022 URINA LYSIS , COMPL ETE W/REF CHIARA TO CULTU RE bilirubin NEGATI VE negati ve normal Not Available [address], [address], 08/10/2022 06:12:24 08/10/19 23 08/10/2022 URINA LYSIS , COMPL ETE W/REF CHIARA TO CULTU RE ketones NEGATI VE negati ve normal Not Available [address], [address], 08/10/2022 06:12:24 08/10/19 23 08/10/2022 URINA LYSIS , COMPL ETE W/REF CHIARA TO CULTU RE occult blood NEGATI VE negati ve normal Not Available [address], [address], 08/10/2022 06:12:24 08/10/19 23 08/10/2022 URINA LYSIS , COMPL ETE W/REF CHIARA TO CULTU RE protein NEGATI VE negati ve normal Not Available [address], [address], 08/10/2022 06:12:24 08/10/19 23 08/10/2022 URINA LYSIS , COMPL ETE W/REF CHIARA TO CULTU RE nitrite NEGATI VE negati ve normal Not Available [address], [address], 08/10/2022 06:12:24 08/10/19 23 08/10/2022 URINA LYSIS , COMPL ETE W/REF CHIARA TO CULTU RE leukocyte esterase NEGATI VE negati ve normal Not Available [address], [address], 08/10/2022 06:12:24 08/10/19 23 08/10/2022 URINA LYSIS , COMPL ETE W/REF CHIARA TO CULTU RE WBC 0-5 /hpf < or = 5 normal Not Available [address], [address], 08/10/2022 06:12:24 08/10/19 23 08/10/2022 URINA LYSIS , COMPL ETE W/REF CHIARA TO CULTU RE RBC NONE SEEN /hpf < or = 2 normal Not Available [address], [address], 08/10/2022 06:12:24 08/10/19 23 08/10/2022 URINA LYSIS , COMPL ETE W/REF CHIARA TO CULTU RE squamous epithelial cells 10-20 /hpf < or = 5 abnormal Not Available [address], [address], 08/10/2022 06:12:24 08/10/19 23 08/10/2022 URINA LYSIS , COMPL ETE W/REF CHIARA TO CULTU RE bacteria MODERA TE /hpf none seen abnormal Not Available [address], [address], 08/10/2022 06:12:24 08/10/19 23 08/10/2022 URINA LYSIS , COMPL ETE W/REF CHIARA TO CULTU RE hyaline cast 0-5 /lpf none seen abnormal Not Available [address], [address], 08/10/2022 06:12:24 08/10/19 23 08/10/2022 URINA LYSIS , COMPL ETE W/REF CHIARA TO CULTU RE note This urine was joseph zed for the prese nce of WBC, RBC, bacte opal, casts , and other forme d eleme nts. Only those eleme nts seen were repor [place]. Not Available [address], [address], 08/10/2022 06:12:24 08/10/19 23 08/10/2022 REFLE XIVE URINE CULTU RE reflexive urine culture NO CULTU RE INDIC ATED Not Available [address], [address], 08/10/2022 06:12:24 01/11/20 21 01/05/2021 MAMMO , scree maribell, digit al, bilat eral No observ ation record ed. [id number], [place], [address], 07/10/2022 16:58:19 04/02/20 22 01/08/2022 MAMMO , scree maribell, digit al, bilat eral No observ ation record ed. [id number], [place], [address], 07/10/2022 16:58:19 12/05/19 23 12/03/2022 XR, wrist No observ ation record ed. [email or web address] [facility] [address], [place], [address], 12/04/2022 15:53:10 12/20/19 23 12/17/2022 MRI, wrist , w/o contr ast No observ ation record ed. [address] [facility] [address], [place], [address], 12/20/2022 11:12:43 12/20/19 23 12/17/2022 MRI, wrist , w/o contr ast No observ ation record ed. [address] [facility] [address], [place], [address], 12/20/2022 11:12:13 Result Notes None recorded. Problems Name Problem SNOMED Code Status Onset Date Resolution Date Notes Provider Name and Address Organization Details Recorded Time Bacterial conjunctiviti s 785757678 Active Not Available [facility] 3 16:57:07 Acute sinusitis 76472563 Active Not Available [facility] 3 16:57:07 Body mass index 25-29 - overweight 699042486 Active Not Available [facility] 3 16:57:07 Lazy eye 063899177 Active Not Available [facility] 3 16:57:07 Acute otitis media 7695929 Active Not Available [facility] 3 16:57:07 Seasonal allergic rhinitis 316071805 Active Not Available [facility] 3 16:57:07 Change in skin lesion 830521394 Active Not Available [facility] 3 16:57:07 Cough 68672673 Active Not Available [facility] 3 16:57:07 Hoarse 87028387 Active 2021 Not Available [facility] 3 16:57:07 Upper respiratory infection 10181901 Active Not Available [facility] 3 16:57:07 Blepharospasm 16533311 Active Not Available [facility] 3 16:57:07 Allergic rhinitis 95874808 Active Not Available [facility] 3 16:57:07 Varicose veins of lower extremity 95342368 Active 2022 Not Available [facility] 3 16:57:07 Congestion of nasal sinus 82223940 Active 2021 Not Available [facility] 3 16:57:07 Skin lesion 93966877 Active Not Available [facility] 3 16:57:08 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 Medical Equipment None [...] Not Avai lable Vitals Date Recorded Body height Provider Name an d Address Organization Details Last Updated DateTime 05/31/2021 177.17 cm Not Available [facility] 3 16:56:25 Date Recorded Body mass index (BMI) Body height Oxygen saturation Oxygen saturation in Arterial blood by Pulse oximetry Heart rate Body temperature Body weight Systolic blood pressure Diastolic blood pressure Provider Name and Address Organization Details Last Updated DateTime 3 33.1 kg/m2 175.26 cm 99 % 99 % 101 /min 98.1 [degF] 876570. 69 g 122 mm[Hg] 72 mm[Hg] Not Available [facility] 3 16:56:25 Date Recorded Body height Provider Name an d Address Organization Details Last Updated DateTime 07/13/2020 177.17 cm Not Available [facility] 3 16:56:25 Date Recorded Body height Body mass index (BMI) Body weight Body temperature Heart rate Oxygen saturation Oxygen saturation in Arterial blood by Pulse oximetry Systolic blood pressure Diastolic blood pressure Provider Name and Address Organization Details Last Updated DateTime 3 175.26 cm 32.5 kg/m2 63191.3 2 g 97.6 [degF] 74 /min 97 % 97 % 118 mm[Hg] 80 mm[Hg] Samantha Gamboa RN [place] [facility] [place] [employer] [facility] 3 15:58:07 Date Recorded Body mass index (BMI) Body height Oxygen saturation Oxygen saturation in Arterial blood by Pulse oximetry Heart rate Body temperature Body weight Systolic blood pressure Diastolic blood pressure Provider Name and Address Organization Details Last Updated DateTime 1 32.2 kg/m2 177.17 cm 98 % 98 % 101 /min 97.2 [degF] 977681. 1 g 110 mm[Hg] 70 mm[Hg] Not Available [facility] 16:56:25 Social History Question Answer Notes LastModified by [employer] Details LastModified Time Tobacco Smoking Status Never Smoker Not Available [facility] 07/10/2022 16:55:52 What Is Your Level Of Caffeine Consumption? Moderate [id number] Information not available 07/10/2022 How Much Tobacco Do You Chew? None [id number] Information not available 07/10/2022 In The 14 Days Before Symptom Onset, Have You Had Close Contact With A Laboratory-confirm ed COVID-19 While That Case Was Ill? No [id number] Information not available 07/10/2022 In The 14 Days Before Symptom Onset, Have You Had Close Contact With A Person Who Is Under Investigation For COVID-19 While That Person Was Ill? No [id number].[id number] Information not available 07/10/2022 What Type Of Diet Are You Following? REGULAR [id number].[id number] Information not available 07/10/2022 Which Illicit Or Recreational Drugs Have You Used? None [id number].[id number] Information not available 07/10/2022 Are There Any Guns Present In Your Home? Yes MIGRATION.030548 [id number] Information not available 07/10/2022 What Was The Date Of Your Most Recent Tobacco Screening? 07/13/2020 [id number] Information not available 07/10/2022 How Much Tobacco Do You Smoke? No MIGRATION.[id number] Information not available 07/10/2022 How Many Years Have You Smoked Tobacco? 0 [id number].[id number] Information not available 07/10/2022 Have You Recently Traveled Abroad? No MIGRATION.[id number] 1209 Information not available 07/10/2022 Sex: Unknown Functional Status Question Answer Note LastModified by [employer] Details LastModified Time What is your level of alcohol consumption? Occasional [id number] Information not available 07/10/2022 Do you or have you ever used smokeless tobacco? 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 Never used electronic cigarettes MIGRATION.[id number] 026 Information not available 07/10/2022 What is your exercise level? Moderate [id number].[id number] 026 Information not available 07/10/2022 Mental Status None recorded. Family History Relationship Description Onset Age of this Age Resolved Age Notes LastModified by Organization Details LastModified Time Father Malignant tumor of pancreas 54 [id number] Not available 07/10/2022 16:55:56 Paternal Grandmother Malignant tumor of breast MIGRATION.[id number] Not available 07/10/2022 16:55:56 Paternal Aunt Malignant tumor of pancreas MIGRATION.326 [id number] Not available 07/10/2022 16:55:56 Maternal Grandmother Myocardial infarction 59 [id number] Not available 07/10/2022 16:55:56 Medical History Condition Response BLINDNESS N NERVE DISEASE N RHEUMATIC FEVER N BLADDER PROBLEMS N KIDNEY STONES N OTHER # 1 N POLIO N LUNG DISEASE/DISORDER N RADIATION / CHEMOTHERAPY N COPD N Other # 2 N BLOOD DISEASES N SURGERY N EAR OR HEARING PROBLEMS N MUMPS N BOWEL PROBLEMS N DEPRESSION (INCLUDING POST ) N STROKE/TIA N ULCERS N BENIGN PROSTATIC HYPERPLASIA N MEASLES N MYOCARDIAL INFARCTION N OBESITY N GERD/NAUSEA N ANEURYSM N URINARY/BLADDER/KIDNEY PROBLEMS N INPATIENT PSYCH CARE N CORONARY ARTERY DISEASE (CAD) N ADDICTION CONCERNS N Impotence N ENDOMETRIOSIS [...] HAVE YOU BEEN HOSPITALIZED OR SEEN IN [facility] IN THE PAST YEAR ? N [...] Recorded Time Tdap 10/11/2019 completed Not Available [facility] 07/10/2022 16:58:15 Past Encounters Encounter ID Performer Location Encounter Start Date Encounter Closed Date Diagnosis/Indication Diagnosis SNOMED-CT Code Diagnosis ICD10 Code Diagnosis Note [id number] EDGAR Sears [facility] [address] [place] [address] 07/13/2020 00:00:00 08/03/2020 23:42:57 [id number] EDGAR Sears [facility] [place] [address] [place] [address], [address] [place] [address] 02/06/2021 00:00:00 02/06/2021 20:00:05 [id number] EDGAR Sears [facility] [place] [address] [place] [address] 05/31/2021 00:00:00 06/11/2021 00:11:03 [id number] EDGAR Sears [facility] [place] [address] [place] [address] 07/03/2022 00:00:00 07/06/2022 22:25:01 [id number] EDGAR Sears [facility] [place] [address] [facility] [address] [place] [address] 12/03/2022 15:48:46 12/03/2022 16:32:56 Injury of wrist 129066068 S69.92XA check xray of wrist to evaluate [...] Lopez Member ID Guarantor Name 12/03/2022 1 [employer] - OPEN ACCESS [id number] Silverio Hutchison [id number] BRIAN Hutchison Notes Date Note Type Note [...] otc, decongestants or cold medicine Not Available [employer] 08/03/2020 23:42:57 02/06/2021 text/html Generic HPI TemplateReported bypatient.Notes:Pt is here today for her wellness exam, doing fine, no complaints Not Available [facility] 02/06/2021 20:00:05 05/31/2021 text/html Sinusitis/Allerg yRepo rted [...] DM; no HIV; no immunodeficiency Not Available [place] [employer] [facility] [place] 06/11/2021 00:11:03 12/03/2022 text/html Generic HPI TemplateReported bypatient.Location:le ft wrist Quality:soreness, sharp pain, aching Context:old fall a few years ago is when it started. Aggravating factors:movement, weight bearing EDGAR Sears [address] [facility], [place] [address], [place], [address], [facility] 12/06/2022 10:39:44 OBGyn Episode No OBEpisode recorded.
== END 2024-10-19 10:27 | disposition home or self-care (01) ==
PROVIDERS: PCP Physician Assistant; Visit Provider Surgery
DX: N63.11 Unspecified lump in the right breast, upper outer quadrant (principal); Z12.39 Encounter for other screening for malignant neoplasm of breast; Z80.3 Family history of malignant neoplasm of breast; R92.8 Other abnormal and inconclusive findings on diagnostic imaging of breast; R92.333 Mammographic heterogeneous density, bilateral breasts
CPT/HCPCS: 77049; A9577; C8908

== ENCOUNTER 2025-04-06 12:17 | Outpatient (CLI) | payer OTHER, SELFPAY ==
--- NOTE | ~2025-04-06 | MMUS_ITS ---
EXAMINATION: MM diagnostic katina RT w citlaly, US breast BI limited HISTORY: Additional imaging TECHNIQUE: Craniocaudal and mediolateral oblique 3-D tomosynthesis images were obtained and synthetic 2-D images were generated. CAD analysis was submitted and interpreted. Grayscale sonography over the area(s) of interest with color Doppler if there is a finding. COMPARISON: Studies dating back to September 01, including an MR from October 19. BREAST PARENCHYMAL COMPOSITION: The breast tissue is extremely dense, which lowers the sensitivity of mammography. MAMMOGRAM FINDINGS: No suspicious masses are seen mammographically. There are no suspicious calcifications. No unexplained architectural distortion is seen. There are no skin or nipple abnormalities identified. There is no adenopathy seen on the images submitted. ULTRASOUND FINDINGS: Sonography through the anterior 10:00 position on the right again demonstrates a circumscribed, homogeneous mass with a few low-level echoes and a maximum dimension of 5 mm, previously 6 mm. At 3:00 in the left, a similar small masses seen with a maximum dimension of 5 mm. And a parallel orientation. The maximum dimension is 5 mm, unchanged. IMPRESSION: The structures in question are stable to decreased in size. These have been characterized by MR as benign, and are considered benign. The patient may return to screening mammography as per ACR guidelines. BI-RADS Code: 2 - Benign. Reviewed, dictated and finalized at location B. 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 These have been jailene racterized by MR as benign, and are considered benign. The patient may return t o screening mammography as per ACR guidelines. BI-RADS Code: 2 - Benign.
--- OUTSIDE RECORDS SUMMARY | 2025-04-06 12:36 | XMS_ITS | Clinical Summary ---
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 Gender Identity Not on file Sexual Orientation Not on file Plan of Treatment Health Maintenance Due Date Last Done Comments Hepatitis C Virus (HCV) Screening 1978 Hepatitis B Immunization (1 of 3 - 19+ 3-dose series) 1997 Pap Smear 09/10/1999 Cervical Cancer Screening (CCS) 2008 HPV/Cotest 2008 Cologuard 09/10/2023 Colonoscopy 09/10/2023 Colorectal Cancer Screening 09/10/2023 Immunochemical Fecal Occult Blood 09/10/2023 Influenza Immunization (#1) 2025 SARS-COV-2 Immunization ( season) 2025 Respiratory Syncytial Virus (RSV) Immunization (Adult) (1 - 1-dose 75+ series) 2053 DTaP/Tdap/Td Immunization Discontinued 09/29/2019 TdaP Immunization Completed 09/29/2019 Human Papillomavirus (HPV) Immunization Aged Out No longer eligible b ased on patient's age to complete this topic Meningococcal Immunization (ACWY) Aged Out No longer eligible based on patient's age to complete this topic Pneumococcal Immunization Combined Aged Out No longer eligible based on patient's age to complete this topic Rotavirus Immunization Aged Out No lo nger eligible based on patient's age to complete this topic
--- OUTSIDE RECORDS SUMMARY | 2025-04-06 12:36 | XMS_ITS | Data Portability ---
Author Organization [facility] JASPhilgene Conner Address [address] [place] [address] Care Team Providers Care Casket Trimmer Name Role Phone FREDO FARIAS Primary Care Provider Unavailab le Assessment No assessment recorded. Plan of Treatment Reminders Order Date Submit Date Provider Last Modified By Organization Details Last Modified Time Details Appointments ANNUAL 2024 09:30A M EDGAR Sears Not available Not available Not available ANNUAL 2025 11:00A M EDGAR Sears Not available Not available Not available Lab rapid strep group A, throat 2024 025 [email or web address] In-Office Order, Internal Use Only DO Not Attach Compendium DO Not Attach Compendium, Do Not Delete/merge, [id number] 06/08/2024 17:54:25 influenza virus A + B + SARS-CoV- 2 (COVID19) Ag panel, rapid IA, upper respirato ry specimen 2024 025 [email or web address] In-Office Order, Internal Use Only DO Not Attach Compendium DO Not Attach Compendium, Do Not Delete/merge, [id number] 06/08/2024 17:54:25 TSH + free T4, serum 2023 024 [facility], [address], [place], [address], 10/08/2024 10:22:58 lipid panel, serum 2023 024 [facility], [address], [place], [address], 10/08/2024 10:22:41 CBC w/ auto diff 2023 024 [facility], [address], [place], [address], 10/08/2024 10:23:09 vitamin B12 + folate, serum or blood 2023 024 [facility], [address], [place], [address], 10/08/2024 10:23:19 CMP, serum or plasma 2023 024 [facility], [address], [place], [address], 10/08/2024 10:23:27 HbA1c (hemoglob in A1c), blood 2023 024 [facility], [address], [place], [address], 10/08/2024 10:22:50 Referral None recorded. Procedures None recorded. Surgeries None recorded. Imaging MAMMO, screening , digital, bilateral 2023 024 [facility] (Mammography) , [address], [place], [address], 07/22/2024 10:18:58 Medication Orders None recorded. Patient TargetsNo [...] DO Not Attach Compendium, Do Not Delete/merge, [id number] 06/04/2024 15:37:19 06/04/19 25 06/04/2024 influ antonieta virus A + B + SARS- CoV-2 (COVI D19) Ag panel , rapid IA, upper respi rator y speci men Flu B negati ve Not Available In-Office Order Internal Use Only DO Not Attach Compendium DO Not Attach Compendium, Do Not Delete/merge, [id number] 06/04/2024 15:37:19 06/04/19 25 06/04/2024 influ antonieta virus A + B + SARS- CoV-2 (COVI D19) Ag panel , rapid IA, upper respi rator y speci men Rapid SARS CoV 2 Ag, QL IA, respiratory specimen negati ve Not Available In-Office Order Internal Use Only DO Not Attach Compendium DO Not Attach Compendium, Do Not Delete/merge, [id number] 06/04/2024 15:37:19 06/04/19 25 06/04/2024 rapid strep group A, throa t Strep negati ve Not Available In-Office Order Internal Use Only DO Not Attach Compendium DO Not Attach Compendium, Do Not Delete/merge, [id number] 06/04/2024 15:08:50 09/02/19 25 09/01/2024 MAMMO , scree maribell, digit al, bilat eral No observ ation record ed. [address] [facility], [place], [address], 09/02/2024 10:36:22 09/17/19 25 09/16/2024 MAMMO , diagn ostic , digit al, bilat eral No observ ation record ed. [facility] (Mammography) [address], [place], [address], 09/17/2024 11:09:06 10/21/19 25 10/19/2024 MRI, breas t, bilat eral, w/wo contr ast No observ ation record ed. [email or web address], [place], [address], 10/30/2024 22:02:43 Result Notes None recorded. Problems Name Problem SNOMED Code Status Onset Date Resolution Date Notes Provider Name and Address Organization Details Recorded Time Body mass index 25-29 - overweight 790457024 Active 024 Anhtony Coates MA [facility], [facility] 11:27:13 Problem Notes None recorded. Medical Equipment None Reported. Allergies No known drug allergies Medications Name Sig Start Date Stop Date Status Note LastModified by Organization Details LastModified Time Mirena 21 mcg/24 hr (up to 8 years) 52 mg intrauterin e device Take by intrauter ine route. active Not Available Not Available No t Available prednisone 20 mg tablet Take 2 tablets every day by oral route for 5 days. 03/29 completed Not Available Not Available Not Available oxycodone-a cetaminophe n 5 mg-325 mg tablet PLEASE SEE ATTACHED FOR DETAILED DIRECTION S 04/06 completed Not Available Not Available Not Available alprazolam 0.5 mg tablet Take 1 tablet by oral route for 1 day. active Not Available Not Available No t [...] TAKE 1 TABLET BY MOUTH EVERY DAY 2024 active Not Available Not Available Not Avai lable Vitals Date Recorded Systolic And Diastolic Provider Name and Address Organization Details Last Updated DateTime 01/15/2024 110/80 mm[Hg] EDGAR Sears Attn: Accounting,[address] [place], [address], [facility] 01/15/2024 11:58:41 Date Recorded Body weight Body mass index (BMI) Body height Respiratory rate Oxygen saturation Heart rate Systolic And Diastolic Provider Name and Address Organization Details Last Updated DateTime 4 39950.2 1 g 27.8 kg/m2 177.8 cm 18 /min 99 % 91 /min 118/72 mm[Hg] Anthony Coates MA [facility] 4 11:29:38 Date Recorded Body height Body mass index (BMI) Body weight Oxygen saturation Heart rate Systolic And Diastolic Provider Name and Address Organization Details Last Updated DateTime 5 177.8 cm 27.8 kg/m2 22059.9 2 g 98 % 75 /min 120/78 mm[Hg] Anthony Coates MA [facility] 5 15:49:17 Date Recorded Body height Body mass index (BMI) Body weight Respiratory rate Oxygen saturation Heart rate Systolic And Diastolic Provider Name and Address Organization Details Last Updated DateTime 5 177.8 cm 28.5 kg/m2 42312.3 7 g 17 /min 100 % 82 /min 122/78 mm[Hg] Anthony Coates MA [facility] 5 10:36:03 Social History Question Answer Notes LastModified by Organizat ion Details LastModified Time Tobacco Smoking Status Never Smoker Anthony Coates MA [facility] 01/15/2024 11:25:02 Do You Have An Advance [...] Date Of Your Most Recent Tobacco Screening? 03/17/2025 Information not available 03/17/2025 What Is Your Relationship Status? Information not [...] 01/15/2024 Are you able to care for yourself independently? 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 Occasional Information not available 01/15/2024 Mental Status Question Answer Note LastModified by Organization D etails LastModified Time Do you feel stressed (tense, restless, nervous, or anxious, or unable to sleep at night)? [id number] Information not available 01/15/2024 Family History Relationship [...] [email or web address] Not available 2023 12:24:36 Father Malignant neoplasm of pancreas [email or web address] Not available 2023 12:24:47 Medical History Condition Response Coronary Artery Disease N Other N Atrial Fibrillation N High Blood Pressure N Depression N COPD N Blood Clots N Anxiety Disorder N Muscle, Joint, or Bone Problems N Acid Reflux (GERD) N Cancer N Stroke N Headaches N Kidney or Bladder Problems N Have you had a mammogram in the last yea r? N Skin Problems N Asthma N Allergies N Have you had a PSA blood test in the las t year? N Hepatitis N High Cholesterol N Liver Disease N Thyroid Problems N GI Problems N Anemia N Heart Attack (PA) N Diabetes N Seizures/Epilepsy N Have you had a colonoscopy in the last 1 0 years? N Heart Failure N Osteoporosis N Gynecological History Statement/Question Response Menses Monthly N Current Control Method IUD Obstetrics History GPAL:G 0 P 0 0 0 0 Immunizations Vaccine Type Date Status Note Provider Nam e and Address Organization Details Recorded Time Tdap 09/29/2019 completed Not Available [employer] 04/06/2025 10:28:08 Past Encounters Encounter ID Performer Location Encounter Start Date Encounter Closed Date Diagnosis/Indication Diagnosis SNOMED-CT Code Diagnosis ICD10 Code Diagnosis IMO Codes Diagnosis Note [id number] Mazin Burgess MD [facility] [employer] [address] [place] [address] 01/15/2024 11:13:18 01/15/2024 13:28:33 Adult health examination 188789517 Z00.00 Annual wellness exam complete Cholesterol screening 27 3908570 Z13.220 Fasting lipid panel is due Diabetes m ellitus screening 897435236 Z13.1 Annual A1c screening is due Thyroid di sorder screening 630038740 Z13.29 Routine thyroid labs were ordered Long-term drug therapy 450918342 Z79.899 cmp, cbc and b12, folate labs are due Screening mammography 24 644618 Z12.31 Annual mammogram is ordered Body mass index 25-29 - overweight 316088827 Z68.27 BMI is 27.8 [id number] Mazin Burgess MD [facility] [employer] [address] [place] [id number] 04/06/2025 10:26:39 04/06/2025 11:42:30 Overweight in adulthood with body mass index of 25 or more but less than 30 613016866 E66.3 Z68.28 5697598536 BMI is 28.5 Seasonal a llergic rhinitis 288013567 J30.2 Adult heal th examination 464158601 Z00.00 Annual wellness exam complete Cholesterol screening 27 7144965 Z13.220 Fasting lipid panel is due Diabetes m ellitus screening 575947686 Z13.1 Annual A1c screening is due Thyroid di sorder screening 367118185 Z13.29 Routine thyroid labs were ordered Long-term drug therapy 883984220 Z79.899 cmp, cbc and b12, folate labs are due [id number] Mazin Burgess MD [facility] [address] [place] [address] 06/04/2024 14:49:22 06/07/2024 15:16:04 Sore throat 440100791 J02.9 [id number] EDGAR Sears [facility] [address] [place] [address] 03/17/2025 15:16:05 03/17/2025 16:20:26 Overweight in adulthood with body mass index of 25 or more but less than 30 417153384 E66.3 Z68.27 4252550713 BMI is 27.8 Dysfunctio n of left eustachian tube 0573599186 364733 H69.92 59188189 Health Concerns Section Related Observation LastModified by Organization Detai ls LastModified Time None Recorded Concern Status LastModified by Organization Details LastModified Time None Recorded Advance Directives Directive N: Payers Insurance Date Sequence Insurance Name Policy Number Policy Lopez Covered Member ID Lopez Member ID Guarantor Name 04/03/2025 1 [employer] Silverio Hutchison [id number] OI Jennifer Hutchison 03/25/2024 1 [employer] - ALLIED BENEFITS - OPEN ACCESS [id number] Silverio Hutchison [id number] OI Jennifer Hutchison 09/02/2024 1 [facility] [id number] Jennifer Hutchison [id number] S OI Jennifre Hutchison Notes Date Note Type Note Provider Name and Address Organization Details Recorded Time 01/15/2024 text/html Patient is here for annual wellness exam. She is due for all regular fasting labs. She is exercising and eating healthy and has lost weight and feels terrific. She has no complaints EDGAR Sears Attn: Accounting,[address] [place], [address], [place] [facility] 01/18/2024 23:32:31 OBGyn Episode No OBEpisode recorded.
--- OUTSIDE RECORDS SUMMARY | 2025-04-06 12:36 | XMS_ITS | Clinical Summary ---
Author Organization [email or web address] Address [address] [place] [address] Care Team Providers Care Edger Technician Name Role Phone Unavailable Primary Care Provider Unavailabl e Source Comments [facility],non-owned Affiliates and Associated Physician Practices is amultiple site organization consisting of ambulatory clinics and hospital sitesin [place], [place], [place] and [place]. This disclosure is being madepursuant to the Care Everywhere program and may not contain all information available regarding this patient. Last updated 18.[employer] [facility] Allergies No known active allergies Medications * Be aware that medications may not be up to date on this document. Alwaysverify current medications with the patient. 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 Gender Identity Not on file Sexual Orientation Not on file Last Filed Vital Signs Vital Sign Reading Time Taken Comments Blood Pressure 120/82 04/09/2021 12:10 PM RESIDENTIAL ELECTRICIAN Pulse 91 04/09/2021 12:10 PM RESIDENTIAL ELECTRICIAN Temperature 37.2 C (98.9 F) 04/09/2021 12:10 PM RESIDENTIAL ELECTRICIAN Respiratory Rate 16 04/09/2021 12:10 PM RESIDENTIAL ELECTRICIAN Oxygen Saturation 97% 04/09/2021 12:10 PM RESIDENTIAL ELECTRICIAN Inhaled Oxygen Concentration - - Weight 90.7 kg (200 lb) 04/09/2021 12:10 PM RESIDENTIAL ELECTRICIAN Height 177.8 cm (5' 10) 04/09/2021 12:10 PM RESIDENTIAL ELECTRICIAN Body Mass Index 28.7 04/09/2021 12:10 PM RESIDENTIAL ELECTRICIAN Plan of Treatment Health Maintenance Due Date [...] of 3 - 19+ 3-dose series) 1997 PAP SMEAR 09/10/1999 Cervical Cancer Screening 2008 PAP with HPV 2008 SCREENING FOR DIABETES 04/09/2021 DEPRESSION SCREENING 05/12/2024 COVID-19 VACCINE (1 - 2024-2 6 season) 2025 INFLUENZA VACCINE (#1) 2025 ZOSTER VACCINE (1 of 2) 2028 [...] patient's age to complete this topic Insurance [employer]
--- OUTSIDE RECORDS SUMMARY | 2025-04-06 12:36 | XMS_ITS | Clinical Summary ---
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 Active Active Problems Patient Care Coordination No te Formatting of this note migh t be different from the original. Primary Care: EDGAR Hernandez Referring Provider: Chelsea [facility] [place] [address] Other: Problem Noted Date Diagnosed Date BRCA [...] on file Legal Sex Female 5:44 AM CAFE LEAD Gender Identity Not on file Sexual Orientation Not on file Last Filed Vital Signs Vital Sign Reading Time Taken Comments Blood Pressure 98/67 04/22/2017 3:19 PM CAFE LEAD Pulse 84 03/17/2017 10:13 AM CAFE LEAD Temperature 36.9 C (98.4 F) 03/17/2017 10:13 AM CAFE LEAD Respiratory Rate 16 03/17/2017 10:13 AM CAFE LEAD Oxygen Saturation - - Inhaled Oxygen Concentration - - Weight 89.8 kg (198 lb) 05/30/2017 1:40 PM CAFE LEAD Height 180.3 cm (5' 11) 04/22/2017 3:19 PM CAFE LEAD Body Mass Index 27.62 04/22/2017 3:19 PM CAFE LEAD Plan of Treatment Health Maintenance Due Date [...] Q 5 years 09/10/2023 INFLUENZA VACCINE (#1) 2024 HPV VACCINES Aged Out No longer eligi [...] is now made to previous sonograms from [facility]. No comparison mammograms are identified. Therefore the current study will need to serve as a baseline exam. Breast parenchyma is heterogeneously dense. No dominant masses, suspicious calcifications or areas of asymmetry or distortion are identified. IMPRESSION: Negative baseline screening mammogram. Recommend routine follow-up. OVERALL ASSESSMENT: BI-RADS category 1 - Negative Dictated from: [facility] Impressions 12/01/2016 8:23 PM CDT IMPRESSION: No prior films are currently available for comparison. The prior films will be requested and once received an addendum will be made. Overall Assessment: BI-RADS Category 0 - Incomplete: Needs comparison to prior images. Dictation Location: [facility] Narrative 12/01/2016 8:23 PM CDT BILATERAL SCREENING [...] Needs comparison to prior images. Dictation Location: [facility] us Elidia Jara MD MAMMO ORDERABLES Edited Result - Final from Last 3 Months or Most Recently Relevant to Health Maintenance Insurance [employer] [facility] [place] [facility] Address: [facility] [address] [place] [address] Care Teams Elementary School Director Relationship Specialty Start Date End Date Chelsea Aquino PA PCP - General 10/18/08
--- OUTSIDE RECORDS SUMMARY | 2025-04-06 12:37 | XMS_ITS | Clinical Summary ---
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 Name Role Phone Keely Aquino Primary Care Provider [phone] Allergies No known active allergies Medications levonorgestrel [...] 9:17 AM CDT Height 177.8 cm (5' 10) 12/05/2021 9:17 AM CDT Body Mass Index 31.71 12/05/2021 9:17 AM CDT Plan of Treatment Health Maintenance Due Date Last Done Comments Colorectal Cancer Screening Colonoscopy (10 Years) 1978 Hepatitis C 1996 Hepatitis B Vaccines (1 of 3 - 19+ 3-dose series) 1997 Annual Physical 12/05/2022 12/05/2021, 11/10, 09/29/2019 Mammogram Screening 01/09/2024 01/08/2022, 01/05/2021, 01/05/2021, Additional history exists Cervical Cancer Screening Pap Smear (Age 30 to 64) Every 3 Years 12/05/2024 12/05/2021, 10/13/2019 COVID-19 Vaccine ( season) 2025 Influenza Adult (#1) 2025 Cervical Cancer Screening Pap with HPV Testing (Age 30 to 64) Every 5 Years 12/05/2026 12/05/2021 Cervical Cancer Screening with HPV 12/05/2026 DTaP, Tdap and Td Vaccines (2 - Td or Tdap) 09/28/2029 09/29/2019 Hepatitis A Vaccines Aged Out No long er eligible based [...] DESCRIPTION CERVICAL/END OCERVICAL 12/07/2021 7:16 AM CDT [facility] HPV DNA HIGH RISK NEGATIVE NEGATIVE 12/07/2021 3:10 PM CDT [facility] Comment:SEE CYTOLOGY REPORT 12/05/2021 12:0 0 PM CDT Keely HERNÁNDEZ PATHOLOGY/CYTOLOGY ORDERABLE S Final Result [facility] [address] [place] [address], * Cytopath Cerv/Vag Thin Layer (12/05/2021 6:54 AM CDT) THIN PREP PAP [facility] [address] [place] [address] Department of Pathology Pathology Report CERVICAL/VAGINAL PAP SMEAR REPORT Name: JENNIFER HUTCHISON Age: 5 1980 (Age: 41) Location: [facility] Sex: F Collected Date: 12/05/2021 [facility] #: [id number] Date Received: 12/07/2021 Date Reported: 12/11/2021 Provider: [...] is not effective in detecting cervical adenocarcinoma. [facility] 12/05/2021 6:54 AM CDT 12/07/2021 6:54 AM CDT Comment:CERVICAL/ENDOCERVICA L Keely HERNÁNDEZ PATHOLOGY/CYTOLOGY ORDERABLE S Final Result [facility] [address] 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
== END 2025-04-06 12:18 | disposition home or self-care (01) ==
LOC: ANHFOHIMG 12:18
PROVIDERS: PCP Obstetrics & Gynecology; Visit Provider Surgery
DX: N63.11 Unspecified lump in the right breast, upper outer quadrant (principal); N63.25 Unspecified lump in the left breast, overlapping quadrants; R92.8 Other abnormal and inconclusive findings on diagnostic imaging of breast
CPT/HCPCS: 76642; 77061; 77065; G0279